=== PATIENT | female | born 1945 | race Caucasian/White ===

== ENCOUNTER 2018-04-13 18:13 | Inpatient (IN) ==
--- NOTE | 2018-04-13 19:38 | Diag Imaging Result Doc PS360 ---
CHEST-PORTABLE - 04/13/2018 INDICATION: AMS COMPARISON: 04/02/2018 FINDINGS: The lungs are normally expanded and clear. Heart size and mediastinal contours are normal. No pneumothorax or pleural effusion. IMPRESSION: Negative exam. Electronically signed by Hernando Renteria 04/13/2018 7:36 PM
[2018-04-13 19:58] LABS: BASO# 0.08 X1000 (0.0-0.2); BASO% 0.9 % (0.0-0.8); EOS# 0.24 X1000 (0.0-0.7); EOS% 2.7 % (0.0-10.0); HEMATOCRIT 44.5 % (37.0-47.0); HEMOGLOBIN 14.3 g/dL (12.0-16.0); IMM GRAN# 0.05 X1000 (0.0-0.04); IMM GRAN% 0.6 % (0.0-0.5); LYMPH# 2.06 X1000 (1.2-3.4); LYMPH% 23.2 % (20.5-51.1); MCHC 32.1 g/dL (33-37); MONO# 1.25 X1000 (0.11-0.59); MONO% 14.1 % (1.7-9.3); MPV 9.4 FL (7.4-10.4); NEUT% 58.5 % (42.2-75.2); PLT 631 X1000 (130-400); RDW 15.5 % (11.5-14.5); WBC 8.88 X1000 (4.8-10.8)
[2018-04-13 20:02] LABS: INR 1.06; PROTIME 14.6 Seconds (11.0-16.0)
[2018-04-13 20:23] LABS: AGAP 13; ALB/GLOB RATIO 1.4; ALKALINE PHOSPHATASE 134 U/L (32-104); BUN 11 mg/dL (8-22); CALCIUM 10.3 mg/dL (8.8-10.2); CHLORIDE 98 mmol/L (98-107); CK PROFILE 21 U/L (24-173); COSMO 281; CREATININE 0.8 mg/dL (0.5-0.9); ESTIMATED GFR > 60; GLUCOSE 177 mg/dL (70-104); GOT 50 U/L (10-30); GPT 32 U/L (10-36); MAGNESIUM 1.8 mg/dL (1.5-2.7); POTASSIUM 4.8 mmol/L (3.5-5.1); SODIUM 139 mmol/L (136-145); TCO2 28 mmol/L (25-35); TOTAL BILIRUBIN 0.36 mg/dL (0.20-1.00); TOTAL PROTEIN 6.8 g/dL (6.3-8.3)
--- NOTE | 2018-04-13 20:39 | Diag Imaging Result Doc PS360 ---
CT HEAD W/O CONTRAST - 04/13/2018 INDICATION: AMS COMPARISON: 04/08/2018 FINDINGS: The ventricles and sulci are normal in size and contour. No intracranial mass or hemorrhage. The skull is intact. The sinuses mastoids and middle ears are clear. IMPRESSION: Negative exam. This exam was performed using automated exposure control, adjustment of mA or kV according to patient size, and/or use of iterative reconstruction technique Electronically signed by Hernando Renteria 04/13/2018 8:37 PM
[2018-04-14 00:18] LABS: URINE SOURCE CATH
[2018-04-14 00:47] LABS: BILIRUBIN URINE NEGATIVE (NEGATIVE); BLOOD URINE SMALL (NEGATIVE); COLOR YELLOW; GLUCOSE URINE NEGATIVE (NEGATIVE); KETONE URINE NEGATIVE (NEGATIVE); LEUKOCYTES URINE LARGE (NEGATIVE); NITRITE URINE NEGATIVE (NEGATIVE); PROTEIN URINE TRACE mg/dL (NEGATIVE); TURBIDITY URINE HAZY (CLEAR); UR EPITHELIAL CELLS <10 /HPF (<10); URINE BACTERIA NEGATIVE /HPF; URINE RBC <10 /HPF (<10); URINE WBC TNTC /HPF (<10); UROBILINOGEN URINE NORMAL (NORMAL)
[2018-04-14] MEDS ORDERED: NS 1,000 ML IV ONE (00:51)
[2018-04-14] MEDS ORDERED: ROCEPHIN 2 GM in NS 50 ML IV ONE (00:51)
--- NOTE | 2018-04-14 00:54 | PROVIDER DOCUMENTATION ---
This chart was entered by Ольга Fontanez Scribe, acting as scribe for Radha Campos MD. HPI-Neurological Disorder - General Chief Complaint: Altered Mental Status Stated Complaint: AMS Time Seen by Provider: 04/13/18 18:18 Source: EMS, senior living records Unable to obtain history due to:: altered Allergies/Adverse Reactions: Patient Allergies Allergy/AdvReac Type Severity Reaction Status Date / Time Neuromuscular Blockers, AdvReac Severe SWELLING Verified 03/29/18 13:46 Steroidal [Steroidal Neuromuscular Blockers] Home Medications: Home Medication List Medication Instructions Recorded Confirmed Last Taken Type Trazodone [Desyrel] 100 mg PO QHS 06/13/12 04/02/18 04/01/18 21:00 History Clonidine [Catapres] 1 tab PO BID 04/25/13 04/02/18 04/02/18 08:00 History Glipizide [Glucotrol] 20 mg PO BID 04/25/13 04/02/18 04/02/18 08:00 History Levothyroxine [Synthroid] 50 microgm PO DAILY 04/25/13 04/02/18 04/02/18 08:00 History Saxagliptin HCl/Metformin HCl 1 each PO DAILY 04/25/13 04/02/18 04/01/18 08:00 History [Kombiglyze Xr 2.5-1,000 mg Tab] Verapamil HCl [Verapamil ER] 240 mg PO BID 04/25/13 04/02/18 04/02/18 08:00 History Fesoterodine E.r [Toviaz] 4 mg PO HS 10/02/13 04/02/18 04/01/18 21:00 History Loratadine [Alavert] 10 mg PO DAILY 10/02/13 04/02/18 04/02/18 08:00 History Mirabegron [Myrbetriq] 25 mg PO DAILY 10/02/13 04/02/18 04/02/18 08:00 History Om-3/Epa/Dha/Fish Oil/Flax/E 3 each PO DAILY 10/02/13 04/02/18 04/02/18 08:00 History [Thera Tears Nutrition Capsule] LOVAstatin [Mevacor] 40 mg PO HS 07/12/17 04/02/18 03/31/18 21:00 History Montelukast [Singulair] 10 mg PO QHS 07/12/17 04/02/18 04/01/18 21:00 History Papaya [Papaya Enzyme] 1 ea PO 4XDAY #120 tab 07/15/17 04/02/18 04/01/18 21:00 Rx Loxapine Succinate [Loxapine] 5 mg PO QHS 01/26/18 04/02/18 04/01/18 21:00 History Magnesium Oxide [Mag-Oxide 200 mg PO TID #30 tab 03/29/18 04/02/18 04/02/18 08: 00 Rx Magnesium] Alprazolam 0.25 mg PO BID PRN PRN 04/02/18 04/02/18 04/01/18 21:00 History Imipramine HCl 10 mg PO QHS 04/02/18 04/02/18 04/01/18 21:00 History Loxapine [Loxitane] 5 mg PO QHS 04/02/18 04/02/18 04/01/18 21:00 History Oxycodone HCl/Acetaminophen 5 mg PO 4XDAY PRN PRN 04/02/18 04/02/18 Unknown History [Percocet 5-325 mg Tablet] Gabapentin [Neurontin] 100 mg PO TID capsule 04/08/18 Unknown Rx Lubiprostone [Amitiza] 8 microgm PO BID capsule 04/08/18 Unknown Rx - History of Present Illness-Neuro Nature of Presenting Problem: pt is a 72 yr old female presenting via EMS from senior living with 2 day complaint of AMS, pt not speaking, no weakness or facial drooping, pt follows physical commands but will not speak Onset/Duration: reports: 2 days ago Context: reports: other (pt aphasic per nursing staff x 2 days) Approximate time patient was last seen normal?: 00:00 (2 days ago) Character of Altered Mental Status: reports: other (aphasic) Any recent trauma/injury?: reports: none Character of Deficits: reports: impaired speech (aphasic) New weakness or altered sensation location:: reports: none Cognitive Baseline: other (alert, aphasic) Similar Symptoms Previously?: No Recently seen or treated by another doctor?: Yes Review of Systems - Adult - REVIEW OF SYSTEMS - ADULT ROS:: unobtainable per condition (pt not speaking) Constitutional: reports: no symptoms reported Eyes: reports: no symptoms reported Ears, Nose, Mouth & Throat: reports: no symptoms reported Cardiovascular: reports: no symptoms reported Respiratory: reports: no symptoms reported Gastrointestinal: reports: no symptoms reported Genitourinary: reports: no symptoms reported Musculoskeletal: reports: no symptoms reported Integumentary: reports: no symptoms reported Neurological: reports: no symptoms reported Psychiatric: reports: no symptoms reported Endocrine: reports: no symptoms reported Hematologic/Lymphatic: reports: no symptoms reported Allergic/Immunologic: reports: no symptoms reported All Other Systems: Reviewed and Negative Past History - Adult - PAST MEDICAL HISTORY-ADULT Review of Records: reports: Old Records Reviewed, Nursing Assessment Review, Medications Reviewed, Social history reviewed & non-contributory. Major Childhood Illnesses: reports: denies history Cardiovascular: reports: HTN, hyperlipidemia Respiratory: reports: asthma, sleep apnea, other (sleep apnea) Gastrointestinal: reports: diverticulosis, GERD Obstetrical/Gynecological: reports: other (R breast CA) Genitourinary: reports: chronic UTI's Musculoskeletal: reports: arthritis (OA), chronic pain, fibromyalgia, other ( bursitis L knee) Neurological: reports: CVA, TIA Psychiatric: reports: psychiatric problems Endocrine/Immune: reports: Diabetes, thyroid disorder Other Conditions: reports: denies history, cataract/glaucoma, MRSA - PRIOR SURGERIES/PROCEDURES Surgical/Procedure History: reports: hysterectomy, tonsillectomy, orthopedic ( extremity) (R shoulder), joint replacement (knee), breast (mastectomy), other ( cataract removal, lymphectomy, cystohydro dilation) - IMMUNIZATION STATUS Childhood Immunizations: See Nurse Assessment Flu Vaccine: See Nurse Assessment - FAMILY HISTORY Family History: reviewed, not pertinent - SOCIAL HISTORY Living Situation: care facility Physical Exam- Neurological - Physical Exam-Neuro Initial Vital Signs Reviewed: Yes General Appearance: appears well, alert, no apparent distress, other (aphasic) Eye Exam: bilateral eye: normal inspection HENMT: normocephalic/atraumatic, moist mucous membranes, normal ENT inspection Head Injury: no evidence of injury Neck: full range of motion, supple, normal inspection Respiratory: lungs clear, normal breath sounds, no respiratory distress, no accessory muscle use Cardiovascular: normal peripheral pulses, regular rate, rhythm Abdominal Exam: normal bowel sounds, non tender, soft Lymphatic: no adenopathy Extremity: normal range of motion, non-tender, normal gait, 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 negative: abnormal pupil position, facial droop, facial paresthesias, facial weakness, gaze palsy, tongue deviation to R, tongue deviation to L Motor/Sensory: no motor deficit, no pronator drift Neurologic: aphasia. negative: facial droop, focal weakness, motor weakness Integumentary: normal color, normal turgor, warm/dry - Glascow Coma Scale Best Eye Response: (4) open spontaneously Best Verbal Response: (1) no verbal response Best Motor Response: (6) obeys commands Total Glascow Score: 11 Progress - PLAN OF CARE/RESULTS Progress/Plan/Lab Results: Vital Signs - 8 hr 04/13/18 19:01 Temperature 97.6 F Pulse Rate 78 Respiratory Rate 16 Blood Pressure 162/107 O2 Sat by Pulse Oximetry 97 Laboratory Results - last 24 hr 04/13/18 04/13/18 04/13/18 00:10 19:25 19:25 WBC RBC Hgb Hct MCV MCH MCHC RDW Std Deviation Plt Count MPV Immature Gran % (Auto) Neut % (Auto) Lymph % (Auto) Ballard % (Auto) Eos % (Auto) Baso % (Auto) Immature Gran # (Auto) Neut # (Auto) Lymph # (Auto) Ballard # (Auto) Eos # (Auto) Baso # (Auto) PT 14.6 INR 1.06 PTT (Actin FS) 31.0 Sodium Potassium Chloride Carbon Dioxide Anion Gap BUN Creatinine Estimated GFR/1.73 m2 BUN/Creatinine Ratio Glucose Calculated Osmolality Calcium Magnesium Total Bilirubin AST ALT Alkaline Phosphatase Creatine Kinase Troponin T 0.010 Total Protein Albumin Globulin Albumin/Globulin Ratio Plasma Lactate Urine Source CATH Urine Color YELLOW Urine Turbidity HAZY Urine pH 8.0 Ur Specific Wilder 1.010 Urine Protein TRACE A Ur Glucose (Stick) NEGATIVE Ur Ketones (Stick) NEGATIVE Urine Blood SMALL A Urine Nitrite NEGATIVE Urine Bilirubin NEGATIVE Urobilinogen Dipstick NORMAL Urine Leukocytes LARGE A Urine WBC (Auto) TNTC A Urine RBC (Auto) <10 U Epithel Cells (Auto) <10 Urine Bacteria (Auto) NEGATIVE 04/13/18 04/13/18 04/13/18 19:25 19:25 19:25 WBC 8.88 RBC 5.30 Hgb 14.3 Hct 44.5 MCV 84.0 MCH 27.0 MCHC 32.1 L RDW Std Deviation 15.5 H Plt Count 631 H MPV 9.4 Immature Gran % (Auto) 0.6 H Neut % (Auto) 58.5 Lymph % (Auto) 23.2 Ballard % (Auto) 14.1 H Eos % (Auto) 2.7 Baso % (Auto) 0.9 H Immature Gran # (Auto) 0.05 H Neut # (Auto) 5.20 Lymph # (Auto) 2.06 Ballard # (Auto) 1.25 H Eos # (Auto) 0.24 Baso # (Auto) 0.08 PT INR PTT (Actin FS) Sodium 139 Potassium 4.8 Chloride 98 Carbon Dioxide 28 Anion Gap 13 BUN 11 Creatinine 0.8 Estimated GFR/1.73 m2 > 60 BUN/Creatinine Ratio 14 Glucose 177 H Calculated Osmolality 281 Calcium 10.3 H Magnesium 1.8 Total Bilirubin 0.36 AST 50 H ALT 32 Alkaline Phosphatase 134 H Creatine Kinase 21 L Troponin T Total Protein 6.8 Albumin 4.0 Globulin 2.8 Albumin/Globulin Ratio 1.4 Plasma Lactate 1.4 Urine Source Urine Color Urine Turbidity Urine pH Ur Specific Wilder Urine Protein Ur Glucose (Stick) Ur Ketones (Stick) Urine Blood Urine Nitrite Urine Bilirubin Urobilinogen Dipstick Urine Leukocytes Urine WBC (Auto) Urine RBC (Auto) U Epithel Cells (Auto) Urine Bacteria (Auto) Orders Category Date Time Status CT HEAD W/O CONTRAST [CT] Stat Exams 04/13/18 18:27 Completed cxr [CHEST-PORTABLE] [RAD] Stat Exams 04/13/18 18:26 Completed CBC WITH ELECTRONIC DIFF [HEME] Stat Lab 04/13/18 19:25 Completed CK PROFILE [SP CHEM] Stat Lab 04/13/18 19:25 Completed COMPREHENSIVE METABOLIC PANEL [CHEM] Stat Lab 04/13/18 19:25 Completed LACTATE, PLASMA [CHEM] Stat Lab 04/13/18 19:25 Completed MAGNESIUM [CHEM] Stat Lab 04/13/18 19:25 Completed PROTIME WITH INR [COAG] Stat Lab 04/13/18 19:25 Completed PTT [COAG] Stat Lab 04/13/18 19:25 Completed TROPONIN T Stat Lab 04/13/18 19:25 Completed URINALYSIS W/POSS RFLX CULT [URINALYSIS] Stat Lab 04/13/18 00:10 Completed 0.9% Sodium Chloride Inj [Ns] 1,000 ml Med 04/14/18 00:51 Active IV 999 mls/hr CefTRIAXONE [Rocephin] 2 gm Med 04/14/18 00:51 Active 0.9% Sodium Chloride Inj [Ns] 50 ml IV NOW EKG [EKG] Stat Ther 04/13/18 18:28 Ordered Result Diagrams: 04/13/18 19:25 04/13/18 19:25 - REASSESSMENT Reassessment #1 Time Reassessed: 22:55 Status: other (STILL PENDING UA RESULT TO ADMIT PATIENT) Reassessment #2 Time Reassessed: 00:02 Status: other (STILL PENDING UA TO ENSURE NO UTI) Reassessment #3 Time Reassessed: 00:53 Status: other (METABOLIC ENCEPHALOPATHY DUE TO UTI; WILL ADMIT) - EKG 1 Time of EKG reading by physician:: 20:04 EKG Read and Signed by:: Radha Campos EKG Interpretation (*Must complete 3 of following elements*): Abnormal Rate: 77 Rhythm: nsr QRS: LVH (min criteria) LA Interval: normal ST Wave: normal - XRAY 1 XRAY Study: Chest ([facility] [address] , [address], [place] [address] Department of Imaging Patient: BARBI SANTORO WVNGA Date: #: [id number] : 7ADM Status: [facility]#: [id number] Age/Sex: 72/FRoom/Bed: Loc: ED Ordering Physician: Radha Campos MD Family Physician: Darvin Vega MD Reason for Procedure: AMS Signed CHEST- PORTABLE - 04/13/2018 INDICATION: AMS COMPARISON: 04/02/2018 FINDINGS: The lungs are normally expanded and clear. Heart size and mediastinal contours are normal. No pneumothorax or pleural effusion. IMPRESSION: Negative exam. Electronically signed by Hernando Renteria 04/13/2018 7:36 PM 04/13/181935 Interpreting Physician: Hernando Renteria MD Dictated Date/Time: 04/13/181934 cc: Radha Campos MD; Darvin Vega MD) - CT/MRI 1 CT Study: Head Impression: Normal (Signed CT HEAD W/O CONTRAST - 04/13/2018 INDICATION: AMS COMPARISON: 04/08/2018 FINDINGS: The ventricles and sulci are normal in size and contour. No intracranial mass or hemorrhage. The skull is intact. The sinuses mastoids and middle ears are clear. IMPRESSION: Negative exam. This exam was performed using automated exposure control, adjustment of mA or kV according to patient size, and/or use of iterative reconstruction technique Electronically signed by Hernando Renteria 04/13/2018 8: 37 PM) Comparison with other Films: no changes (04/08/18) Departure - Departure Date of Disposition Decision: 04/14/18 Time of Disposition Decision: 00:53 DIAGNOSIS: UTI (urinary tract infection), Altered mental state Disposition: ADMITTED INPATIENT 09 Certified Medical Emergency: Emergent Condition: Fair Referrals and Follow-Ups: Darvin Vega MD [Primary Care Provider] - - Critical Care Note This patient required my direct & personal management of CC.: No Attestation - Physician/ YOLANDE Attestation Patient care was provided by Advanced Practice Provider:: No The physician spent face to face time with patient:: Yes Advanced Practice Provider documentation review:: Supervising physician onsite and consulted in the evaluation and care of this patient. The physician did have a face to face encounter with the patient. This chart was documented by the indicated scribe, (Ольга Fontanez Scribe) and accurately reflects the services I performed and decisions made by me, Radha Campos MD, as attested by the provider's signature.
[2018-04-14] MEDS ORDERED: ZOFRAN IV PRN (02:58)
[2018-04-14] MEDS: NS 1,000 ML IV SCH ×2 (04:11→17:19)
[2018-04-14] MEDS: LOVENOX SUBQ SCH (04:12)
--- NOTE | 2018-04-14 06:00 | HISTORY AND PHYSICAL ---
CHIEF COMPLAINT: Altered mental status. HISTORY OF PRESENT ILLNESS: Ms. Martin is a 72-year-old female who came in from the longterm with a 2-day complaint of altered mental status, not speaking. Patient follows some commands. She does speak some but only to certain things. She has no weakness or facial droop. She is alert, however, for the most part does not speak. She shook her head no during the interview to any type of pain. She was discharged from the hospital it looks like roughly 5 days ago. She has a past medical history of GERD and H. pylori gastritis in the past, dysphagia, frequent falls and weakness requiring a walker, hypothyroidism, diabetes mellitus type 2, hypertension, anxiety and depression, chronic pain, right-sided breast cancer status post mastectomy. She had hyponatremia which was corrected over an appropriate amount of time during her last admission here. Other than her bizarre affect and not speaking, the patient for the most part seems to understand what is going on. Laboratory data is grossly normal. Her urine did show leukocyte esterase positive with too numerous to count WBCs. She will be admitted for treatment of a UTI with questionable schizoaffective psychological type disorder to the medical floor for further evaluation and treatment. PAST MEDICAL HISTORY: See HPI. PREVIOUS SURGICAL HISTORY: 1. Hysterectomy. 2. Bilateral knee replacements. 3. Right mastectomy. SOCIAL HISTORY: . Came in from the longterm. Is unable to provide any information at this time. Per old medical records, she denies alcohol, tobacco and illicit drug use or abuse. FAMILY HISTORY: Cannot be obtained. ALLERGIES: Neuromuscular blockage and steroids. HOME MEDICATIONS: Pending at this time. An order has been placed for Nursing to reconcile home medications. On her discharge , the patient's medicines were noted as Neurontin, Amitiza, trazodone, clonidine, verapamil, glipizide, levothyroxine, loratadine, Toviaz, Myrbetriq, Mevacor, Singulair, loxapine, magnesium oxide, imipramine, Percocet 5 mg and alprazolam 0.25 mg. These can be restarted when appropriate. REVIEW OF SYSTEMS: This could not be conducted as the patient is for the most part not speaking. PHYSICAL EXAMINATION: VITAL SIGNS: Temperature 97.6, pulse 78, respirations 16, blood pressure 142/80 , oxygen saturation 98% on room air. GENERAL: A 72-year-old female who is awake and alert. She did respond verbally mostly just repeating what I had said. I am unsure if she is of her orientation, but she is in no acute distress. HEENT: Head is atraumatic, normocephalic. Pupils equal, round, reactive to light. Extraocular eye movement is intact. Sclerae are anicteric. Conjunctiva is pink. Oral mucosa is moist. NECK: Supple. No JVD. No thyromegaly. Trachea is midline. No cervical lymphadenopathy. CARDIAC: S1, S2 appreciated. No murmurs, gallops, or rubs. LUNGS: Clear to auscultation bilaterally. No rhonchi, wheezes or rales. Symmetric rise and fall with respirations. ABDOMEN: Soft, nondistended, nontender. Bowel sounds present all 4 quadrants, normoactive. No pulsatile mass. No organomegaly. EXTREMITIES: No clubbing, cyanosis, or edema. One-plus pedal pulses bilaterally. GENITOURINARY: No bladder distention. No discomfort to palpation in the suprapubic area. Otherwise deferred. NEUROLOGICAL: Awake and alert. Orientation could not be tested as patient is for the most part nonverbal at this time. She did follow most commands. DIAGNOSTIC DATA: CT of the head essentially a normal study. Chest x-ray: Negative examination. LABORATORY DATA: CBC within normal limits. Coagulation studies within normal limits. Chemistry within normal limits other than a glucose of 177. Magnesium 1.8. CK and troponin within normal limits. Urine: Leukocyte esterase positive with too numerous to count WBCs and a small amount of blood. ASSESSMENT AND PLAN: 1. Pyuria with questionable urinary tract infection. Rocephin was given in the emergency room. We will continue on the medical floor. 2. Questionable psychosis versus some type of schizoaffective disorder. Patient is on multiple psychiatric medications. According to her discharge summary, some of those are for psychosis including loxapine. We will hold [employer] depressant medications at this time. They can be restarted tomorrow if appropriate. At this point, I am unsure of the patient 's cause for her altered mental status. She does not have any neuromotor deficits. 3. Hypothyroidism. Continue Synthroid once medication is reconciled in computer. 4. Diabetes mellitus. Sliding scale insulin. Fingerstick blood sugar. 5. History of depression and anxiety. We will continue to monitor and restart home medications when appropriate. Further recommendations per patient clinical course. Dictated by CYDNEY Madera for Cristina Vail MD cc: CYDNEY Madera MD Dahiana Roblero I personally examined patient. She appears to have a possible psychotic event although a yet to be determined neurologic pathology,e.g. dystonic reaction needs to be ruled out. Withhold all potential neurotoxic meds. Reassess daily and if in 2 days no change, pt needs labs repeated and possible radioimaging studies. MTDD
[2018-04-14] MEDS: HUMALOG SUBQ SCH ×4 (06:13→21:55)
[2018-04-14] MEDS ORDERED: CALMOSEPTINE OINTMENT TOP PRN (06:34)
--- NOTE | 2018-04-14 15:09 | PROGRESS NOTE ---
DATE: 04/14/2018 SUBJECTIVE: The patient is confused this morning. No other acute events noted. OBJECTIVE: Vital Signs: Temperature 97 degrees, blood pressure 159/89, heart rate 88, respirations 16, O2 saturation 98% on room air. General: This is an overweight female lying in bed in no acute distress. Heart: S1, S2 normal. Regular rate and rhythm. Lungs: Clear to auscultation bilaterally. Abdomen: Positive bowel sounds. Soft, nontender, nondistended. Extremities: No edema, no cyanosis. Neuro: The patient is awake but confused. She is able to move all 4 extremities. LABS: None. ASSESSMENT AND PLAN: 1. Altered mental status. This may be secondary to an underlying urinary tract infection. Will continue to treat the underlying infection. 2. Urinary tract infection. Continue on Rocephin. Will follow up on the urine culture results. 3. Schizoaffective disorder. Will restart the patient's antipsychotic medications. 4. Hypothyroidism. Continue on Synthroid. 5. Diabetes mellitus type 2. Continue on sliding scale insulin. 6. Anxiety disorder. Continue on Xanax. 7. Chronic constipation. Continue on Amitiza. 8. Will consult physical therapy. cc: Carola Diaz MD
[2018-04-14] MEDS: MEVACOR PO SCH (17:19)
[2018-04-14] MEDS: ISOPTIN SR PO SCH (20:08)
[2018-04-14] MEDS: TOVIAZ PO SCH (20:08)
[2018-04-14] MEDS: AMITIZA PO SCH (20:08)
[2018-04-14] MEDS: SINGULAIR PO SCH (20:08)
[2018-04-14] MEDS: LOXITANE PO SCH (20:08)
[2018-04-14] MEDS: IMIPRAMINE HCL PO SCH (20:11)
[2018-04-14] MEDS: DESYREL PO SCH (20:11)
[2018-04-15] MEDS ORDERED: ROCEPHIN 1 GM in NS 50 ML IV SCH (01:00)
[2018-04-15] MEDS: LOVENOX SUBQ SCH (02:49)
[2018-04-15] MEDS: HUMALOG SUBQ SCH ×4 (06:06→20:46)
[2018-04-15] MEDS: SYNTHROID PO SCH (06:06)
[2018-04-15 07:18] LABS: BASO# 0.06 X1000 (0.0-0.2); BASO% 0.6 % (0.0-0.8); EOS# 0.04 X1000 (0.0-0.7); EOS% 0.4 % (0.0-10.0); HEMATOCRIT 48.4 % (37.0-47.0); HEMOGLOBIN 16.5 g/dL (12.0-16.0); IMM GRAN# 0.05 X1000 (0.0-0.04); IMM GRAN% 0.5 % (0.0-0.5); LYMPH# 1.79 X1000 (1.2-3.4); LYMPH% 18.6 % (20.5-51.1); MCH 28.3 PG (27-31); MCHC 34.1 g/dL (33-37); MCV 82.9 FL (81-99); MONO# 0.79 X1000 (0.11-0.59); MONO% 8.2 % (1.7-9.3); MPV 9.2 FL (7.4-10.4); NEUT# 6.88 X1000 (1.4-6.5); NEUT% 71.7 % (42.2-75.2); PLT 493 X1000 (130-400); RBC 5.84 XMIL (4.2-5.4); RDW 15.1 % (11.5-14.5); WBC 9.61 X1000 (4.8-10.8)
[2018-04-15 07:39] LABS: AGAP 18; BUN 8 mg/dL (8-22); CALCIUM 9.6 mg/dL (8.8-10.2); CHLORIDE 96 mmol/L (98-107); COSMO 272; CREATININE 0.6 mg/dL (0.5-0.9); ESTIMATED GFR > 60; GLUCOSE 163 mg/dL (70-104); MAGNESIUM 1.5 mg/dL (1.5-2.7); PHOSPHORUS 3.9 mg/dL (2.7-4.5); POTASSIUM 4.5 mmol/L (3.5-5.1); SODIUM 135 mmol/L (136-145); TCO2 21 mmol/L (25-35)
--- NOTE | 2018-04-15 07:42 | EKG Report ---
Test Performed on : 04/14/2018 09:42:50 AM Test Reason : chest pain Blood Pressure : / mmHG Vent. Rate : 087 BPM Atrial Rate : 087 BPM P-R Int : 156 ms QRS Dur : 074 ms QT Int : 398 ms P-R-T Axes : 046 -06 046 degrees QTc Int : 478 ms Sinus rhythm. with premature atrial complexes. Minimal voltage criteria for LVH, may be normal variant Nonspecific ST abnormality Abnormal ECG When compared with ECG of 13-APR-2018 20:04, (Unconfirmed) premature atrial complexes. are now present Confirmed by Lashon DOE, Rashad Vázquze ([id number]) on 04/18/2018 8:39:10 AM
--- NOTE | 2018-04-15 08:22 | EKG Report ---
Test Performed on : 04/13/2018 8:04:00 PM Test Reason : AMS Blood Pressure : / mmHG Vent. Rate : 077 BPM Atrial Rate : 077 BPM P-R Int : 164 ms QRS Dur : 074 ms QT Int : 400 ms P-R-T Axes : 036 -03 047 degrees QTc Int : 452 ms Normal sinus rhythm. Minimal voltage criteria for LVH, may be normal variant Borderline ECG When compared with ECG of 29-MAR-2018 13:54, (Unconfirmed) No significant change was found Unconfirmed Result
[2018-04-15] MEDS: MYRBETRIQ E.R. PO SCH (09:49)
[2018-04-15] MEDS: CLARITIN PO SCH (09:49)
[2018-04-15] MEDS: ISOPTIN SR PO SCH ×2 (09:49→20:37)
[2018-04-15] MEDS: AMITIZA PO SCH ×2 (09:49→20:37)
[2018-04-15] MEDS ORDERED: MAGNESIUM SULFATE 2 GM/S.W.I. 2 GM/50 ML IVPB IV ONE (09:56)
[2018-04-15] MEDS: MAXIPIME 1 GM in NS 50 ML IV SCH ×2 (10:54→21:30)
[2018-04-15] MEDS: CLINIMIX E 4.25%-5% SOLUTION 1,000 ML IV SCH (10:54)
--- NOTE | 2018-04-15 15:15 | PROGRESS NOTE ---
DATE: 04/15/2018 SUBJECTIVE: The patient is resting comfortably in bed. She remains confused and will not speak. OBJECTIVE: Vital Signs: Temperature 98.2, blood pressure 156/95, heart rate 95 , respirations 18, O2 saturation 99% on room air. General: This is an overweight female lying in bed in no acute distress. Heart: S1, S2 normal. Regular rate and rhythm. Lungs clear to auscultation bilaterally. Abdomen: Positive bowel sounds. Soft, nontender, nondistended. Extremities: No edema. No cyanosis. Neuro: The patient is awake but will not speak. She also appears to be confused. LABORATORY DATA: White blood cell count 9.6, hemoglobin 16, hematocrit 48, platelets 493,000. Sodium 135, potassium 4.5. BUN 8, creatinine 0.6, glucose 163. ASSESSMENT AND PLAN: 1. Metabolic encephalopathy. The head CT was unrevealing. The patient does have an underlying urinary tract infection. Will continue to treat the infection and monitor the patient's mental status closely. 2. Urinary tract infection. The urine culture is growing gram-negative rods. Continue on cefepime. Will await the final culture results. 3. Cricopharyngeal achalasia. Aware. The patient will follow up with GI as outpatient. 4. Anxiety disorder. Continue on Xanax. 5. Hypothyroidism. Continue on Synthroid. 6. Chronic constipation. Continue on the current bowel regimen. 7. Schizoaffective disorder. Continue on loxapine. 8. Gastritis. We will start the patient on omeprazole. 9. Gastroparesis. Aware. cc: Carola Diaz MD MTD
[2018-04-15] MEDS: MEVACOR PO SCH (17:03)
[2018-04-15] MEDS: TOVIAZ PO SCH (20:37)
[2018-04-15] MEDS: SINGULAIR PO SCH (20:37)
[2018-04-15] MEDS: LOXITANE PO SCH (20:37)
[2018-04-15] MEDS: DESYREL PO SCH (20:37)
[2018-04-15] MEDS: IMIPRAMINE HCL PO SCH (20:37)
[2018-04-16] MEDS: CLINIMIX E 4.25%-5% SOLUTION 1,000 ML IV SCH ×2 (01:25→15:57)
[2018-04-16] MEDS: HUMALOG SUBQ SCH ×4 (06:25→22:08)
[2018-04-16] MEDS: LOVENOX SUBQ SCH (06:25)
[2018-04-16] MEDS: PRILOSEC PO SCH (06:26)
[2018-04-16] MEDS: SYNTHROID PO SCH (06:26)
[2018-04-16 07:01] LABS: BASO# 0.08 X1000 (0.0-0.2); BASO% 0.5 % (0.0-0.8); EOS# 0.12 X1000 (0.0-0.7); EOS% 0.8 % (0.0-10.0); HEMATOCRIT 40.6 % (37.0-47.0); HEMOGLOBIN 13.5 g/dL (12.0-16.0); IMM GRAN# 0.06 X1000 (0.0-0.04); IMM GRAN% 0.4 % (0.0-0.5); LYMPH# 1.78 X1000 (1.2-3.4); MCH 27.4 PG (27-31); MCHC 33.3 g/dL (33-37); MCV 82.5 FL (81-99); MONO# 1.62 X1000 (0.11-0.59); MPV 9.2 FL (7.4-10.4); NEUT# 11.13 X1000 (1.4-6.5); NEUT% 75.3 % (42.2-75.2); PLT 592 X1000 (130-400); RBC 4.92 XMIL (4.2-5.4); RDW 14.7 % (11.5-14.5); WBC 14.79 X1000 (4.8-10.8)
[2018-04-16 07:07] LABS: HEMOGLOBIN A1C 6.3 % (4.8-6.0)
[2018-04-16 07:19] LABS: MAGNESIUM 1.9 mg/dL (1.5-2.7); PHOSPHORUS 4.2 mg/dL (2.7-4.5)
[2018-04-16 07:24] LABS: AGAP 15; ALB/GLOB RATIO 1.1; ALBUMIN 3.5 g/dL (3.5-5.0); ALKALINE PHOSPHATASE 92 U/L (32-104); BUN 14 mg/dL (8-22); CALCIUM 9.1 mg/dL (8.8-10.2); CHLORIDE 97 mmol/L (98-107); COSMO 278; CREATININE 0.6 mg/dL (0.5-0.9); ESTIMATED GFR > 60; GLUCOSE 237 mg/dL (70-104); GOT 18 U/L (10-30); GPT 20 U/L (10-36); POTASSIUM 4.4 mmol/L (3.5-5.1); SODIUM 135 mmol/L (136-145); TCO2 23 mmol/L (25-35); TOTAL BILIRUBIN 0.35 mg/dL (0.20-1.00); TOTAL PROTEIN 6.7 g/dL (6.3-8.3)
[2018-04-16] MEDS: MYRBETRIQ E.R. PO SCH (09:15)
[2018-04-16] MEDS: AMITIZA PO SCH ×2 (09:15→22:07)
[2018-04-16] MEDS: CLARITIN PO SCH (09:15)
[2018-04-16] MEDS: MAXIPIME 1 GM in NS 50 ML IV SCH (09:15)
[2018-04-16] MEDS: ISOPTIN SR PO SCH ×2 (09:15→22:07)
[2018-04-16] MEDS ORDERED: ATIVAN IV ONE (13:25)
--- NOTE | 2018-04-16 14:26 | PROGRESS NOTE ---
DATE: 04/14/2018 SUBJECTIVE: The patient remains confused. OBJECTIVE: Vital Signs: Temperature 97 degrees, blood pressure 154/82, heart rate 101, respirations 18, O2 saturation is 100% on room air. General: This is an elderly female lying in bed in no acute distress. Heart: S1, S2. Normal. Lungs: Clear to auscultation bilaterally. Abdomen: Positive bowel sounds. Soft, nontender, nondistended. Extremities: No edema, no cyanosis. Neurologic: The patient is alert, but confused. She is able to move all 4 extremities. LABS: White blood cell count 14, hemoglobin 13, hematocrit 40, platelets 592. Sodium 135, potassium 4.4, chloride 97, CO2 23. BUN 14, creatinine 0.6, glucose 237. Hemoglobin A1c 6.3. ASSESSMENT AND PLAN: 1. Metabolic encephalopathy. Unchanged. The patient is scheduled to undergo a magnetic resonance imaging today. 2. Urinary tract infection secondary to Proteus. We will change the patient to Zosyn. 3. Cricopharyngeal achalasia. Aware. 4. Anxiety disorder. Continue on Xanax. 5. Schizoaffective disorder. Continue on loxapine. 6. Chronic constipation. Continue with scheduled laxative therapy. 7. Gastritis. Continue on omeprazole. 8. Gastroparesis. Aware. cc: Carola Diaz MD
--- NOTE | 2018-04-16 14:43 | Diag Imaging Result Doc PS360 ---
EXAM: MRI BRAIN W/O CONTRAST INDICATION: encephalopathy COMPARISON: None. FINDINGS: There is no evidence of acute infarct. There is patchy T2/FLAIR hyperintensity in the periventricular and subcortical white matter suggesting moderate microangiopathy. There is no discrete intracranial mass, mass effect, or intracranial hemorrhage. The surrounding soft tissues and bony structures are essentially unremarkable. IMPRESSION: Suggestion of moderate white matter microangiopathy. No evidence of acute intracranial pathology. Electronically signed by Altaf Bennett 04/16/2018 2:41 PM
[2018-04-16] MEDS: ZOSYN 3.375 GM in NS 50 ML IV SCH ×2 (15:57→22:06)
[2018-04-16] MEDS: MEVACOR PO SCH (17:30)
[2018-04-16] MEDS: DESYREL PO SCH (22:07)
[2018-04-16] MEDS: IMIPRAMINE HCL PO SCH (22:07)
[2018-04-16] MEDS: TOVIAZ PO SCH (22:07)
[2018-04-16] MEDS: XANAX PO PRN (22:08)
[2018-04-16] MEDS: SINGULAIR PO SCH (22:08)
[2018-04-16] MEDS: LOXITANE PO SCH (22:08)
[2018-04-17] MEDS: ZOSYN 3.375 GM in NS 50 ML IV SCH ×5 (04:58→21:41)
[2018-04-17] MEDS: CLINIMIX E 4.25%-5% SOLUTION 1,000 ML IV SCH (04:59)
[2018-04-17] MEDS: LOVENOX SUBQ SCH (06:57)
[2018-04-17] MEDS: PRILOSEC PO SCH (06:57)
[2018-04-17] MEDS: SYNTHROID PO SCH (06:58)
[2018-04-17 07:26] LABS: AGAP 10; BUN 15 mg/dL (8-22); CALCIUM 9.3 mg/dL (8.8-10.2); CHLORIDE 97 mmol/L (98-107); COSMO 267; CREATININE 0.6 mg/dL (0.5-0.9); ESTIMATED GFR > 60; GLUCOSE 199 mg/dL (70-104); POTASSIUM 4.2 mmol/L (3.5-5.1); SODIUM 130 mmol/L (136-145); TCO2 23 mmol/L (25-35)
[2018-04-17 07:32] LABS: IMM GRAN% 0.4 % (0.0-0.5)
[2018-04-17 07:57] LABS: BASO# 0.08 X1000 (0.0-0.2); BASO% 0.7 % (0.0-0.8); EOS# 0.31 X1000 (0.0-0.7); EOS% 2.8 % (0.0-10.0); HEMATOCRIT 38.4 % (37.0-47.0); HEMOGLOBIN 12.9 g/dL (12.0-16.0); IMM GRAN# 0.04 X1000 (0.0-0.04); LYMPH# 2.69 X1000 (1.2-3.4); LYMPH% 24.2 % (20.5-51.1); MCH 27.9 PG (27-31); MCHC 33.6 g/dL (33-37); MCV 82.9 FL (81-99); MONO# 1.26 X1000 (0.11-0.59); MONO% 11.3 % (1.7-9.3); MPV 9.6 FL (7.4-10.4); NEUT# 6.74 X1000 (1.4-6.5); NEUT% 60.6 % (42.2-75.2); PLT 531 X1000 (130-400); RBC 4.63 XMIL (4.2-5.4); RDW 14.7 % (11.5-14.5); WBC 11.12 X1000 (4.8-10.8)
[2018-04-17 08:34] LABS: EOS 2 % (1-10); LYMPHS 21 % (21-51); MONO 12 % (1-9); SEGS 65 % (42-75)
[2018-04-17] MEDS: CLARITIN PO SCH (10:13)
[2018-04-17] MEDS: MYRBETRIQ E.R. PO SCH (10:13)
[2018-04-17] MEDS: ISOPTIN SR PO SCH ×2 (10:13→21:54)
[2018-04-17] MEDS: AMITIZA PO SCH ×2 (10:14→21:41)
[2018-04-17] MEDS: COREG PO SCH ×2 (10:17→21:41)
[2018-04-17] MEDS: HUMALOG SUBQ SCH ×3 (11:05→21:42)
--- NOTE | 2018-04-17 15:58 | PROGRESS NOTE ---
DATE: 04/17/2018 SUBJECTIVE: The patient is more awake and alert today. She does have periods where she is oriented; however, she still continues to have world salad OBJECTIVE: Vital Signs: Temperature 97.8 degrees, blood pressure 142/80, heart rate 90, respirations 18, and O2 saturation is 100% on room air. General: This is an elderly female lying in bed, in no acute distress. Heart: S1 and S2 normal. Regular rate and rhythm. Lungs: Equal air entry bilaterally. No wheezing. No rales. No rhonchi. Abdomen: Positive bowel sounds. Soft, nontender, nondistended. Extremities: No edema, no cyanosis. Neurologic: The patient is alert and oriented, however; she does have periods of word salad. LABORATORY: White blood cell count 11, hemoglobin 12, hematocrit 38, platelets 531,000. Sodium 130, potassium 4.2, chloride 97, CO2 of 23, BUN 15, creatinine 0.6, glucose 199. ASSESSMENT AND PLAN: 1. Urinary tract infection secondary to Proteus. Continue on Zosyn. 2. Psychosis. The patient has been having significant word salad. Continue on the antipsychotic. We will likely consult [facility] tomorrow. We will also consult [employer] for geriatric psychiatric placement. 3. Cricopharyngeal achalasia. Aware. 4. Hyponatremia. This is likely secondary to Clinimix. We will discontinue the Clinimix. 5. Anxiety disorder. Continue on Xanax. 6. Hypertension. We will start the patient on Coreg. 7. Hypothyroidism. Continue on Synthroid. 8. Chronic constipation. Continue on Amitiza. 9. Gastroparesis. Aware. 10. Gastritis. Continue on omeprazole. cc: Carola Diaz MD
[2018-04-17] MEDS: MEVACOR PO SCH (16:52)
[2018-04-17] MEDS: TOVIAZ PO SCH (21:41)
[2018-04-17] MEDS: DESYREL PO SCH (21:41)
[2018-04-17] MEDS: LOXITANE PO SCH (21:41)
[2018-04-17] MEDS: SINGULAIR PO SCH (21:41)
[2018-04-17] MEDS: IMIPRAMINE HCL PO SCH (22:00)
[2018-04-18] MEDS: ZOSYN 3.375 GM in NS 50 ML IV SCH ×5 (03:11→21:30)
[2018-04-18] MEDS: HUMALOG SUBQ SCH ×5 (06:21→21:34)
[2018-04-18] MEDS: SYNTHROID PO SCH (06:23)
[2018-04-18] MEDS: PRILOSEC PO SCH (06:23)
[2018-04-18] MEDS: LOVENOX SUBQ SCH (06:23)
[2018-04-18 07:15] LABS: HEMATOCRIT 36.8 % (37.0-47.0); HEMOGLOBIN 12.4 g/dL (12.0-16.0); MCH 28.2 PG (27-31); MCHC 33.7 g/dL (33-37); MCV 83.6 FL (81-99); MPV 9.7 FL (7.4-10.4); RBC 4.4 XMIL (4.2-5.4); RDW 14.4 % (11.5-14.5); WBC 12.35 X1000 (4.8-10.8)
[2018-04-18 07:42] LABS: AGAP 13; BUN 15 mg/dL (8-22); CALCIUM 9.1 mg/dL (8.8-10.2); CHLORIDE 94 mmol/L (98-107); COSMO 266; CREATININE 0.5 mg/dL (0.5-0.9); ESTIMATED GFR > 60; GLUCOSE 215 mg/dL (70-104); POTASSIUM 4.1 mmol/L (3.5-5.1); SODIUM 129 mmol/L (136-145); TCO2 22 mmol/L (25-35)
[2018-04-18] MEDS: MYRBETRIQ E.R. PO SCH (10:04)
[2018-04-18] MEDS: ISOPTIN SR PO SCH ×2 (10:04→21:41)
[2018-04-18] MEDS: CLARITIN PO SCH (10:04)
[2018-04-18] MEDS: COREG PO SCH ×2 (10:04→21:33)
[2018-04-18] MEDS: AMITIZA PO SCH ×2 (10:09→21:33)
[2018-04-18] MEDS: NS 1,000 ML IV SCH (12:12)
[2018-04-18] MEDS: MEVACOR PO SCH (18:09)
--- NOTE | 2018-04-18 18:51 | PROGRESS NOTE ---
DATE: 04/18/2018 SUBJECTIVE: The patient is resting comfortably in bed. No acute events noted overnight. OBJECTIVE: Vital Signs: Temperature 98.1 degrees, blood pressure 129/52, heart rate 65, respirations 18, O2 saturation 98% on room air. General: This is a chronically ill-appearing elderly female lying in bed in no acute distress. Heart: S1, S2 normal. Regular rate and rhythm. Lungs: Equal air entry bilaterally. No crackles. No rales. Abdomen : Positive bowel sounds. Soft, nontender, nondistended. Extremities: No edema. No cyanosis. Neurologic: The patient is awake and alert. LABS: White blood cell count 12, hemoglobin 12, hematocrit 36, platelets 489, 000. Sodium 129, potassium 4.1, chloride 94, CO2 22, BUN 15, creatinine 0.5, glucose 215. ASSESSMENT AND PLAN: 1. Urinary tract infection secondary to Proteus. Continue on the current antibiotic regimen. 2. Psychosis. Continue on antipsychotic medication. 3. Cricopharyngeal achalasia. Aware. 4. Anxiety disorder. Continue on Xanax. 5. Chronic constipation. Improved. 6. Obesity. Aware. 7. Gastritis. Continue on omeprazole. 8. Disposition. [employer] is working on inpatient geropsychiatric placement for the patient. cc: Carola Diaz MD MTDD
[2018-04-18] MEDS: SINGULAIR PO SCH (21:33)
[2018-04-18] MEDS: TOVIAZ PO SCH (21:33)
[2018-04-18] MEDS: LOXITANE PO SCH (21:33)
[2018-04-18] MEDS: DESYREL PO SCH (21:33)
[2018-04-18] MEDS: IMIPRAMINE HCL PO SCH (21:33)
[2018-04-19] MEDS: NS 1,000 ML IV SCH ×2 (03:19→16:27)
[2018-04-19] MEDS: ZOSYN 3.375 GM in NS 50 ML IV SCH ×4 (03:23→21:51)
[2018-04-19] MEDS: SYNTHROID PO SCH (06:13)
[2018-04-19] MEDS: PRILOSEC PO SCH (06:13)
[2018-04-19] MEDS: LOVENOX SUBQ SCH (06:13)
[2018-04-19] MEDS: HUMALOG SUBQ SCH ×4 (06:14→21:51)
[2018-04-19 07:20] LABS: BASO# 0.09 X1000 (0.0-0.2); EOS% 3.4 % (0.0-10.0); HEMATOCRIT 35.6 % (37.0-47.0); HEMOGLOBIN 11.7 g/dL (12.0-16.0); IMM GRAN# 0.03 X1000 (0.0-0.04); IMM GRAN% 0.3 % (0.0-0.5); LYMPH# 1.68 X1000 (1.2-3.4); LYMPH% 19.2 % (20.5-51.1); MCH 27.3 PG (27-31); MCHC 32.9 g/dL (33-37); MCV 83.2 FL (81-99); MONO# 1.17 X1000 (0.11-0.59); MONO% 13.4 % (1.7-9.3); MPV 9.9 FL (7.4-10.4); NEUT# 5.49 X1000 (1.4-6.5); NEUT% 62.7 % (42.2-75.2); PLT 474 X1000 (130-400); RBC 4.28 XMIL (4.2-5.4); RDW 14.2 % (11.5-14.5); WBC 8.76 X1000 (4.8-10.8)
[2018-04-19 07:28] LABS: AGAP 9; BUN 10 mg/dL (8-22); CALCIUM 9.3 mg/dL (8.8-10.2); CHLORIDE 101 mmol/L (98-107); COSMO 271; CREATININE 0.5 mg/dL (0.5-0.9); ESTIMATED GFR > 60; GLUCOSE 198 mg/dL (70-104); POTASSIUM 4.1 mmol/L (3.5-5.1); SODIUM 133 mmol/L (136-145); TCO2 23 mmol/L (25-35)
--- NOTE | 2018-04-19 08:07 | Diag Imaging Result Doc PS360 ---
EXAM: CHEST-PORTABLE INDICATION: dyspnea TECHNIQUE: One view COMPARISON: 04/13/2018 FINDINGS: There is trace linear scarring versus subsegmental atelectasis in the left mid to lower lung zone. Lungs are grossly clear, otherwise. There is no discrete pleural fluid collection or pneumothorax. The cardiomediastinal silhouette and central vasculature are grossly unremarkable. IMPRESSION: Essentially stable chest with no definite acute pathology. Electronically signed by Altaf Bennett 04/19/2018 8:05 AM
[2018-04-19] MEDS: AMITIZA PO SCH ×2 (08:08→21:44)
[2018-04-19] MEDS: COREG PO SCH ×2 (08:09→21:44)
[2018-04-19] MEDS: CLARITIN PO SCH (08:09)
[2018-04-19] MEDS: ISOPTIN SR PO SCH ×2 (08:09→21:43)
[2018-04-19] MEDS: MYRBETRIQ E.R. PO SCH (08:09)
--- NOTE | 2018-04-19 12:52 | PROGRESS NOTE ---
DATE: 04/19/2018 SUBJECTIVE: The patient is awake, but still is not making sense. OBJECTIVE: Vital Signs: Temperature 97.9 degrees, blood pressure 145/63, heart rate 75, respirations 18, O2 saturation 97% on room air. General: This is an elderly female lying in bed in no acute distress. Heart: S1, S2 normal. Regular rate and rhythm. Lungs: Equal air entry bilaterally. No crackles. No rales. Abdomen: Positive bowel sounds. Soft, nontender, nondistended. Extremities: No edema, no cyanosis. Neurologic: The patient is alert and oriented x1. She is able to move all 4 extremities. LABS: Sodium 133, potassium 4.1, chloride 101, CO2 23. Hemoglobin 11, hematocrit 35, platelets 474. BUN 10, creatinine 0.5, glucose 198. ASSESSMENT AND PLAN: 1. Urinary tract infection secondary to Proteus. Continue with antibiotic therapy. 2. Psychosis. Will await an assessment from [facility]. 3. Hypopharyngeal achalasia. Aware. 4. Anxiety disorder. Continue on Xanax. 5. Obesity. Aware. 6. Gastritis. Continue on omeprazole. 7. Disposition: The patient will need inpatient psychiatric care to adjust her antipsychotics. cc: Carola Diaz MD
[2018-04-19] MEDS: MEVACOR PO SCH (17:25)
[2018-04-19] MEDS: TOVIAZ PO SCH (21:44)
[2018-04-19] MEDS: SINGULAIR PO SCH (21:44)
[2018-04-19] MEDS: DESYREL PO SCH (21:44)
[2018-04-19] MEDS: LOXITANE PO SCH (21:44)
[2018-04-19] MEDS: IMIPRAMINE HCL PO SCH (22:00)
[2018-04-20] MEDS: ZOSYN 3.375 GM in NS 50 ML IV SCH ×5 (03:50→20:59)
[2018-04-20] MEDS: HUMALOG SUBQ SCH ×4 (06:47→21:00)
[2018-04-20] MEDS: LOVENOX SUBQ SCH (06:49)
[2018-04-20] MEDS: SYNTHROID PO SCH (06:49)
[2018-04-20] MEDS: PRILOSEC PO SCH (06:49)
[2018-04-20 07:34] LABS: BASO% 1.2 % (0.0-0.8); EOS# 0.33 X1000 (0.0-0.7); EOS% 3.9 % (0.0-10.0); HEMOGLOBIN 12.4 g/dL (12.0-16.0); IMM GRAN# 0.07 X1000 (0.0-0.04); IMM GRAN% 0.8 % (0.0-0.5); LYMPH# 1.75 X1000 (1.2-3.4); LYMPH% 20.5 % (20.5-51.1); MCHC 33.5 g/dL (33-37); MCV 83.5 FL (81-99); MONO# 1.02 X1000 (0.11-0.59); MONO% 11.9 % (1.7-9.3); MPV 10.1 FL (7.4-10.4); NEUT# 5.28 X1000 (1.4-6.5); NEUT% 61.7 % (42.2-75.2); PLT 460 X1000 (130-400); RBC 4.43 XMIL (4.2-5.4); RDW 14.4 % (11.5-14.5); WBC 8.55 X1000 (4.8-10.8)
[2018-04-20 07:48] LABS: AGAP 12; BUN 8 mg/dL (8-22); CALCIUM 8.3 mg/dL (8.8-10.2); CHLORIDE 99 mmol/L (98-107); COSMO 273; CREATININE 0.6 mg/dL (0.5-0.9); ESTIMATED GFR > 60; GLUCOSE 213 mg/dL (70-104); POTASSIUM 3.8 mmol/L (3.5-5.1); SODIUM 134 mmol/L (136-145); TCO2 23 mmol/L (25-35)
[2018-04-20 07:55] LABS: EOS 4 % (1-10); LYMPHS 18 % (21-51); MONO 18 % (1-9); SEGS 60 % (42-75)
[2018-04-20] MEDS: NS 1,000 ML IV SCH ×2 (08:56→10:08)
[2018-04-20] MEDS: AMITIZA PO SCH ×2 (08:57→21:01)
[2018-04-20] MEDS: COREG PO SCH ×2 (08:57→21:01)
[2018-04-20] MEDS: MYRBETRIQ E.R. PO SCH (08:58)
[2018-04-20] MEDS: ISOPTIN SR PO SCH ×2 (08:58→21:01)
[2018-04-20] MEDS: CLARITIN PO SCH (08:58)
[2018-04-20] MEDS: MEVACOR PO SCH (16:17)
--- NOTE | 2018-04-20 20:01 | PROGRESS NOTE ---
DATE: 04/20/2018 SUBJECTIVE: The patient is resting comfortably in bed. She remains confused, follows commands occasionally. OBJECTIVE: Vital Signs: Temperature 97.8 degrees, blood pressure 112/95, heart rate 80, respirations 18, O2 saturation is 100% on room air, urine output 875. General: This is a chronically ill-appearing elderly female lying in bed in no acute distress. Heart: S1, S2 normal, regular rate and rhythm. Lungs: Equal air entry bilaterally. No crackles, no rales. Abdomen: Positive bowel sounds. Soft, nontender, nondistended. Extremities: No edema, no cyanosis, no calf tenderness. Neuro: The patient is alert and oriented to self , she is able to move all 4 extremities. LABS: Sodium 134, potassium 3.8, chloride 99, CO2 23, BUN 8, creatinine 0.6, glucose 213, calcium 8.3, white blood cell count 8.5, hemoglobin 12, hematocrit 37, platelets 460, 000. ASSESSMENT AND PLAN: 1. Urinary tract infection secondary to Proteus. Today is day #4 of treatment. Continue with antibiotic therapy. 2. Psychosis. The patient will need a reassessment from [facility] on Saturday to determine appropriateness for admission. The patient does need inpatient psychiatric care to adjust her antipsychotics. 3. Cricopharyngeal achalasia. Aware. 4. Anxiety disorder. Continue on Xanax. 5. Obesity. Aware. 6. Gastritis. Continue on omeprazole. 7. Hyponatremia. Slowly improving. Continue with gentle IV fluid hydration. 8. DM type 2. Continue on sliding scale insulin. 9. Disposition. The patient will need inpatient psychiatric care for further adjustment of her antipsychotics. cc: Carola Diaz MD [facility]
[2018-04-20] MEDS: LOXITANE PO SCH (21:01)
[2018-04-20] MEDS: TOVIAZ PO SCH (21:01)
[2018-04-20] MEDS: SINGULAIR PO SCH (21:01)
[2018-04-20] MEDS: IMIPRAMINE HCL PO SCH (21:01)
[2018-04-20] MEDS: DESYREL PO SCH (21:01)
[2018-04-21] MEDS: NS 1,000 ML IV SCH (01:52)
[2018-04-21] MEDS: ZOSYN 3.375 GM in NS 50 ML IV SCH ×2 (04:02→10:21)
[2018-04-21] MEDS: SYNTHROID PO SCH ×2 (05:46→06:01)
[2018-04-21] MEDS: PRILOSEC PO SCH ×2 (05:46→06:00)
[2018-04-21] MEDS: LOVENOX SUBQ SCH (05:46)
[2018-04-21] MEDS: HUMALOG SUBQ SCH ×4 (06:00→21:32)
[2018-04-21 06:48] LABS: EOS# 0.23 X1000 (0.0-0.7); EOS% 2.3 % (0.0-10.0); HEMOGLOBIN 12.7 g/dL (12.0-16.0); IMM GRAN# 0.03 X1000 (0.0-0.04); IMM GRAN% 0.3 % (0.0-0.5); LYMPH# 2.24 X1000 (1.2-3.4); MCH 27.9 PG (27-31); MCHC 33.4 g/dL (33-37); MCV 83.5 FL (81-99); MONO# 1.06 X1000 (0.11-0.59); MONO% 10.4 % (1.7-9.3); MPV 9.6 FL (7.4-10.4); NEUT# 6.51 X1000 (1.4-6.5); PLT 500 X1000 (130-400); RBC 4.55 XMIL (4.2-5.4); RDW 14.4 % (11.5-14.5); WBC 10.17 X1000 (4.8-10.8)
--- NOTE | 2018-04-21 07:17 | Diag Imaging Result Doc PS360 ---
EXAM: CHEST-PORTABLE 04/21/2018 HISTORY: dyspnea TECHNIQUE: AP portable at 0534 COMMENT: The inspiration is suboptimal. There is increased interstitial markings compared to the previous study of 04/19/2018, which may be related to the degree of inspiration. There is a platelike opacity in the lateral left chest which was also present on 09/18/2016 and is presumably fibrotic. IMPRESSION: Questionable interstitial pulmonary edema. Electronically signed by Gregory Desai 04/21/2018 7:15 AM
[2018-04-21 07:33] LABS: AGAP 12; BUN 7 mg/dL (8-22); CALCIUM 9.3 mg/dL (8.8-10.2); CHLORIDE 102 mmol/L (98-107); COSMO 281; CREATININE 0.6 mg/dL (0.5-0.9); ESTIMATED GFR > 60; GLUCOSE 229 mg/dL (70-104); POTASSIUM 4.3 mmol/L (3.5-5.1); SODIUM 138 mmol/L (136-145); TCO2 24 mmol/L (25-35)
[2018-04-21] MEDS: ISOPTIN SR PO SCH ×2 (08:12→21:43)
[2018-04-21] MEDS: MYRBETRIQ E.R. PO SCH (08:12)
[2018-04-21] MEDS: AMITIZA PO SCH ×2 (08:12→21:33)
[2018-04-21] MEDS: CLARITIN PO SCH (08:12)
[2018-04-21] MEDS: COREG PO SCH ×2 (08:12→21:33)
--- NOTE | 2018-04-21 15:16 | PROGRESS NOTE ---
DATE: 04/21/2018 SUBJECTIVE: Patient reports feeling fine. Denies at this point, any pain when she pees. She follows commands occasionally and she is not complaining of any pain at this time. OBJECTIVE: Vital Signs: Temperature 99.3 degrees, heart rate 82, respiratory 14, blood pressure 140/61. O2 saturation 98% on room air General: This is a 72-year-old female lying in bed, in no acute distress. Cardiovascular: S1, S2 heard. No murmurs, gallops , or rubs. Regular rate and rhythm. Respiratory: Clear bilaterally to auscultation. No work of breathing or using accessory muscles. Abdomen: Soft, nontender to palpation. Bowel sounds present. No organomegaly. Extremities: No clubbing, cyanosis, or edema. Peripheral pulses present in both legs. Neurological: Patient is alert and oriented x3. Moves 4 extremities. LABORATORY DATA: CBC and BMP are unremarkable except elevation of blood sugars 229. ASSESSMENT/PLAN: 1. Urinary tract infection secondary to Proteus. Patient has received 4 days of Zosyn. Because the urine culture showed sensitivity to cefazolin, we will switch to oral cephalexin and she will need 10 days of medication by mouth. 2. Cricopharyngeal achalasia aware. No problems at this time. 3. Anxiety disorder. We will continue with Xanax. 4. Hyponatremia resolved. 5. Diabetes mellitus type 2. We are going to add Lantus to his current treatment. 6. Psychosis. Patient needs a reassessment from [facility] [place]. They have evaluated this patient in the last Saturday and they refuse to take her because she was on IV antibiotics even though attending physician mentioned those can be switched to oral medications at any time. Then they mentioned patient needs to get physical therapy. Today I changed antibiotics to PO and I clearly document this patient is medically stable and I ordered another psych evaluation. Again they requested to have a guardian for this patient in order to take her, requisite that was not mentioned three days ago in her initial evaluation. It appears clearly to me that what they are doing is delaying psychiatric care by just making up excuses one after another. Just to make it clear she is medically stable and ready to go to [facility] whenever they decide to take her. cc: MD PERCY Crook
[2018-04-21] MEDS ORDERED: INSULIN PEN NEEDLES ONE (16:23)
[2018-04-21] MEDS: MEVACOR PO SCH (16:41)
[2018-04-21] MEDS: BASAGLAR SUBQ SCH (16:43)
[2018-04-21] MEDS: KEFLEX PO SCH ×2 (16:47→21:32)
[2018-04-21] MEDS: SINGULAIR PO SCH (21:32)
[2018-04-21] MEDS: LOXITANE PO SCH (21:32)
[2018-04-21] MEDS: TOVIAZ PO SCH (21:33)
[2018-04-21] MEDS: DESYREL PO SCH (21:33)
[2018-04-21] MEDS: IMIPRAMINE HCL PO SCH (21:44)
[2018-04-22] MEDS: SYNTHROID PO SCH ×2 (05:25→09:33)
[2018-04-22] MEDS: KEFLEX PO SCH ×3 (05:25→23:19)
[2018-04-22] MEDS: LOVENOX SUBQ SCH (05:26)
[2018-04-22] MEDS: ISOPTIN SR PO SCH ×2 (09:31→23:19)
[2018-04-22] MEDS: CLARITIN PO SCH (09:32)
[2018-04-22] MEDS: AMITIZA PO SCH ×2 (09:32→23:18)
[2018-04-22] MEDS: COREG PO SCH ×2 (09:32→23:19)
[2018-04-22] MEDS: BASAGLAR SUBQ SCH (09:32)
[2018-04-22] MEDS: PRILOSEC PO SCH (09:32)
[2018-04-22] MEDS: MYRBETRIQ E.R. PO SCH (09:32)
[2018-04-22] MEDS ORDERED: BASAGLAR SUBQ ONE (13:16)
--- NOTE | 2018-04-22 13:51 | PROGRESS NOTE ---
DATE: 04/22/2018 SUBJECTIVE: Patient reports feeling fine. Sometimes, she is more confused. No other complaints noted. OBJECTIVE: Vital Signs: Temperature 97.7 degrees, heart rate 90, respiratory rate 18, blood pressure 195/97, O2 saturation 99% on room air. General Examination: This is a 72-year-old female, lying in bed in no acute distress. HEENT: Head is normocephalic, atraumatic. Neck: No JVD noted. No carotid bruit. Cardiovascular exam: S1, S2 heard. No murmurs, gallops, or rubs. Regular rate and rhythm. Respiratory exam: Clear bilaterally to auscultation. No work of breathing or using accessory muscles. Abdomen: Soft, nontender to palpation. Bowel sounds present. No organomegaly. Extremities: No clubbing, cyanosis, or edema. Peripheral pulses present in both legs. Neurological exam: Patient is alert and oriented x3. Moves 4 extremities. LABORATORY DATA: Reviewed. ASSESSMENT AND PLAN: 1. Urinary tract infection secondary to Proteus. The patient is on oral cephalexin 500 mg oral three times per day. She needs to continue this medication for 9 more days from today. 2. Cricopharyngeal achalasia. Aware. No problems at this time reported. 3. Diabetes mellitus type 2. Lantus has been added to his current treatment since then. Her blood sugar has been a little bit better controlled. I think we have enough room to increase the Lantus from 15 to 20 and see how she does. 4. Hypertension. Blood pressure is elevated today, so plan to increase the doses of Coreg from 6.25 to 12.5 mg oral twice daily and see how she does. 5. Psychosis. Please refer to my notes from yesterday. Still awaiting evaluation from [facility]. I do not know exactly when this patient will be taken to there, but she is medically stable. cc: Hiram Schofield MD
[2018-04-22] MEDS: HUMALOG SUBQ SCH ×5 (13:56→23:14)
[2018-04-22] MEDS: MEVACOR PO SCH (18:18)
[2018-04-22] MEDS: SINGULAIR PO SCH (23:17)
[2018-04-22] MEDS: DESYREL PO SCH (23:18)
[2018-04-22] MEDS: TOVIAZ PO SCH (23:18)
[2018-04-22] MEDS: IMIPRAMINE HCL PO SCH (23:18)
[2018-04-22] MEDS: LOXITANE PO SCH (23:18)
[2018-04-23] MEDS: HUMALOG SUBQ SCH ×5 (06:08→21:30)
[2018-04-23] MEDS: LOVENOX SUBQ SCH (06:09)
[2018-04-23] MEDS: SYNTHROID PO SCH (06:09)
[2018-04-23] MEDS: KEFLEX PO SCH ×2 (06:09→16:47)
[2018-04-23] MEDS: PRILOSEC PO SCH (06:09)
[2018-04-23] MEDS: CLARITIN PO SCH (08:50)
[2018-04-23] MEDS: COREG PO SCH ×2 (08:50→21:30)
[2018-04-23] MEDS: AMITIZA PO SCH ×2 (08:50→22:43)
[2018-04-23] MEDS: BASAGLAR SUBQ SCH (08:53)
[2018-04-23] MEDS: MYRBETRIQ E.R. PO SCH (08:54)
[2018-04-23] MEDS: ISOPTIN SR PO SCH ×2 (08:54→21:30)
[2018-04-23] MEDS: MEVACOR PO SCH (16:48)
[2018-04-23] MEDS: DESYREL PO SCH (22:41)
[2018-04-23] MEDS: SINGULAIR PO SCH (22:41)
[2018-04-23] MEDS: LOXITANE PO SCH (22:43)
[2018-04-23] MEDS: TOVIAZ PO SCH (22:43)
[2018-04-23] MEDS: IMIPRAMINE HCL PO SCH (22:56)
[2018-04-24] MEDS: KEFLEX PO SCH ×4 (00:33→23:00)
--- NOTE | 2018-04-24 04:12 | PROGRESS NOTE ---
DATE: 04/23/2018 CHIEF COMPLAINT: The patient seen. She has no new complaints. Denies any chest pain or palpitations. PHYSICAL EXAMINATION: Vital Signs: Temperature is 97.9 degrees, pulse 89, respiratory rate 20, BP 178/80. General: The patient is awake, alert, currently in no distress. Overall she is feeling better. HEENT: Normocephalic. Neck: Supple. CARDIOVASCULAR: Regular rate. No murmurs. Chest: Clear and nonlabored. Abdomen: Soft and nondistended. Extremities: Moves all extremities. Neurologic: The patient is alert and oriented. ASSESSMENT: 1. Urinary tract infection. The patient currently is on Keflex. We will continue this 3 times a day for the next 8 days. 2. Cricopharyngeal achalasia. 3. Diabetes type 2, currently is on Lantus. 4. Hypertension. 5. Psychosis. PLAN: The patient is awaiting evaluation by [facility] and will transfer when bed is available. cc: Alejandro Granados MD
[2018-04-24] MEDS: PRILOSEC PO SCH (06:06)
[2018-04-24] MEDS: SYNTHROID PO SCH (06:06)
[2018-04-24] MEDS: LOVENOX SUBQ SCH (06:07)
[2018-04-24] MEDS: HUMALOG SUBQ SCH ×4 (06:12→22:58)
[2018-04-24] MEDS: CLARITIN PO SCH (09:09)
[2018-04-24] MEDS: AMITIZA PO SCH ×2 (09:09→23:00)
[2018-04-24] MEDS: MYRBETRIQ E.R. PO SCH (09:09)
[2018-04-24] MEDS: COREG PO SCH ×2 (09:09→23:00)
[2018-04-24] MEDS: ISOPTIN SR PO SCH ×2 (09:09→23:00)
[2018-04-24] MEDS: BASAGLAR SUBQ SCH (09:10)
[2018-04-24] MEDS: MEVACOR PO SCH (16:55)
--- NOTE | 2018-04-24 20:20 | PROGRESS NOTE ---
DATE: 04/24/2018 SUBJECTIVE: Patient reports feeling fine. No other complaints noted. OBJECTIVE: Vital Signs: Temperature 98.3, heart rate 69, respiratory rate 18, blood pressure 139/70, O2 sat 97% on room air. General: This is a 72-year-old female lying in bed in no acute distress. Cardiovascular: S1, S2 heard. No murmurs, gallops or rubs. Regular rate and rhythm. Respiratory: Clear bilaterally to auscultation. No work of breathing or using accessory muscles. Abdomen: Soft, nontender to palpation. Bowel sounds present. No organomegaly. Extremities: No clubbing, cyanosis or edema. Peripheral pulses present in both legs. Neurologic: Patient is alert and oriented x3. Moves 4 extremities. LABORATORY DATA: Reviewed. ASSESSMENT AND PLAN: 1. Urinary tract infection secondary to Proteus. Patient is on cephalexin 5 mg p.o. 2 times per day. Needs to complete 10 days total of antibiotics. 2. Diabetes mellitus type 2. Lantus has been added the day before yesterday to her current treatment. Blood sugars are better controlled. We are going to adjust it and will go from there. 3. Hypertension. Blood pressure is better controlled, but I think we need to increase the doses of Coreg to 25 mg p.o. b.i.d. and see how she does. 4. Psychosis. At this point we are looking for [facility]hip for this patient [facility], but it is also confusing that we are also trying to send this patient to a different psychiatric hospitals and I do not understand why [facility] is not able to provide the care that they are supposed to and other psychiatric hospitals can. cc: Hiram Schofield MD [facility]
[2018-04-24] MEDS: SINGULAIR PO SCH (23:00)
[2018-04-24] MEDS: DESYREL PO SCH (23:00)
[2018-04-24] MEDS: LOXITANE PO SCH (23:00)
[2018-04-24] MEDS: TOVIAZ PO SCH (23:00)
[2018-04-24] MEDS: IMIPRAMINE HCL PO SCH (23:11)
[2018-04-25] MEDS: KEFLEX PO SCH ×3 (06:06→23:14)
[2018-04-25] MEDS: LOVENOX SUBQ SCH (06:07)
[2018-04-25] MEDS: PRILOSEC PO SCH (06:07)
[2018-04-25] MEDS: SYNTHROID PO SCH (06:07)
[2018-04-25] MEDS: HUMALOG SUBQ SCH ×4 (06:09→23:28)
[2018-04-25] MEDS: COREG PO SCH ×2 (08:28→23:14)
[2018-04-25] MEDS: AMITIZA PO SCH ×2 (08:28→23:28)
[2018-04-25] MEDS: BASAGLAR SUBQ SCH (08:28)
[2018-04-25] MEDS: MYRBETRIQ E.R. PO SCH (08:28)
[2018-04-25] MEDS: ISOPTIN SR PO SCH ×2 (08:28→23:28)
[2018-04-25] MEDS: CLARITIN PO SCH (08:28)
[2018-04-25] MEDS: TYLENOL PO PRN (12:39)
--- NOTE | 2018-04-25 15:15 | PROGRESS NOTE ---
DATE: 04/25/2018 SUBJECTIVE: Patient reports feeling fine, but it is very difficult to maintain a conversation with her because her speech is tangential and circumstantial. When I am asking her a question, she shows some derailment and sometimes she uses words that I am not able to understand, looks like neologisms. As per nursing staff, she has been complaining of pain, but she is not able to point out where this pain is coming from. She was saying that she has pain along the neck. OBJECTIVE: Vital Signs: Temperature 98.1 degrees, heart rate 75, respiratory rate 18, blood pressure 147/74, O2 saturation 100% on room air. General examination: This is a chronically ill- looking, 72-year-old, female lying in bed, in no acute distress. HEENT: Head is normocephalic, atraumatic. Anicteric sclerae. [place] conjunctivae. Mucous membranes moist. Neck: No JVD noted. No carotid bruits. No lymphadenopathy. No thyromegaly. Cardiovascular: S1 and S2 heard. No murmurs, gallops, or rubs. Regular rate and rhythm. Respiratory : Clear bilaterally to auscultation. No work of breathing or using accessory muscles. Abdomen: Soft. Nontender to palpation. Bowel sounds present. No organomegaly. Extremities: No clubbing, cyanosis, or edema. Peripheral pulses present in both legs. Neurological: Patient alert and oriented x3. Moves 4 extremities. LABORATORY DATA: None. ASSESSMENT AND PLAN: 1. Urinary tract infection secondary to Proteus. The patient is going to continue with cephalexin 500 mg p.o. 3 times per day and needs to complete 10 days total of antibiotics. 2. Diabetes mellitus type 2. Since she is using Lantus, blood sugars are much better controlled. Will continue with the same management. 3. Hypertension. Currently, she is taking Coreg 25 mg p.o. b.i.d. and since then blood pressure is much better controlled. Will continue with the same medication. 4. Psychosis. On talking with the cousin who is at bedside, she mentions that this patient has been having psychiatric issues since she was in college. She was admitted to a hospital for psychiatric issues, but she does not know exactly the diagnosis. Upon my evaluation as a nonpsychiatric doctor, I can tell that every time I goes to see her, she exhibits tangential speech. When I ask questions, she answers with something completely different to what she was asked, and also I can see some circumstantial speech whenever she wants to answer my question about, for example, pain or about any other thing that is bothering her, but she does not go to the point and she does not answer. Sometimes she shows some apathy and flat affect, and lack of energy. Also, I can see that her attention process is not good, when talking to her she quickly gets disconnected from the point that we were talking. At admission, she was mentioning that she was told, but she was not able to tell me by who, that she is fine and she does not have any medical problems. I think this patient is very delusional. I think this patient sometimes is paranoid because she is afraid that we will harm her by providing oral medication. Also, we have noticed changes in mood and she also is anxious. I have not seen any signs of catatonia. We know that schizophrenia is associated with diabetes and hypertension but all those we have treated properly from the medical standpoint. Her symptoms are basically the same, and as we mentioned before, those symptoms have really being going on for a while since this patient was a teenager. I do not think those symptoms are related to medication. I do think this patient needs to be evaluated by a psychiatrist. She is medically stable. Will continue to work with the family to get a psychiatry unit for her. cc: Hiram Schofield MD MTDD
--- NOTE | 2018-04-25 16:14 | Diag Imaging Result Doc PS360 ---
EXAM: KNEE 1-2 VIEWS-RIGHT 04/25/2018 HISTORY: R knee pain TECHNIQUE: Right knee AP and lateral portable COMMENT: There is a total knee arthroplasty. There are no previous studies. There is apparent soft tissue swelling and/or effusion in the suprapatellar bursa region. No evidence of erosion or loosening of the prosthesis is present. IMPRESSION: Effusion. Electronically signed by Gregory Desai 04/25/2018 4:12 PM
[2018-04-25] MEDS: MEVACOR PO SCH (17:09)
[2018-04-25] MEDS ORDERED: NORCO-5 PO ONE ×2 (18:21→20:09)
[2018-04-25 21:25] LABS: BODY FLUID SOURCE SYNOVIAL FLUID; WBC BF 11328 /cumm
[2018-04-25 21:27] LABS: MONOS 3 %; POLYS 97 %
[2018-04-25] MEDS: SINGULAIR PO SCH (23:13)
[2018-04-25] MEDS: XANAX PO PRN (23:13)
[2018-04-25] MEDS: DESYREL PO SCH (23:14)
[2018-04-25] MEDS: IMIPRAMINE HCL PO SCH (23:14)
[2018-04-25] MEDS: LOXITANE PO SCH (23:28)
[2018-04-25] MEDS: TOVIAZ PO SCH (23:36)
--- NOTE | 2018-04-26 05:27 | CONSULTATION ---
DATE OF CONSULTATION: 04/25/2018 CLINICAL HISTORY: The patient is a pleasant 72-year-old female who was admitted to the hospital on 04/14/2018 with altered mental status. [facility]-day history of altered mental status and nonspeaking. She has undergone evaluation for this and was noted to have evidence of psychosis. She is confused this evening. The patient reports feels some pain in the right knee over the last day or so. Orthopedic consultation is requested. PAST MEDICAL HISTORY: Reviewed and contained within the chart. The patient is approximately 10 years status post right total knee arthroplasty per Dr. Ramirez. PAST SURGICAL HISTORY: Hysterectomy, bilateral total knee arthroplasty, right mastectomy. PHYSICAL EXAMINATION: The patient is confused and non-cooperative with the exam. The patient's right knee she has evidence of an old area of ecchymosis in the infrapatellar region. There is some fullness about the knee, there is some mild increased warmth, no evidence of erythema, as well as a healed incisional scar. Again the patient is apprehensive with the exam, and it is difficult to obtain an adequate examination secondary to the patient's lack of cooperation. Her calf is soft, she is able to actively dorsiflex. She movement to her foot. She has discomfort with movement of the right knee. X-ray of the right knee revealed prosthesis in position and evidence of some soft tissue swelling. IMPRESSION: Right knee effusion status post total knee arthroplasty. PLAN: At this point, given the patient's clinical findings I would recommend proceeding with an aspiration to rule out infection. Approximately 15 mL of slightly turbid serous fluid was aspirated. We will obtain gram stain, a culture and sensitivity, as well as cell count. We will await the results. The patient tolerated the procedure well. cc: Kevon John MD
[2018-04-26] MEDS: PRILOSEC PO SCH (05:36)
[2018-04-26] MEDS: KEFLEX PO SCH ×2 (05:37→12:35)
[2018-04-26] MEDS: LOVENOX SUBQ SCH (05:37)
[2018-04-26] MEDS: SYNTHROID PO SCH (05:37)
[2018-04-26] MEDS: HUMALOG SUBQ SCH ×4 (06:35→22:06)
[2018-04-26] MEDS: MYRBETRIQ E.R. PO SCH (10:22)
[2018-04-26] MEDS: COREG PO SCH ×2 (10:22→21:58)
[2018-04-26] MEDS: CLARITIN PO SCH (10:22)
[2018-04-26] MEDS: AMITIZA PO SCH ×2 (10:22→21:58)
[2018-04-26] MEDS: ISOPTIN SR PO SCH ×2 (10:23→21:58)
[2018-04-26] MEDS: BASAGLAR SUBQ SCH (10:23)
[2018-04-26] MEDS: XANAX PO PRN (12:35)
[2018-04-26] MEDS: TYLENOL PO PRN (12:35)
--- NOTE | 2018-04-26 12:46 | PROGRESS NOTE ---
DATE: 04/26/2018 SUBJECTIVE: The patient is a 72-year-old female with significant confusion undergoing evaluation for psychosis. She underwent aspiration last evening and was noted to have some right knee pain and some swelling. She is status post total knee arthroplasty approximately [address] Ramirez. OBJECTIVE: On physical exam the patient's right lower extremity wound is well-healed. There is no evidence of erythema. Calf is soft. LABORATORY DATA: Her gram stain was negative. Cultures are pending. WBC was 11,328. IMPRESSION: Right knee pain with effusion, status-post total knee arthroplasty. PLAN: At this point, we will await the culture results. The initial results with the gram stain and cell count are encouraging with regards to infection. We will await the culture results however and we will treat her accordingly. cc: Kevon John MD
[2018-04-26] MEDS: TORADOL IV SCH ×2 (14:33→21:39)
[2018-04-26] MEDS: OFIRMEV 1000 MG/ISOTONIC SOLN 1,000 MG/100 ML BOTTLE IV SCH ×2 (14:33→21:39)
[2018-04-26] MEDS: ZOSYN 3.375 GM in NS 50 ML IV SCH ×2 (14:33→21:55)
--- NOTE | 2018-04-26 16:59 | PROGRESS NOTE ---
DATE: 04/26/2018 SUBJECTIVE: The patient continues to complain of right knee pain. Denies any fever or chills. Speech continues to be tangential and circumstantial. She does not answer questions appropriately. OBJECTIVE: Vital signs: Temperature 97.5, heart rate 113, respiratory rate 10 and blood pressure is 139/59 with an O2 saturation of 100% on room air. General: This is a 57-[id number]-pab- female lying in bed in no acute distress. Cardiovascular: S1, S2. No murmurs, rubs or gallops. Regular rate and rhythm. Respiratory: Clear bilaterally to auscultation. No work of breathing or use of accessory muscles. Abdomen: Soft and nontender to palpation. Bowel sounds are present. No organomegaly. Extremities: Right knee is a little swollen and erythematous. Neurological: The patient is alert and oriented x3. Moving all extremities. LABORATORY DATA: Reviewed. ASSESSMENT AND PLAN: 1. Urinary tract infection secondary to proteus. The patient has been on cephalexin recently, but because we are suspecting septic arthritis, we have switched her to Zosyn. 2. Possible septic arthritis. Orthopedics has been consulted, and they did arthrocentesis. The result of the culture is pending. At this point, I would prefer to restart Zosyn. That will treat this possible infection and also will treat the urinary tract infection. 3. Psychosis as mentioned before in our note. She has a long history of schizophrenia not specified. We will continue to monitor here. cc: Hiram Schofield MD
[2018-04-26] MEDS: MEVACOR PO SCH (17:22)
[2018-04-26] MEDS: LOXITANE PO SCH (21:57)
[2018-04-26] MEDS: SINGULAIR PO SCH (21:58)
[2018-04-26] MEDS: DESYREL PO SCH (21:58)
[2018-04-26] MEDS: TOVIAZ PO SCH (21:59)
[2018-04-26] MEDS: IMIPRAMINE HCL PO SCH (22:00)
[2018-04-27] MEDS: ZOSYN 3.375 GM in NS 50 ML IV SCH ×3 (03:50→15:40)
[2018-04-27] MEDS: OFIRMEV 1000 MG/ISOTONIC SOLN 1,000 MG/100 ML BOTTLE IV SCH ×4 (03:50→22:34)
[2018-04-27] MEDS: TORADOL IV SCH ×4 (03:50→22:34)
[2018-04-27] MEDS: SYNTHROID PO SCH (05:59)
[2018-04-27] MEDS: LOVENOX SUBQ SCH (05:59)
[2018-04-27] MEDS: PRILOSEC PO SCH (06:00)
[2018-04-27] MEDS: HUMALOG SUBQ SCH ×4 (06:00→22:35)
[2018-04-27] MEDS: ISOPTIN SR PO SCH ×2 (08:25→22:34)
[2018-04-27] MEDS: MYRBETRIQ E.R. PO SCH (08:25)
[2018-04-27] MEDS: BASAGLAR SUBQ SCH (08:26)
[2018-04-27] MEDS: CLARITIN PO SCH (08:26)
[2018-04-27] MEDS: COREG PO SCH ×2 (08:26→22:33)
[2018-04-27] MEDS: AMITIZA PO SCH ×2 (08:26→22:33)
--- NOTE | 2018-04-27 08:36 | PROGRESS NOTE ---
DATE: 04/27/2018 SUBJECTIVE: The patient is a 72-year-old female who continues with significant confusion and underlying psychosis. OBJECTIVE: Her right lower extremity, there is no erythema, no significant swelling, difficult to assess physical examination secondary to her psychosis. LABORATORY: Her Gram stain and cultures were negative. IMPRESSION: Right knee pain status post total knee arthroplasty. PLAN: At this point, unsure of the patient's etiology with regards to her pain; however, have ruled out infection. We will obtain x-rays of her femur full length to rule out occult fracture proximally and if she continues with discomfort, consider bone scan for further evaluation. cc: Kevon John MD
--- NOTE | 2018-04-27 10:06 | Diag Imaging Result Doc PS360 ---
EXAM: FEMUR MIN 2 VIEWS RIGHT 04/27/2018 HISTORY: pain TECHNIQUE: Right femur four views COMMENT: There is a total knee prosthesis. There is no evidence of fracture dislocation periosteal reaction or erosion. There is some heterotopic bone formation present in the right buttock. IMPRESSION: No evidence of acute bony disease. Electronically signed by Gregory Desai 04/27/2018 10:03 AM
[2018-04-27] MEDS: XANAX PO PRN (17:18)
[2018-04-27] MEDS: MEVACOR PO SCH (17:19)
--- NOTE | 2018-04-27 18:12 | PROGRESS NOTE ---
DATE: 04/27/2018 SUBJECTIVE: Patient continues to scream but we are not sure that she is complaining of right knee pain, she actually continued to have tangential and circumstantial speech, she does not answer pretty much questions that we ask. OBJECTIVE: Vitals: Temperature 97.7 degrees, heart rate 75, respiratory 15, blood pressure 157/95, O2 saturation 100% on room air. General: This is a 72-year-old female lying in bed in no acute distress . Cardiovascular: S1, S2 heard. No murmurs, gallops, or rubs. Regular rate and rhythm. Respiratory: Clear bilaterally to auscultation. No work of breathing or using accessory muscles. Abdomen: Soft, nontender to palpation. Bowel sounds present. No organomegaly. Extremities: Right knee is less swollen, less erythema. Neurologic: Patient alert, oriented x3, moves 4 extremities. LABORATORY DATA: Reviewed. ASSESSMENT AND PLAN: 1. Urinary tract infection secondary to Proteus. Considering that we have ruled out any septic arthritis in this patient we decided to put this patient back on cephalexin and stop Zosyn. Actually she will need 6 more days of cephalexin counting the 1st day as today. 2. Septic arthritis. That condition has been ruled out. Orthopedics has performed arthrocentesis and synovial fluid was sent for culture and everything was negative. Recommendation is if she continues to complain of bone pain probably a bone scan will be required but will continue to monitor this patient. 3. Psychosis, as we mentioned before she has long history of schizophrenia but the type has not been specify, will continue to monitor this patient closely. 4. Disposition. We continue to look for a psychiatry facility for this patient to send her. cc: Hiram Schofield MD
[2018-04-27] MEDS: LOXITANE PO SCH (22:33)
[2018-04-27] MEDS: TOVIAZ PO SCH (22:33)
[2018-04-27] MEDS: DESYREL PO SCH (22:33)
[2018-04-27] MEDS: SINGULAIR PO SCH (22:33)
[2018-04-27] MEDS: KEFLEX PO SCH (22:47)
[2018-04-28] MEDS: IMIPRAMINE HCL PO SCH ×2 (02:07→23:12)
[2018-04-28] MEDS: OFIRMEV 1000 MG/ISOTONIC SOLN 1,000 MG/100 ML BOTTLE IV SCH ×4 (04:05→23:10)
[2018-04-28] MEDS: TORADOL IV SCH ×4 (04:05→23:10)
[2018-04-28] MEDS: KEFLEX PO SCH ×3 (05:49→23:11)
[2018-04-28] MEDS: LOVENOX SUBQ SCH (05:50)
[2018-04-28] MEDS: PRILOSEC PO SCH (05:51)
[2018-04-28] MEDS: SYNTHROID PO SCH (05:51)
[2018-04-28] MEDS: HUMALOG SUBQ SCH ×5 (06:04→23:19)
--- NOTE | 2018-04-28 06:50 | PROGRESS NOTE ---
DATE: 04/28/2018 SUBJECTIVE: The patient is a pleasant 72-year-old female who continues with underlying psychosis and significant effusion. Right lower extremity has well healed incisional scar. No increased warmth. No erythema. No swelling. She does have some withdraws with palpation, however the patient does have some similar reaction to the left lower extremity. She is however bending and moving her left leg. Her lab cultures were negative. AP and lateral x-ray of the femur revealed no obvious occult fracture or acute pathology. IMPRESSION: Right knee pain status post total knee arthroplasty. PLAN: At this point, patient is very difficult to determine the source of her discomfort secondary due to her significant confusion and underlying psychosis. Would recommend an attempt at mobilization. If patient is unable or continues with her current symptoms, would recommend a bone scan to rule occult pathology. All questions were answered. cc: Kevon John MD
[2018-04-28] MEDS ORDERED: BLISTEX MEDICATED BERRY LIP BALM TOP PRN (06:52)
[2018-04-28 07:13] LABS: BASO% 1.2 % (0.0-0.8); EOS# 0.35 X1000 (0.0-0.7); EOS% 4.2 % (0.0-10.0); HEMATOCRIT 36.3 % (37.0-47.0); HEMOGLOBIN 11.7 g/dL (12.0-16.0); IMM GRAN# 0.02 X1000 (0.0-0.04); IMM GRAN% 0.2 % (0.0-0.5); LYMPH# 1.88 X1000 (1.2-3.4); LYMPH% 22.8 % (20.5-51.1); MCH 27.2 PG (27-31); MCHC 32.2 g/dL (33-37); MCV 84.4 FL (81-99); MONO# 0.78 X1000 (0.11-0.59); MONO% 9.5 % (1.7-9.3); MPV 10.2 FL (7.4-10.4); NEUT# 5.12 X1000 (1.4-6.5); NEUT% 62.1 % (42.2-75.2); PLT 577 X1000 (130-400); RDW 14.5 % (11.5-14.5); WBC 8.25 X1000 (4.8-10.8)
[2018-04-28 07:29] LABS: AGAP 12; BUN 21 mg/dL (8-22); CALCIUM 9.6 mg/dL (8.8-10.2); CHLORIDE 100 mmol/L (98-107); COSMO 277; CREATININE 0.6 mg/dL (0.5-0.9); ESTIMATED GFR > 60; GLUCOSE 142 mg/dL (70-104); POTASSIUM 4.9 mmol/L (3.5-5.1); SODIUM 136 mmol/L (136-145); TCO2 24 mmol/L (25-35)
[2018-04-28] MEDS: AMITIZA PO SCH ×2 (10:02→23:11)
[2018-04-28] MEDS: CLARITIN PO SCH (10:02)
[2018-04-28] MEDS: COREG PO SCH ×2 (10:03→23:11)
[2018-04-28] MEDS: ISOPTIN SR PO SCH ×2 (10:03→23:10)
[2018-04-28] MEDS: MYRBETRIQ E.R. PO SCH (10:03)
[2018-04-28] MEDS: BASAGLAR SUBQ SCH (11:03)
--- NOTE | 2018-04-28 13:17 | PROGRESS NOTE ---
DATE: 04/28/2018 SUBJECTIVE: The patient is not reporting anything. She has very tangential and circumstantial yet. I am not able to home obtain any pertinent information for her. No issues noted as per nursing staff overnight. OBJECTIVE: Vital Signs: Temperature 97.5 degrees, heart rate 70, respiratory rate 17, blood pressure 155/80. O2 saturation 99% on room air. General Examination: This is a 72-year-old female lying in bed, in no acute distress. Cardiovascular: S1, S2 heard. No murmurs, gallops, or rubs. Regular rate and rhythm. Respiratory: Clear bilaterally to auscultation. No work of breathing or using accessory muscles. Abdomen: Soft, nontender to palpation. Bowel sounds present. No organomegaly. Extremities: Right knee is fine with less swelling no erythema apparently painful to palpation but she looks also in some discomfort when we palpate the left knee. Neurological: Patient awake, moves 4 extremities spontaneously, noncoherent speech with an intentional and circumstantial speech. LABORATORY DATA: Reviewed. ASSESSMENT AND PLAN: 1. Urinary tract infection. We will continue with cephalexin for 6 more days. 2. Septic arthritis ruled out. Orthopedics has evaluated this patient and synovial culture from synovial fluid is negative. 3. Psychosis. The patient needs to go to a psychiatric facility. direct service worker working on it. 4. Disposition. Awaiting a bed in a psychiatric facility. cc: Hiram Schofield MD
[2018-04-28] MEDS: MEVACOR PO SCH (16:41)
[2018-04-28] MEDS: SINGULAIR PO SCH (23:11)
[2018-04-28] MEDS: DESYREL PO SCH (23:12)
[2018-04-28] MEDS: LOXITANE PO SCH (23:13)
[2018-04-28] MEDS: TOVIAZ PO SCH (23:14)
[2018-04-29] MEDS: TORADOL IV SCH ×4 (03:05→23:02)
[2018-04-29] MEDS: OFIRMEV 1000 MG/ISOTONIC SOLN 1,000 MG/100 ML BOTTLE IV SCH ×4 (03:05→23:01)
[2018-04-29] MEDS: HUMALOG SUBQ SCH ×4 (06:13→20:59)
[2018-04-29] MEDS: SYNTHROID PO SCH (06:18)
[2018-04-29] MEDS: LOVENOX SUBQ SCH (06:19)
[2018-04-29] MEDS: PRILOSEC PO SCH (06:19)
[2018-04-29] MEDS: KEFLEX PO SCH ×3 (06:19→23:04)
[2018-04-29] MEDS: AMITIZA PO SCH ×2 (08:25→23:02)
[2018-04-29] MEDS: MYRBETRIQ E.R. PO SCH (08:25)
[2018-04-29] MEDS: CLARITIN PO SCH (08:25)
[2018-04-29] MEDS: COREG PO SCH ×2 (08:26→23:03)
[2018-04-29] MEDS: ISOPTIN SR PO SCH ×2 (08:26→23:03)
[2018-04-29] MEDS: BASAGLAR SUBQ SCH (08:26)
[2018-04-29 09:15] LABS: BASO% 1.2 % (0.0-0.8); EOS# 0.34 X1000 (0.0-0.7); HEMATOCRIT 37.5 % (37.0-47.0); HEMOGLOBIN 12.2 g/dL (12.0-16.0); IMM GRAN# 0.04 X1000 (0.0-0.04); IMM GRAN% 0.5 % (0.0-0.5); LYMPH# 2.56 X1000 (1.2-3.4); MCH 27.4 PG (27-31); MCHC 32.5 g/dL (33-37); MCV 84.3 FL (81-99); MONO# 0.76 X1000 (0.11-0.59); MONO% 8.9 % (1.7-9.3); NEUT# 4.72 X1000 (1.4-6.5); NEUT% 55.4 % (42.2-75.2); PLT 608 X1000 (130-400); RBC 4.45 XMIL (4.2-5.4); RDW 14.4 % (11.5-14.5); WBC 8.52 X1000 (4.8-10.8)
[2018-04-29 09:56] LABS: AGAP 15; BUN 21 mg/dL (8-22); CALCIUM 9.8 mg/dL (8.8-10.2); CHLORIDE 99 mmol/L (98-107); COSMO 277; CREATININE 0.6 mg/dL (0.5-0.9); ESTIMATED GFR > 60; GLUCOSE 130 mg/dL (70-104); POTASSIUM 4.5 mmol/L (3.5-5.1); SODIUM 136 mmol/L (136-145); TCO2 22 mmol/L (25-35)
--- NOTE | 2018-04-29 14:37 | PROGRESS NOTE ---
DATE: 04/29/2018 SUBJECTIVE: Patient according to nursing staff has been stable. Sometimes she screams, but we are not sure that she is in pain or not. She has baseline dementia and tangential speech. Not able to get any further new information from her. OBJECTIVE: Vital Signs: Temperature 97.7, heart rate 78, respiratory rate 18, blood pressure 156/108, O2 sat 100% on room air. General: This is a 72-year-old female lying in bed, in no acute distress. Cardiovascular: S1, S2 heard. No murmurs, gallops or rubs. Regular rate and rhythm. Respiratory: Clear bilaterally to auscultation. No work of breathing. Not using accessory muscles. Abdomen: Soft, nontender to palpation. Bowel sounds present. No organomegaly. Extremities: No clubbing, cyanosis or edema. Peripheral pulses present in both legs. The right knee does not have any swelling or edema. Neurologic: Patient is awake, moves 4 extremities spontaneously. Noncoherent speech. LABORATORY DATA: Reviewed. ASSESSMENT AND PLAN: 1. Urinary tract infection. We will continue with cephalexin for 5 more days. 2. Septic arthritis, ruled out. 3. Psychosis. Patient awaiting to have a psychiatric facility and awaiting for guardian for this patient which is a specific requirement from psychiatric facility, in this case [facility] [place], in order to take the patient. 4. Disposition: We will continue to monitor this patient closely cc: Hiram Schofield MD [facility]
[2018-04-29] MEDS: MEVACOR PO SCH (16:03)
[2018-04-29] MEDS: IMIPRAMINE HCL PO SCH (23:02)
[2018-04-29] MEDS: SINGULAIR PO SCH (23:03)
[2018-04-29] MEDS: TOVIAZ PO SCH (23:03)
[2018-04-29] MEDS: DESYREL PO SCH (23:04)
[2018-04-29] MEDS: LOXITANE PO SCH (23:04)
[2018-04-30] MEDS: OFIRMEV 1000 MG/ISOTONIC SOLN 1,000 MG/100 ML BOTTLE IV SCH ×4 (04:03→21:20)
[2018-04-30] MEDS: TORADOL IV SCH ×3 (04:03→15:22)
[2018-04-30] MEDS: PRILOSEC PO SCH ×2 (05:57→06:48)
[2018-04-30] MEDS: KEFLEX PO SCH ×3 (05:57→21:20)
[2018-04-30] MEDS: LOVENOX SUBQ SCH (05:57)
[2018-04-30] MEDS: SYNTHROID PO SCH ×2 (05:58→06:48)
[2018-04-30] MEDS: HUMALOG SUBQ SCH ×4 (06:01→20:25)
[2018-04-30 07:35] LABS: BASO# 0.09 X1000 (0.0-0.2); EOS# 0.41 X1000 (0.0-0.7); EOS% 4.4 % (0.0-10.0); HEMATOCRIT 38.8 % (37.0-47.0); HEMOGLOBIN 12.5 g/dL (12.0-16.0); IMM GRAN# 0.04 X1000 (0.0-0.04); IMM GRAN% 0.4 % (0.0-0.5); LYMPH# 2.66 X1000 (1.2-3.4); LYMPH% 28.6 % (20.5-51.1); MCH 27.3 PG (27-31); MCHC 32.2 g/dL (33-37); MCV 84.7 FL (81-99); MONO# 0.98 X1000 (0.11-0.59); MONO% 10.5 % (1.7-9.3); MPV 9.8 FL (7.4-10.4); NEUT# 5.13 X1000 (1.4-6.5); NEUT% 55.1 % (42.2-75.2); PLT 592 X1000 (130-400); RBC 4.58 XMIL (4.2-5.4); RDW 14.6 % (11.5-14.5); WBC 9.31 X1000 (4.8-10.8)
[2018-04-30] MEDS ORDERED: INSULIN PEN NEEDLES ONE (07:36)
[2018-04-30 07:56] LABS: AGAP 14; BUN 21 mg/dL (8-22); CHLORIDE 100 mmol/L (98-107); COSMO 279; CREATININE 0.6 mg/dL (0.5-0.9); ESTIMATED GFR > 60; GLUCOSE 106 mg/dL (70-104); POTASSIUM 4.8 mmol/L (3.5-5.1); SODIUM 138 mmol/L (136-145); TCO2 24 mmol/L (25-35)
[2018-04-30] MEDS: BASAGLAR SUBQ SCH (09:43)
[2018-04-30] MEDS: ISOPTIN SR PO SCH ×2 (09:45→21:19)
[2018-04-30] MEDS: MYRBETRIQ E.R. PO SCH (09:45)
[2018-04-30] MEDS: AMITIZA PO SCH ×2 (09:45→21:20)
[2018-04-30] MEDS: COREG PO SCH ×2 (09:45→21:19)
[2018-04-30] MEDS: CLARITIN PO SCH (09:45)
[2018-04-30] MEDS: XANAX PO PRN (09:53)
--- NOTE | 2018-04-30 12:59 | PROGRESS NOTE ---
DATE: 04/30/2018 SUBJECTIVE: The patient is stable. According to nursing staff, she keeps smiling constantly but is not screaming anymore. OBJECTIVE: Vital Signs: Temperature 98.0, heart rate 77, respiratory rate 20, blood pressure 164/84, O2 saturation 99% on room air. General examination: This is a 72-year-old female lying in bed, in no acute distress. Cardiovascular: S1 and S2 heard. No murmurs, gallops, or rubs. Regular rate and rhythm. Respiratory: Clear bilaterally to auscultation. No work of breathing or using accessory muscles. Abdomen: Soft. Nontender to palpation. Bowel sounds present. No organomegaly. Extremities: No clubbing, cyanosis, or edema. Peripheral pulses present in both legs. Neurological: The patient is awake, moves 4 extremities, keeps smiling all day long with noncoherent speech. LABORATORY DATA: Reviewed. ASSESSMENT AND PLAN: 1. Urinary tract infection secondary to Proteus. The patient will continue with cephalexin for 4 more days. 2. Septic arthritis in the right knee ruled out. 3. Psychosis. Patient awaiting for psychiatry facility, to be placed. bench worker hollow handle following. DISPOSITION: Will continue to monitor this patient closely. cc: Hiram Schofield MD
[2018-04-30] MEDS: MEVACOR PO SCH (16:55)
[2018-04-30] MEDS ORDERED: D50W SYRINGE ONE (17:14)
[2018-04-30] MEDS: TOVIAZ PO SCH (21:19)
[2018-04-30] MEDS: SINGULAIR PO SCH (21:19)
[2018-04-30] MEDS: DESYREL PO SCH (21:19)
[2018-04-30] MEDS: LOXITANE PO SCH (21:19)
[2018-04-30] MEDS: IMIPRAMINE HCL PO SCH (21:20)
[2018-05-01] MEDS: OFIRMEV 1000 MG/ISOTONIC SOLN 1,000 MG/100 ML BOTTLE IV SCH ×4 (03:08→22:28)
[2018-05-01] MEDS: SYNTHROID PO SCH (06:43)
[2018-05-01] MEDS: PRILOSEC PO SCH (06:43)
[2018-05-01] MEDS: LOVENOX SUBQ SCH (06:43)
[2018-05-01] MEDS: HUMALOG SUBQ SCH ×4 (06:44→22:29)
[2018-05-01] MEDS: KEFLEX PO SCH (06:44)
[2018-05-01] MEDS: BASAGLAR SUBQ SCH (10:25)
[2018-05-01] MEDS: MYRBETRIQ E.R. PO SCH (10:26)
[2018-05-01] MEDS: COREG PO SCH ×2 (10:26→22:27)
[2018-05-01] MEDS: CLARITIN PO SCH (10:26)
[2018-05-01] MEDS: ISOPTIN SR PO SCH ×2 (10:26→22:27)
[2018-05-01] MEDS: AMITIZA PO SCH ×2 (10:26→22:27)
--- NOTE | 2018-05-01 12:40 | PROGRESS NOTE ---
DATE: 05/01/2018 INTERVAL HISTORY: The patient is confused/psychotic. Speaks words, but only rarely in complete sentences and never gives appropriate response to questions. Largely noncooperative and occasionally somewhat aggressive. No acute events overnight. VITALS: T-max 98.4 degrees, pulse 79, respirations 18, blood pressure 153/84, O2 saturation 97% on room air. OBJECTIVE: General: Slightly anxious, grabs some when I had to close and frequent nonsensical explanations such as "Don't you touch my other knee!" This includes even when I am across the room. No acute events overnight, awaiting psychiatric placement. Cardiovascular: Regular rate and rhythm, no murmurs, rubs, or gallops. Pulmonary: Clear to auscultation bilaterally. Abdomen: Soft, nontender, nondistended. Bowel sounds positive. Extremities: Peripheral pulses intact. No clubbing, cyanosis, or edema. Neurologic: Limited by lack of patient cooperation, but individual words clear. No facial asymmetry. Moving all extremities. No focal deficits identified. Psychiatric: Confused and appears to be responding to internal stimuli. Skin: No new rashes or lesions identified. ASSESSMENT AND PLAN: 1. Urinary tract infection: Urine culture growing out Proteus. Patient is status post 14 days of antibiotics. We will discontinue antibiotics at this time. 2. Psychosis appears to be baseline psychiatric disorder, likely schizophrenia, not otherwise specified. Awaiting for placement at psychiatric facility. Social Work following. 3. Septic arthritis. Initially some concern for septic arthritis of the knee, but this has been ruled out.
[2018-05-01] MEDS: MEVACOR PO SCH (17:21)
[2018-05-01] MEDS: DESYREL PO SCH (22:27)
[2018-05-01] MEDS: LOXITANE PO SCH (22:27)
[2018-05-01] MEDS: TOVIAZ PO SCH (22:27)
[2018-05-01] MEDS: SINGULAIR PO SCH (22:28)
[2018-05-01] MEDS: IMIPRAMINE HCL PO SCH (22:28)
[2018-05-02] MEDS: OFIRMEV 1000 MG/ISOTONIC SOLN 1,000 MG/100 ML BOTTLE IV SCH ×4 (03:26→22:03)
[2018-05-02] MEDS: SYNTHROID PO SCH (06:36)
[2018-05-02] MEDS: PRILOSEC PO SCH (06:36)
[2018-05-02] MEDS: LOVENOX SUBQ SCH (06:36)
[2018-05-02] MEDS: HUMALOG SUBQ SCH ×4 (06:36→22:02)
[2018-05-02] MEDS: AMITIZA PO SCH ×2 (11:53→22:01)
[2018-05-02] MEDS: COREG PO SCH ×2 (11:54→22:01)
[2018-05-02] MEDS: ISOPTIN SR PO SCH ×2 (11:54→22:00)
[2018-05-02] MEDS: BASAGLAR SUBQ SCH ×2 (11:54→12:09)
[2018-05-02] MEDS: XANAX PO PRN (11:54)
[2018-05-02] MEDS: MYRBETRIQ E.R. PO SCH (11:54)
[2018-05-02] MEDS: CLARITIN PO SCH (11:54)
--- NOTE | 2018-05-02 13:09 | PROGRESS NOTE ---
DATE: 05/02/2018 INTERVAL HISTORY: The patient remains psychotic. Speaks sometimes in gibberish sometimes in [place] but not incidences that make any sense. Moving all extremities. Words when in [place] are clear without slurring. Largely noncooperative and occasionally mildly aggressive. No acute events overnight except as above. REVIEW OF SYSTEMS: Unable to obtain secondary to patient's mental status. VITALS: T-max 98.4, pulse 99, respirations 20, blood pressure 140/78, O2 saturation 93% on room air. PHYSICAL EXAM: General: No acute distress on my arrival but became anxious and agitated as I approached the bed. Bizarre gesticulation with arms and multiple explanations which were either complete gibberish or did not make much sense. At 1 point claimed "if you don't shut both of us up to then ... " This was said while grabbing her head and rocking back and forth. Still awaiting psychiatric bed placement. HEENT: Normocephalic, atraumatic. Cardiovascular: Regular rate and rhythm. Pulmonary: Clear to auscultation bilaterally. Abdomen: Soft, nontender, nondistended. Extremities: No clubbing, cyanosis or edema. Neurologic: Exam very limited by lack patient cooperation but no slurring of words, no facial asymmetry. Moves all extremities without difficulty. No focal deficits identified. Psychiatric: Confused, frequently speaks in gibberish, appears to be responding to internal stimuli. Skin: No new rashes or lesions identified. ASSESSMENT AND PLAN: 1. Urinary tract infection. Urine culture grew out Proteus. Patient status post course of antibiotics off antibiotics and no continued infection noted. 2. Psychosis. No contributing underlying medical issues identified at this time. Appears to be primary psychiatric disorder, likely schizophrenia. Waiting guardianship for placement at psychiatric facility. Social Work following.
[2018-05-02] MEDS: MEVACOR PO SCH (17:33)
[2018-05-02] MEDS: LOXITANE PO SCH (22:00)
[2018-05-02] MEDS: TOVIAZ PO SCH (22:00)
[2018-05-02] MEDS: DESYREL PO SCH (22:01)
[2018-05-02] MEDS: SINGULAIR PO SCH (22:01)
[2018-05-02] MEDS: IMIPRAMINE HCL PO SCH (22:01)
[2018-05-03] MEDS: OFIRMEV 1000 MG/ISOTONIC SOLN 1,000 MG/100 ML BOTTLE IV SCH ×4 (03:11→22:11)
[2018-05-03] MEDS: SYNTHROID PO SCH (06:34)
[2018-05-03] MEDS: LOVENOX SUBQ SCH (06:34)
[2018-05-03] MEDS: PRILOSEC PO SCH (06:34)
[2018-05-03] MEDS: HUMALOG SUBQ SCH ×4 (06:35→23:02)
[2018-05-03] MEDS ORDERED: ISOPTIN SR PO SCH (09:30)
[2018-05-03] MEDS: MYRBETRIQ E.R. PO SCH (10:46)
[2018-05-03] MEDS: AMITIZA PO SCH ×2 (10:46→22:13)
[2018-05-03] MEDS: COREG PO SCH ×2 (10:46→22:12)
[2018-05-03] MEDS: CLARITIN PO SCH (10:46)
[2018-05-03] MEDS: BASAGLAR SUBQ SCH ×2 (10:48→17:35)
[2018-05-03] MEDS: ISOPTIN SR PO SCH ×2 (10:48→23:40)
--- NOTE | 2018-05-03 13:36 | PROGRESS NOTE ---
DATE: 05/03/2018 INTERVAL HISTORY: The patient is still extraordinarily confused with odd movements, strange speech and nonsensical behavior. At one point, when I asked patient if she needs anything, she held up a finger on her left hand and took her other hand and twisted said finger and began to thrash. She did not appear to do herself any damage when she twisted her finger. REVIEW OF SYSTEMS: Unable to obtain secondary to patient's mental status. PHYSICAL EXAMINATION: Vitals: T-max 98.3, pulse 74, respirations 18, blood pressure 104/66, O2 saturation 100% on room air. General: No acute distress intermittently but intermittently thrashes, exclaims, etc. HEENT: Normocephalic, atraumatic. Cardiovascular: Regular rate and rhythm. Pulmonary: Clear to auscultation bilaterally. Abdomen: Soft, nontender, nondistended. Extremities: No clubbing, cyanosis, or edema. Neurologic: Limited, but no clear focal deficits. Psychiatric: Remains psychotic floridly. Skin: No new rashes or lesions identified. ASSESSMENT AND PLAN: 1. Psychosis, likely schizophrenia. Little improvement in patient's mental status. Will attempt to add some low-dose Seroquel, but will almost certainly need inpatient psychiatric admission for stabilization. 2. Urinary tract infection, status post treatment of Proteus urinary tract infection. 3. Hypothyroidism. Continue Synthroid. 4. Diabetes. A1c 6.3. Reasonable control on current sliding scale insulin. 5. Gastroesophageal reflux disease. Continue proton pump inhibitor. 6. Obesity, stable.
[2018-05-03] MEDS: MEVACOR PO SCH (17:36)
[2018-05-03] MEDS: XANAX PO PRN (17:40)
[2018-05-03] MEDS: SINGULAIR PO SCH (22:11)
[2018-05-03] MEDS: DESYREL PO SCH (22:12)
[2018-05-03] MEDS: LOXITANE PO SCH (22:12)
[2018-05-03] MEDS: IMIPRAMINE HCL PO SCH (23:41)
[2018-05-03] MEDS: TOVIAZ PO SCH (23:42)
[2018-05-04] MEDS: BASAGLAR SUBQ SCH ×2 (06:10→10:17)
[2018-05-04] MEDS: LOVENOX SUBQ SCH (06:11)
[2018-05-04] MEDS: SYNTHROID PO SCH (06:11)
[2018-05-04] MEDS: PRILOSEC PO SCH (06:11)
[2018-05-04] MEDS: HUMALOG SUBQ SCH ×4 (06:12→22:19)
[2018-05-04] MEDS: OFIRMEV 1000 MG/ISOTONIC SOLN 1,000 MG/100 ML BOTTLE IV SCH ×5 (06:13→22:19)
[2018-05-04] MEDS: MYRBETRIQ E.R. PO SCH (10:20)
[2018-05-04] MEDS: COREG PO SCH ×2 (10:20→22:19)
[2018-05-04] MEDS: CLARITIN PO SCH (10:20)
[2018-05-04] MEDS: AMITIZA PO SCH ×2 (10:20→22:19)
[2018-05-04] MEDS: ISOPTIN SR PO SCH ×2 (10:21→22:18)
--- NOTE | 2018-05-04 11:06 | PROGRESS NOTE ---
DATE: 05/04/2018 INTERVAL HISTORY: The patient remains completely psychotic despite medication adjustments. Odd movements, strange noises, bizarre and nonsensical behavior. Does not cooperate. No other acute events overnight. REVIEW OF SYSTEMS: Unable to obtain secondary to the patient's mental status. OBJECTIVE: Vital Signs: Temperature 98.4 degrees, pulse 90, respirations 15, blood pressure 136/60, O2 saturation 100% on room air. Physical Examination: General: No acute distress but intermittent exclamations which are largely nonsensical, on bizarre movements. Individual words are clear. Vitals: As above. HEENT: Normocephalic, atraumatic. Cardiovascular: Regular rate and rhythm. Pulmonary: Clear to auscultation anteriorly. Abdomen: Soft, nontender, nondistended. Extremities: No clubbing, cyanosis, or edema. Neurologic: Examination limited by the patient's mental status but no clear focal deficits. Psychiatric: Remains floridly psychotic. ASSESSMENT AND PLAN: 1. Psychosis, likely schizophrenia. I added low-dose Seroquel but with little improvement. Awaiting inpatient psychiatric bed. 2. Urinary tract infection, status post treatment of Proteus urinary tract infection. 3. Hypothyroidism. Continue Synthroid. 4. Diabetes. A1c 6.3. Reasonably controlled with current sliding scale insulin. 5. Gastroesophageal reflux disease. Continue proton pump inhibitor. 6. Obesity, stable.
[2018-05-04] MEDS: MEVACOR PO SCH (17:11)
[2018-05-04] MEDS: DESYREL PO SCH (22:18)
[2018-05-04] MEDS: LOXITANE PO SCH (22:18)
[2018-05-04] MEDS: SINGULAIR PO SCH (22:18)
[2018-05-04] MEDS: TOVIAZ PO SCH (22:18)
[2018-05-04] MEDS: IMIPRAMINE HCL PO SCH (22:19)
[2018-05-05] MEDS: OFIRMEV 1000 MG/ISOTONIC SOLN 1,000 MG/100 ML BOTTLE IV SCH ×3 (03:14→15:57)
[2018-05-05] MEDS: HUMALOG SUBQ SCH ×4 (06:21→21:52)
[2018-05-05] MEDS: PRILOSEC PO SCH (06:36)
[2018-05-05] MEDS: SYNTHROID PO SCH (06:36)
[2018-05-05] MEDS: LOVENOX SUBQ SCH (06:36)
[2018-05-05] MEDS: CLARITIN PO SCH (10:10)
[2018-05-05] MEDS: COREG PO SCH ×2 (10:11→21:55)
[2018-05-05] MEDS: AMITIZA PO SCH ×2 (10:11→21:57)
[2018-05-05] MEDS: BASAGLAR SUBQ SCH (10:11)
[2018-05-05] MEDS: ISOPTIN SR PO SCH ×2 (10:11→21:55)
[2018-05-05] MEDS: MYRBETRIQ E.R. PO SCH (10:11)
--- NOTE | 2018-05-05 13:19 | PROGRESS NOTE ---
DATE: 05/05/2018 SUBJECTIVE: The patient's psychosis continues unabated. Continued odd movements, strange noises, bizarre and nonsensical behavior. Remains completely uncooperative. No acute events. REVIEW OF SYSTEMS: Unable to obtain secondary to patient's mental status. DISCHARGE VITAL SIGNS: Temperature 97.9 degrees, pulse 100, respirations 19, blood pressure 141/86, O2 saturation 99% on room air. PHYSICAL EXAMINATION: General: No acute distress but laughing uncontrollably. Continued bizarre movements. Vitals: As above. HEENT: Normocephalic, atraumatic. Cardiovascular: Regular rate and rhythm. Pulmonary: Clear to auscultation anteriorly. Abdomen: Soft, nontender, nondistended. Extremities: No clubbing, cyanosis, or edema. Neurologic: Limited by patient's mental status, but no apparent focal deficits. Pupils equal and round. No facial asymmetry. Moving all extremities spontaneously. Psychiatric: Continues to be completely disoriented. Random words, random movement appears to occasionally be responding to internal stimuli. ASSESSMENT/PLAN: 1. Psychosis, likely schizophrenia. Little improvement so far. Increasing Loxitane and monitor. Awaiting psychiatric bed placement. 2. Urinary tract infection status post treatment of Proteus urinary tract infection. 3. Hypothyroidism. Continue Synthroid. 4. Diabetes. A1c 6.3, reasonably controlled on current sliding scale insulin. 5. Gastroesophageal reflux disease. Continue proton pump inhibitors. 6. Obesity. Stable.
[2018-05-05] MEDS: MEVACOR PO SCH (17:14)
[2018-05-05] MEDS ORDERED: LOXITANE PO SCH (21:00)
[2018-05-05] MEDS: IMIPRAMINE HCL PO SCH (21:53)
[2018-05-05] MEDS: TOVIAZ PO SCH (21:55)
[2018-05-05] MEDS: SINGULAIR PO SCH (21:55)
[2018-05-05] MEDS: DESYREL PO SCH (21:55)
[2018-05-06] MEDS: LOVENOX SUBQ SCH (06:40)
[2018-05-06] MEDS: HUMALOG SUBQ SCH ×4 (06:41→21:22)
[2018-05-06] MEDS: SYNTHROID PO SCH (07:37)
[2018-05-06] MEDS: PRILOSEC PO SCH (07:37)
[2018-05-06] MEDS: COREG PO SCH ×2 (09:20→21:21)
[2018-05-06] MEDS: AMITIZA PO SCH ×2 (09:20→21:21)
[2018-05-06] MEDS: CLARITIN PO SCH (09:21)
[2018-05-06] MEDS: BASAGLAR SUBQ SCH (09:21)
[2018-05-06] MEDS: ISOPTIN SR PO SCH ×2 (09:47→21:21)
--- NOTE | 2018-05-06 12:05 | PROGRESS NOTE ---
DATE: 05/06/2018 SUBJECTIVE: Patient remains floridly psychotic. Nursing reports slightly less agitated, but otherwise no improvement on increased dose of antipsychotic. No other acute events overnight. REVIEW OF SYSTEMS: Unable to obtain secondary to patient's mental status. VITALS: Temperature 98.5, pulse 82, respirations 18, blood pressure 156/82, and O2 sat is 100% on room air. OBJECTIVE: General: No acute distress, but bizarre behavior continues, not trying to grab as much today. Vitals: As above. HEENT: Normocephalic, atraumatic. Cardiovascular: Regular rate and rhythm. Pulmonary: Clear to auscultation anteriorly. Abdomen: Soft, nontender, or nondistended. Extremities: No clubbing, cyanosis, or edema. Neurologic: Limited by the patient's mental status, but moving all extremities wildly. No focal deficits identified. Psychiatric: Continues to be completely disoriented with random words, random movements, grabbed at different things, swings at different things deflate. Definitely appears to be responding to internal stimuli. ASSESSMENT AND PLAN: 1. Psychosis, likely schizophrenia, little improvement so far. Will further increase Loxitane and monitor, awaiting psychiatric bed placement. 2. Urinary tract infection, status post treatment of Proteus urinary tract infection. 3. Hypothyroidism. Continue Synthroid. 4. Diabetes. A1c 6.3, reasonably controlled on current sliding scale insulin. 5. Gastroesophageal reflux disease. Continue PPI. 6. Obesity, stable.
[2018-05-06] MEDS: MEVACOR PO SCH (17:07)
--- NOTE | 2018-05-06 18:27 | Diag Imaging Result Doc PS360 ---
EXAM: CHEST-PORTABLE HISTORY: Transfer evaluation for [facility] TECHNIQUE: Portable chest COMPARISON: 04/21/2018 FINDINGS: The lungs are well expanded. The heart is not enlarged. The vessels are not distended. There are no infiltrates. No effusion identified. IMPRESSION: Negative exam. Electronically signed by Piero Mendenhall 05/06/2018 6:26 PM
[2018-05-06 18:43] LABS: BASO# 0.07 X1000 (0.0-0.2); BASO% 0.7 % (0.0-0.8); EOS# 0.28 X1000 (0.0-0.7); EOS% 2.7 % (0.0-10.0); HEMOGLOBIN 13.1 g/dL (12.0-16.0); IMM GRAN# 0.03 X1000 (0.0-0.04); IMM GRAN% 0.3 % (0.0-0.5); LYMPH# 2.82 X1000 (1.2-3.4); LYMPH% 26.8 % (20.5-51.1); MCH 27.6 PG (27-31); MCHC 32.8 g/dL (33-37); MCV 84.4 FL (81-99); MONO# 1.12 X1000 (0.11-0.59); MONO% 10.6 % (1.7-9.3); MPV 9.7 FL (7.4-10.4); NEUT# 6.21 X1000 (1.4-6.5); NEUT% 58.9 % (42.2-75.2); PLT 530 X1000 (130-400); RBC 4.74 XMIL (4.2-5.4); RDW 14.9 % (11.5-14.5); WBC 10.53 X1000 (4.8-10.8)
[2018-05-06 19:35] LABS: AGAP 17; ALB/GLOB RATIO 1.6; ALBUMIN 3.9 g/dL (3.5-5.0); ALKALINE PHOSPHATASE 71 U/L (32-104); BUN 21 mg/dL (8-22); CALCIUM 9.6 mg/dL (8.8-10.2); CHLORIDE 101 mmol/L (98-107); COSMO 287; CREATININE 0.6 mg/dL (0.5-0.9); ESTIMATED GFR > 60; GLUCOSE 114 mg/dL (70-104); GOT 22 U/L (10-30); GPT 27 U/L (10-36); SODIUM 142 mmol/L (136-145); TCO2 24 mmol/L (25-35); TOTAL BILIRUBIN 0.35 mg/dL (0.20-1.00); TOTAL PROTEIN 6.3 g/dL (6.3-8.3)
[2018-05-06 20:14] LABS: URINE SOURCE CATH
[2018-05-06 20:25] LABS: BILIRUBIN URINE SMALL (NEGATIVE); BLOOD URINE NEGATIVE (NEGATIVE); COLOR YELLOW; GLUCOSE URINE NEGATIVE (NEGATIVE); KETONE URINE 10 mg/dL (NEGATIVE); LEUKOCYTES URINE MODERATE (NEGATIVE); NITRITE URINE NEGATIVE (NEGATIVE); PH URINE 5.5; PROTEIN URINE TRACE mg/dL (NEGATIVE); SP GRAVITY URINE 1.022; TURBIDITY URINE CLEAR (CLEAR); UROBILINOGEN URINE 2 mg/dL (NORMAL)
[2018-05-06 20:26] LABS: URINE BACTERIA NEGATIVE /HPF; URINE RBC <10 /HPF (<10); URINE WBC TNTC /HPF (<10)
[2018-05-06 20:36] LABS: UR EPITHELIAL CELLS <10 /HPF (<10)
[2018-05-06] MEDS ORDERED: LOXITANE PO SCH (21:00)
[2018-05-06] MEDS: DESYREL PO SCH (21:20)
[2018-05-06] MEDS: SINGULAIR PO SCH (21:21)
[2018-05-06] MEDS: TOVIAZ PO SCH (21:21)
[2018-05-06] MEDS: IMIPRAMINE HCL PO SCH (21:25)
[2018-05-07] MEDS: LOVENOX SUBQ SCH (06:58)
[2018-05-07] MEDS: SYNTHROID PO SCH (07:00)
[2018-05-07] MEDS: HUMALOG SUBQ SCH (07:00)
[2018-05-07] MEDS: PRILOSEC PO SCH (07:00)
--- NOTE | 2018-05-07 07:34 | EKG Report ---
Test Performed on : 05/06/2018 6:01:25 PM Test Reason : Evaluation for transfer to [facility] Blood Pressure : / mmHG Vent. Rate : 082 BPM Atrial Rate : 082 BPM P-R Int : 134 ms QRS Dur : 068 ms QT Int : 376 ms P-R-T Axes : 068 008 012 degrees QTc Int : 439 ms Sinus rhythm. increased baselene artifact, loose lead V5, limit ST interpretation Abnormal ECG When compared with ECG of 14-APR-2018 09:42, premature atrial complexes. are no longer present Confirmed by Paul DOE, Raghu Gonzales ([id number]) on 05/10/2018 7:08:21 AM
[2018-05-07] MEDS: CLARITIN PO SCH (09:14)
[2018-05-07] MEDS: BASAGLAR SUBQ SCH (09:14)
[2018-05-07] MEDS: ISOPTIN SR PO SCH (09:14)
[2018-05-07] MEDS: COREG PO SCH (09:14)
[2018-05-07] MEDS: AMITIZA PO SCH (09:14)
[2018-05-07] MEDS: XANAX PO PRN (10:25)
[2018-05-07 10:43] VITALS: BP 145/58
--- NOTE | 2018-05-07 12:15 | DISCHARGE SUMMARY ---
ADMISSION DATE: 04/14/2018 DISCHARGE DATE: 05/07/2018 CONSULTATIONS: 1. Dr. Kevon John with Orthopedics. 2. [facility] Mclain. PERTINENT PROCEDURES: 1. Head CT: Negative exam. 2. 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 No evidence of acute intracranial pathology. 3. Right knee x-ray showed effusion. 4. Right femur with no evidence of acute bony disease. DISCHARGE DIAGNOSES: 1. Psychosis, likely schizophrenia, little improvement. I have increased her Loxitane. She has been evaluated by Ceasar Mclain and we have been awaiting a psychiatric bed placement, and she will be discharged there today to continue with her treatment. 2. Urinary tract infection, status post treatment of Proteus urinary tract infection. 3. Hypothyroidism. Continue Synthroid. 4. Diabetes. Hemoglobin A1c 6.3, reasonably controlled. Will continue home regimen. 5. Gastroesophageal reflux disease. Continue proton pump inhibitor. 6. Obesity, stable. 7. Right knee pain, status post total knee arthroplasty. The patient was evaluated by Dr. John. They have ruled out infection as well as ruled out an occult femur fracture. HOSPITAL COURSE: Briefly, Ms. Martin is a 72-year-old female who was admitted to the hospital on 04/14/2018 with altered mental status. She was admitted from the correction with a 2-day history of altered mental status and nonspeaking. She has undergone a head CT and a brain MRI that have not shown anything acute. She was treated for a urinary tract infection secondary to Proteus. Even with the treatment of her UTI, they felt she was questionable for a schizoaffective psychological type disorder. She was evaluated by Ceasar Mclain on 04/19/2018 and they felt that she was appropriate for placement. She has been pending placement since that time. She was also evaluated by Dr. John for complaint of right knee pain. There were no acute findings. She has had a stable hospital course. However, she has had little improvement thus far in her psychosis. She continues with odd movements, strange noises, bizarre and nonsensical behavior, and remains uncooperative. However, no acute events have happened over the course of her hospital stay. She will be discharged today Ceasar Mclain. They did make adjustments Loxitane. VITAL SIGNS: At time of discharge, temperature is 97.5 degrees axillary, heart rate 90, respirations 22, blood pressure 145/58, O2 99% on room air. DISCHARGE DIET: Diabetic with Glucerna shakes t.i.d. DISCHARGE MEDICATIONS: 1. Imipramine 10 mg p.o. at bedtime. 2. Singulair 10 mg p.o. at bedtime. 3. Xanax 0.25 mg p.o. b.i.d. p.r.n. 4. Synthroid 50 mcg p.o. at bedtime. 5. Alavert 10 mg p.o. daily. 6. Lovastatin 40 mg p.o. at bedtime. 7. Verapamil ER 240 mg p.o. b.i.d. 8. Loxitane 25 mg p.o. at bedtime. 9. Coreg 25 mg p.o. q.12 hours. 10. Omnicef 300 mg p.o. b.i.d. for 7 days. 11. Insulin glargine 30 units subcutaneous q.a.m. 12. Amitiza 8 mcg p.o. b.i.d. 13. Desyrel 100 mg p.o. q.p.m. p.r.n. FOLLOWUP: Ms. Martin is being discharged to [facility] to continue with her psychiatric treatment. She can return to the ED or call 911 for any worsening of symptoms. Dictated by CYDNEY Davis for Valeriano Mar MD cc: Darvin Vega MD Patient continues to be quite agitated. individual words clear but no complete sentences at the time of my exam. odd movement and definitely responding to internal stimuli. repeat UA suggestive of possible UTI but suspect colonization rather than infection. will treat with course of PO antibiotics anyway based on previous culture. Patient discharging to [facility] for [facility]. [facility]
== END 2018-05-07 11:45 | DRG 885 ==
LOC: SUPCPDRO → ED 18:13 → 3N 04-14 01:45 → SUATTDRO 04-14 01:45
PROVIDERS: ATTEND Internal Medicine
CPT/HCPCS: 70450; 70551; 71010; 71045; 73552; 73560; 80048; 80053; 81001; 82140; 82306; 82550; 82607; 82746; 82948; 83036; 83605; 83735; 84100; 84439; 84443; 84484; 85025; 85027; 85610; 85651; 85730; 86140; 86592; 87070; 87077; 87088; 87186; 87205; 89051; 93005; 93010; 94761; 97110; 97162; 97530; 99285; A9270; J0131; J0692; J0696; J1650; J1815; J1885; J2060; J2543; J3475; J7030; XXXXX

== ENCOUNTER 2019-06-16 15:26 | Inpatient (IN) ==
[2019-06-16] MEDS ORDERED: MORPHINE IV ONE ×2 (15:55→23:37)
[2019-06-16] MEDS ORDERED: NORFLEX PO ONE (15:55)
--- NOTE | 2019-06-16 15:57 | PROVIDER DOCUMENTATION ---
HPI-Head Injury - General Stated Complaint: FALL Time Seen by Provider: 06/16/19 15:36 Source: patient Allergies/Adverse Reactions: Patient Allergies Allergy/AdvReac Type Severity Reaction Status Date / Time Neuromuscular Blockers, AdvReac Severe SWELLING Verified 03/29/18 13:46 Steroidal [Steroidal Neuromuscular Blockers] Home Medications: Home Medication List Medication Instructions Recorded Confirmed Last Taken Type Levothyroxine [Synthroid] 50 microgm PO HS 04/25/13 05/07/18 05/06/18 History Verapamil HCl [Verapamil ER] 240 mg PO BID 04/25/13 05/07/18 05/07/18 09:14 History Loratadine [Alavert] 10 mg PO DAILY 10/02/13 05/07/18 05/07/18 09:14 History LOVAstatin [Mevacor] 40 mg PO HS 07/12/17 05/07/18 05/06/18 21:21 History Montelukast [Singulair] 10 mg PO QHS 07/12/17 05/07/18 05/06/18 21:21 History Alprazolam 0.25 mg PO BID PRN PRN 04/02/18 05/07/18 05/07/18 10:25 History Carvedilol [Coreg] 25 mg PO Q12HR tablet 05/07/18 05/07/18 05/07/18 09:14 Rx Insulin Glargine [Basaglar 30 unit SUBQ QAM insuln.pen 05/07/18 05/07/18 05/07/18 09:14 Rx [Nonformulary]] Allopurinol [Zyloprim] 100 mg PO DAILY #30 tab 06/06/18 Unknown Rx Divalproex [Depakote Sprinkle] 250 mg PO DAILY 30 Days #60 cap 06/06/18 Unknown Rx Divalproex [Depakote Sprinkle] 500 mg PO QHS 30 Days #120 cap 06/06/18 Unknown Rx Lubiprostone [Amitiza] 8 microgm PO BID 30 Days #15 cap 06/06/18 Unknown Rx Melatonin 10 mg PO QHS #0 tablet 06/06/18 Unknown Rx Nystatin Powder [Mycostatin Powder] 1 applic TOP BID #1 bottle 06/06/18 Unknown Rx Trazodone [Desyrel] 75 mg PO QHS 30 Days #45 tab 06/06/18 Unknown Rx Ziprasidone [Geodon] 60 mg PO DAILY 30 Days #30 cap 06/06/18 Unknown Rx Ziprasidone [Geodon] 80 mg PO PCS 30 Days #30 cap 06/06/18 Unknown Rx - History of Present Illness-Head Injury Head Injury Location: reports: frontal, occipital, parietal Other injuries associated with incident:: reports: head, RUE, LUE Quality of Pain: reports: aching Severity: reports: moderate Onset/Duration: reports: 1-3 hours ago Timing: reports: still present, constant Method of Injury: reports: direct blow, fell Loss of Consciousness: no loss of consciousness Modifying Factors: improves with: nothing Injury Associated Symptoms: reports: arm pain, back/neck pain, headaches, joint pain. denies: dizziness, muscle aches, nausea, shortness of breath, pain with inspiration, vomiting, weakness Locality of Occurance: Other (assisted living facility) Similar Symptoms Previously?: Yes Recently seen or treated by another doctor?: No Review of Systems - Adult - REVIEW OF SYSTEMS - ADULT Constitutional: denies: chills, fever Eyes: denies: blurred vision, double vision Ears, Nose, Mouth & Throat: reports: hearing loss Cardiovascular: denies: chest pain, palpitations, syncope Respiratory: denies: cough, shortness of breath Gastrointestinal: reports: no symptoms reported Genitourinary: reports: no symptoms reported Musculoskeletal: reports: bone pain, back pain, joint pain Integumentary: reports: no symptoms reported Neurological: reports: loss of balance. denies: dizziness/vertigo, numbness, seizure, syncope Psychiatric: reports: anxiety Endocrine: reports: no symptoms reported Hematologic/Lymphatic: reports: no symptoms reported Allergic/Immunologic: reports: no symptoms reported Past History - Adult - PAST MEDICAL HISTORY-ADULT Review of Records: reports: Old Records Reviewed, Social history reviewed & non- contributory. Major Childhood Illnesses: reports: denies history Cardiovascular: reports: HTN, hyperlipidemia Respiratory: reports: asthma, sleep apnea, other (sleep apnea) Gastrointestinal: reports: diverticulosis, GERD Obstetrical/Gynecological: reports: other (R breast CA) Genitourinary: reports: chronic UTI's Musculoskeletal: reports: arthritis (OA), chronic pain, fibromyalgia, other (bursitis L knee) Neurological: reports: CVA, TIA Psychiatric: reports: psychiatric problems Endocrine/Immune: reports: Diabetes, thyroid disorder Other Conditions: reports: denies history, cataract/glaucoma, MRSA - PRIOR SURGERIES/PROCEDURES Surgical/Procedure History: reports: hysterectomy, tonsillectomy, orthopedic (extremity) (R shoulder), joint replacement (knee), breast (mastectomy), other (cataract removal, lymphectomy, cystohydro dilation) - IMMUNIZATION STATUS Childhood Immunizations: See Nurse Assessment Flu Vaccine: See Nurse Assessment - FAMILY HISTORY Family History: reviewed, not pertinent - SOCIAL HISTORY Smoking: denies Substance Use: denies Living Situation: care facility Physical Exam- Neurological - Physical Exam-Neuro Initial Vital Signs Reviewed: Yes General Appearance: alert, no apparent distress Eye Exam: bilateral eye: normal inspection, PERRL, EOMI HENMT: normocephalic/atraumatic, moist mucous membranes, other (pt with glue in hair from electrodes from overnight sleep study) Head Injury: no evidence of injury. 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 Exam: normal hearing, PERRL, hearing deficit (R), hearing deficit (L) Coordination/Gait: normal finger to nose Motor/Sensory: no motor deficit, no sensory deficit, no pronator drift Neurologic: grossly normal Integumentary: normal color, normal turgor, warm/dry Psych/Mental Status: anxious - Glascow Coma Scale Best Eye Response: (4) open spontaneously Best Verbal Response: (5) oriented Best Motor Response: (6) obeys commands Progress - PLAN OF CARE/RESULTS Progress/Plan/Lab Results: Vital Signs - 8 hr 06/16/19 16:00 06/16/19 20:47 Temperature 97.7 F Pulse Rate 55 L 69 Respiratory Rate 20 18 Blood Pressure 151/65 157/95 O2 Sat by Pulse Oximetry 96 100 Laboratory Results - last 24 hr 06/16/19 06/16/19 06/16/19 16:30 16:30 17:32 WBC RBC Hgb Hct MCV MCH MCHC RDW Std Deviation Plt Count MPV Neut % (Auto) Lymph % (Auto) [place] % (Auto) Eos % (Auto) Baso % (Auto) Neut # (Auto) Lymph # (Auto) [place] # (Auto) Eos # (Auto) Baso # (Auto) Sodium 120 L* Potassium 4.4 Chloride 83 L Carbon Dioxide 23 L Anion Gap 13 BUN 10 Creatinine 0.8 Estimated GFR/1.73 m2 > 60 BUN/Creatinine Ratio 13 Glucose 111 H Calculated Osmolality 240 Calcium 8.5 L Magnesium Total Bilirubin 0.47 AST 38 H ALT 18 Alkaline Phosphatase 115 H Total Protein 6.3 Albumin 3.1 L Globulin 3.2 Albumin/Globulin Ratio 1.0 Urine Source CATH Urine Color YELLOW Urine Turbidity CLEAR Urine pH 7.0 Ur Specific [place] 1.008 Urine Protein NEGATIVE Ur Glucose (Stick) NEGATIVE Ur Ketones (Stick) NEGATIVE Urine Blood NEGATIVE Urine Nitrite NEGATIVE Urine Bilirubin NEGATIVE Urobilinogen Dipstick NORMAL Urine Leukocytes NEGATIVE Urine WBC (Auto) <10 Urine RBC (Auto) <10 U Epithel Cells (Auto) <10 Urine Bacteria (Auto) NEGATIVE Ur Random Sodium 38 06/16/19 06/16/19 17:32 17:32 WBC 8.03 RBC 3.95 L Hgb 11.9 L Hct 34.7 L MCV 87.8 MCH 30.1 MCHC 34.3 RDW Std Deviation 13.5 Plt Count 259 MPV 9.3 Neut % (Auto) 52.2 Lymph % (Auto) 29.0 [place] % (Auto) 16.7 H Eos % (Auto) 2.0 Baso % (Auto) 0.1 Neut # (Auto) 4.19 Lymph # (Auto) 2.33 [place] # (Auto) 1.34 H Eos # (Auto) 0.16 Baso # (Auto) 0.01 Sodium Potassium Chloride Carbon Dioxide Anion Gap BUN Creatinine Estimated GFR/1.73 m2 BUN/Creatinine Ratio Glucose Calculated Osmolality Calcium Magnesium 1.4 L Total Bilirubin AST ALT Alkaline Phosphatase Total Protein Albumin Globulin Albumin/Globulin Ratio Urine Source Urine Color Urine Turbidity Urine pH Ur Specific [place] Urine Protein Ur Glucose (Stick) Ur Ketones (Stick) Urine Blood Urine Nitrite Urine Bilirubin Urobilinogen Dipstick Urine Leukocytes Urine WBC (Auto) Urine RBC (Auto) U Epithel Cells (Auto) Urine Bacteria (Auto) Ur Random Sodium Orders Category Date Time Status Nursing- Obtain EKG ONCE Care 06/16/19 15:55 Active Update & Confirm Home Medicati ROUTINE Care 06/16/19 20:59 Active Diabetic Diet Diet 06/16/19 19:[address] HEAD/C-SPINE W/O CONTRAST [CT] Stat Exams 06/16/19 15:54 Completed HAND 2 VIEWS RIGHT [RAD] Stat Exams 06/16/19 15:55 Completed WRIST 2 VIEWS-RIGHT [RAD] Stat Exams 06/16/19 15:55 Completed CBC WITH ELECTRONIC DIFF [HEME] Stat Lab 06/16/19 17:32 Completed COMPREHENSIVE METABOLIC PANEL [CHEM] Stat Lab 06/16/19 17:32 Completed MAGNESIUM [CHEM] Stat Lab 06/16/19 17:32 Completed SERUM OSMOLALITY [CHEM] Stat Lab 06/16/19 16:30 Received UR OSMOLALITY [CHEM] Stat Lab 06/16/19 16:30 Received UR SODIUM [URCHEM] Stat Lab 06/16/19 16:30 Completed URINALYSIS W/POSS RFLX CULT [URINALYSIS] Stat Lab 06/16/19 16:30 Completed 0.9% Sodium Chloride Inj [Ns] 1,000 ml Med 06/16/19 18:45 Active IV 125 mls/hr Magnesium Gluconate Med 06/16/19 19:58 Discontinued 500 mg PO NOW ONE Morphine Med 06/16/19 15:55 Discontinued 4 mg IV NOW ONE Orphenadrine [Norflex] Med 06/16/19 15:55 Discontinued 100 mg PO NOW ONE EKG [EKG] Stat Ther 06/16/19 15:54 Draft Transfer/Admit Order [TRANSFER] Routine Transfer 06/16/19 20:57 Ordered Result Diagrams: 06/16/19 17:32 06/16/19 17:32 - XRAY 1 XRAY: Right XRAY Study: Wrist Impression: Normal, See EMR Report (WRIST 2 VIEWS-RIGHT - 06/16/2019 INDICATION: injury TECHNIQUE: COMPARISON: 01/11/2018 FINDINGS: No fracture or dislocation. There is stable extremely severe degeneration at the first carpometacarpal joint. IMPRESSION: No acute injury. Electronically signed by Hernando Renteria 06/16/2019 4:18 PM) 2 XRAY: Right XRAY Study: Hand Impression: Normal, See EMR Report (HAND 2 VIEWS RIGHT - 06/16/2019 INDICATION: injury TECHNIQUE: COMPARISON: None FINDINGS: There is severe degeneration at the first carpal carpometacarpal joint. There is advanced osteoarthritis of all the interphalangeal joints as well. No fracture or dislocation. IMPRESSION: No acute injury. Electronically signed by Hernando Renteria 06/16/2019 4:19 PM) - CT/MRI 1 CT Study: Cervical Spine, Head Impression: See EMR Report (INDICATION: head injury COMPARISON: 04/13/2018 FINDINGS: Head CT: The ventricles and sulci are normal in size and contour. No intracranial mass or hemorrhage. Stable mild cerebral white matter chronic microvascular ischemia. The skull is intact. There is severe sinusitis of the left maxillary sinus. Cervical spine: Alignment is anatomic. Vertebral body heights are preserved. No fracture or subluxation. There is moderate multilevel degenerative disc disease. There is also moderate multilevel facet degeneration. IMPRESSION: No acute injury. Left maxillary sinusitis. This exam was performed using automated exposure control, adjustment of mA or kV according to patient size, and/or use of iterative reconstruction technique Electronically signed by Hernando Renteria 06/16/2019 5:42 PM 06/16/19 [id number]) - CONSULTS/PCP/HOSPITALIST Notification #1 *Consult/PCP/Hospitalist*: Dr. Leos Time Discussed: 19:20 Consult Disposition: Admit (observation) Departure - Departure Date of Disposition Decision: 06/16/19 Time of Disposition Decision: 18:43 DIAGNOSIS: Hyponatremia Disposition: ADMITTED INPATIENT 09 Certified Medical Emergency: Emergent Condition: Stable - Critical Care Note This patient required my direct & personal management of CC.: No Attestation - Physician/ YOLANDE Attestation Patient care was provided by Advanced Practice Provider:: No The physician spent face to face time with patient:: Yes Advanced Practice Provider documentation review:: Supervising physician onsite and consulted in the evaluation and care of this patient. The physician did have a face to face encounter with the patient.
--- NOTE | 2019-06-16 16:20 | Diag Imaging Result Doc PS360 ---
WRIST 2 VIEWS-RIGHT - 06/16/2019 INDICATION: injury TECHNIQUE: COMPARISON: 01/11/2018 FINDINGS: No fracture or dislocation. There is stable extremely severe degeneration at the first carpometacarpal joint. IMPRESSION: No acute injury. Electronically signed by Hernando Renteria 06/16/2019 4:18 PM
--- NOTE | 2019-06-16 16:21 | Diag Imaging Result Doc PS360 ---
HAND 2 VIEWS RIGHT - 06/16/2019 INDICATION: injury TECHNIQUE: COMPARISON: None FINDINGS: There is severe degeneration at the first carpal carpometacarpal joint. There is advanced osteoarthritis of all the interphalangeal joints as well. No fracture or dislocation. IMPRESSION: No acute injury. Electronically signed by Hernando Renteria 06/16/2019 4:19 PM
--- NOTE | 2019-06-16 16:34 | EKG Report ---
Test Performed on : 06/16/2019 4:09:46 PM Test Reason : CP Blood Pressure : / mmHG Vent. Rate : 054 BPM Atrial Rate : 054 BPM P-R Int : 192 ms QRS Dur : 086 ms QT Int : 468 ms P-R-T Axes : 066 006 029 degrees QTc Int : 443 ms Sinus bradycardia. Otherwise normal ECG When compared with ECG of 06-MAY-2018 18:01, Vent. rate has decreased BY 28 BPM QRS duration has increased ST no longer depressed in Anterior leads Unconfirmed Result
[2019-06-16 16:56] LABS: URINE SOURCE CATH
[2019-06-16 17:09] LABS: BILIRUBIN URINE NEGATIVE (NEGATIVE); BLOOD URINE NEGATIVE (NEGATIVE); COLOR YELLOW; GLUCOSE URINE NEGATIVE (NEGATIVE); KETONE URINE NEGATIVE (NEGATIVE); LEUKOCYTES URINE NEGATIVE (NEGATIVE); NITRITE URINE NEGATIVE (NEGATIVE); PROTEIN URINE NEGATIVE (NEGATIVE); SP GRAVITY URINE 1.008; TURBIDITY URINE CLEAR (CLEAR); UROBILINOGEN URINE NORMAL (NORMAL)
[2019-06-16 17:12] LABS: UR EPITHELIAL CELLS <10 /HPF (<10); URINE BACTERIA NEGATIVE /HPF; URINE RBC <10 /HPF (<10); URINE WBC <10 /HPF (<10)
--- NOTE | 2019-06-16 17:45 | Diag Imaging Result Doc PS360 ---
CT HEAD/C-SPINE W/O CONTRAST - 06/16/2019 INDICATION: head injury COMPARISON: 04/13/2018 FINDINGS: Head CT: The ventricles and sulci are normal in size and contour. No intracranial mass or hemorrhage. Stable mild cerebral white matter chronic microvascular ischemia. The skull is intact. There is severe sinusitis of the left maxillary sinus. Cervical spine: Alignment is anatomic. Vertebral body heights are preserved. No fracture or subluxation. There is moderate multilevel degenerative disc disease. There is also moderate multilevel facet degeneration. IMPRESSION: No acute injury. Left maxillary sinusitis. This exam was performed using automated exposure control, adjustment of mA or kV according to patient size, and/or use of iterative reconstruction technique Electronically signed by Hernando Renteria 06/16/2019 5:42 PM
[2019-06-16 17:56] LABS: BASO# 0.01 X1000 (0.0-0.2); BASO% 0.1 % (0.0-0.8); EOS# 0.16 X1000 (0.0-0.7); HEMATOCRIT 34.7 % (37.0-47.0); HEMOGLOBIN 11.9 g/dL (12.0-16.0); LYMPH# 2.33 X1000 (1.2-3.4); MCH 30.1 PG (27-31); MCHC 34.3 g/dL (33-37); MCV 87.8 FL (81-99); MONO# 1.34 X1000 (0.11-0.59); MONO% 16.7 % (1.7-9.3); MPV 9.3 FL (7.4-10.4); NEUT# 4.19 X1000 (1.4-6.5); NEUT% 52.2 % (42.2-75.2); PLT 259 X1000 (130-400); RBC 3.95 XMIL (4.2-5.4); RDW 13.5 % (11.5-14.5); WBC 8.03 X1000 (4.8-10.8)
[2019-06-16 18:43] LABS: AGAP 13; ALBUMIN 3.1 g/dL (3.5-5.0); ALKALINE PHOSPHATASE 115 U/L (32-104); BUN 10 mg/dL (8-22); CALCIUM 8.5 mg/dL (8.8-10.2); CHLORIDE 83 mmol/L (98-107); COSMO 240; CREATININE 0.8 mg/dL (0.5-0.9); ESTIMATED GFR > 60; GLUCOSE 111 mg/dL (70-104); GOT 38 U/L (10-30); GPT 18 U/L (10-36); POTASSIUM 4.4 mmol/L (3.5-5.1); SODIUM 120 mmol/L (136-145); TCO2 23 mmol/L (25-35); TOTAL BILIRUBIN 0.47 mg/dL (0.20-1.00); TOTAL PROTEIN 6.3 g/dL (6.3-8.3)
[2019-06-16] MEDS: NS 1,000 ML IV SCH (19:52)
[2019-06-16] MEDS ORDERED: MAGNESIUM GLUCONATE PO ONE (19:58)
--- NOTE | 2019-06-17 02:52 | EKG Report ---
Test Performed on : 06/17/2019 00:43:03 AM Test Reason : SOB Blood Pressure : / mmHG Vent. Rate : 076 BPM Atrial Rate : 076 BPM P-R Int : 200 ms QRS Dur : 084 ms QT Int : 448 ms P-R-T Axes : 080 009 042 degrees QTc Int : 504 ms Normal sinus rhythm. Normal ECG When compared with ECG of 16-JUN-2019 16:09, (Unconfirmed) QT has lengthened Confirmed by Ella Woodward MD ([id number]) on 06/17/2019 8:15:07 AM
[2019-06-17] MEDS: NS 1,000 ML IV SCH (04:26)
[2019-06-17] MEDS ORDERED: NS 1,000 ML IV SCH (05:17)
--- NOTE | 2019-06-17 06:23 | Diag Imaging Result Doc PS360 ---
SHOULDER-RIGHT - 06/16/2019 INDICATION: Fall, Right shoulder pain TECHNIQUE: Two views COMPARISON: 01/11/2018 FINDINGS: Stable changes of distal clavicle resection. There is no fracture or dislocation. IMPRESSION: No acute injury. Electronically signed by Hernando Renteria 06/17/2019 6:21 AM
--- NOTE | 2019-06-17 06:23 | Diag Imaging Result Doc PS360 ---
CHEST-PORTABLE - 06/16/2019 INDICATION: SOB COMPARISON: 05/06/2018 FINDINGS: Stable faint linear scarring in the lateral left lung base. No infiltrates or edema. Heart size and pulmonary vascularity is normal. No pneumothorax or large pleural effusion. IMPRESSION: No acute disease. Electronically signed by Hernando Renteria 06/17/2019 6:20 AM
[2019-06-17] MEDS: PEPCID PO SCH (06:43)
[2019-06-17] MEDS: HUMULIN R SUBQ SCH ×4 (06:44→20:42)
[2019-06-17] MEDS: SYNTHROID PO SCH (06:44)
--- NOTE | 2019-06-17 07:39 | HISTORY AND PHYSICAL ---
PRIMARY CARE PROVIDER: Dr. Darvin Vega at [facility]. CHIEF COMPLAINT: Weakness with a fall. HISTORY OF PRESENT ILLNESS: Ms. Martin is a 73-year-old, female who is a resident at [facility]. She reports that just prior to her arrival, [facility]. The patient states that she does have a walker that has one of the seats on it. She was headed to the [employer] and when she got to the [employer], she was going to try to sit down into a chair, though while she was standing, she became weak. This caused her to fall. Since her fall, the patient does complain of pain to her head, though she states she did not hit her head. She did not lose consciousness. The patient actually did have a sleep study performed recently and what she is complaining of, does possibly have an abrasion from where one of the electrodes was placed on her head and this is the area that she is complaining of hurting. She is complaining of neck pain, right shoulder pain, and right hand and wrist pain. The patient is not complaining of a headache per se. She is complaining of head pain on the top of her head. She denies any chest pain at present, though states that she occasionally has chest pain that comes and goes, but she is not complaining of any chest pain now. The patient is complaining of some shortness of breath. She does have a history of asthma and states that she has noticed that she has been more intermittently short of breath recently. She denies any cough. She is complaining of right shoulder pain. She did complain of pain with manipulation and palpation of her right shoulder. She is not complaining of any abdominal pain. She denied any nausea, vomiting, diarrhea. The patient does have a history of having frequent urinary tract infections. At this time, she is denying any urinary symptoms such as urinary frequency or dysuria. The patient does report chronic swelling in her bilateral lower extremities. She did state that her left lower extremity is normally more swollen than her right. This is the case as well, though she does have 1 to 2+ pitting edema in bilateral lower extremities at the level of the ankle. The patient has stated that she was getting occupational therapy, though has completed at this time. She states that recently, she has not been able to get around as good as she normally does. The distance that she can walk before she has to stop and take a rest, either due to just she cannot walk any farther or because she notices that she is a little more short of breath, has been much less. She states she has felt some weakness, as previously mentioned. The patient has equal muscle strength in hand grasps bilaterally. This does not appear to be unilateral. She did report to me that she has not been eating and drinking good. The patient states that [facility] the [facility], that their food is not good and that due to this, she does have trouble finding things that are appetizing to her. She states that she eats a lot of packed crackers and peanut butter. She reports to me that she does ask for fluids such as water and juice and that they do, more times than not, refuse to bring this to her, telling her that it is not time for juices or it is not time for water. This is only per patient's verbal report, though she states that secondary to this, that she has not been having adequate hydration. She thinks she has not been getting adequate hydration or nutrition. Upon evaluation in the ER, they did do an EKG which showed sinus bradycardia at a rate of 54 with a QTc of 443. They did perform a CT of the head and neck without contrast which showed no acute abnormalities except for some left maxillary sinusitis. There were no cervical acute abnormality noted. Right wrist and right hand x-ray showed no acute abnormalities. During my examination, the patient did report her shortness of breath and right shoulder pain. Given the fall, we did go ahead and do x-ray of both of these, though we are awaiting radiologist impression. There does not appear to be any acute abnormalities noted. On her chest x-ray, there is not any pneumothorax present. We are awaiting radiology impression of the right shoulder x-ray as well. I did perform a repeat EKG which showed a heart rate of 76 with a QTc of 504. Routine lab work for evaluation for weakness and fall did show that she was hyponatremic with a sodium of 120. She also did have a slightly low magnesium level of 1.4. A urinalysis did not show any signs of infection. At this time, the patient has been placed for admission for further evaluation of her weakness, fall, and hyponatremia. REVIEW OF SYSTEMS: A 14 point review of systems was conducted with the patient. All were negative except for pertinent positives mentioned above in the HPI. PAST MEDICAL HISTORY: 1. Asthma. 2. CVA in 2008. 3. Hypothyroidism. 4. Diabetes mellitus type 2. 5. Sleep apnea for which the patient states she is supposed to wear a CPAP, though has not done this for approximately 1 year. 6. Gastroesophageal reflux disease. 7. Reported history of breast cancer. 8. Dysphagia with cricopharyngeal achalasia and presbyesophagus. 9. Chronic pain. 10. Fibromyalgia. 11. Chronic UTIs. 12. Diverticulosis. 13. Hypertension. 14. Anxiety. 15. Depression. 16. Hypercholesterolemia. 17. Muscle weakness. PAST SURGICAL HISTORY: 1. Hysterectomy with bilateral salpingo-oophorectomy. 2. Right mastectomy. 3. Bilateral knee replacements. 4. Right shoulder repair. 5. Tonsillectomy. 6. Cataract extraction. 7. Lymphadenectomy. 8. Cysto-hydrodilation. SOCIAL HISTORY: There is no known tobacco, alcohol, or illicit drug use. The patient is a permanent resident at [facility]. She does require a walker for ambulation. ALLERGIES: Patient has allergies to neuromuscular blockers and steroids. HOME MEDICATIONS: 1. Allopurinol 100 mg p.o. daily. 2. Lipitor 10 mg p.o. at bedtime. 3. Refresh Celluvisc 2 drops in both eyes b.i.d. 4. Coreg 20 mg p.o. q.12 hours. 5. Zyrtec 10 mg p.o. daily. 6. Depakote Sprinkles 3 mg p.o. b.i.d. 7. Yuvafem 1 suppository vaginally as directed. 8. Pepcid 20 mg p.o. daily. 9. Toviaz 4 mg tablet p.o. daily. 10. Insulin glargine 25 units subcutaneously q.a.m. 11. Albuterol and Atrovent, DuoNeb treatments 3 mL inhaled q.4 hours p.r.n. for asthma, shortness of breath, and wheezing. 12. Synthroid 50 mcg p.o. q.a.m. 13. Loratadine 10 mg p.o. daily. 14. Amitiza 8 mcg p.o. b.i.d. 15. Melatonin 2 mg p.o. at bedtime. 16. Myrbetriq 50 mg extended release tablet once p.o. daily. 17. Singulair 10 mg p.o. at bedtime. 18. Pyridium 100 mg tablet 2 tablets p.o. t.i.d. p.r.n. for dysuria. 19. Ultram 50 mg tablet 1 p.o. b.i.d. p.r.n. for pain. 20. Trazodone 75 mg p.o. at bedtime. 21. Verapamil extended release 240 mg p.o. b.i.d. DIAGNOSTIC DATA/LABORATORY RESULTS: White blood cell count is 8030, hemoglobin 11.9, hematocrit 34.7, platelet count 59,000. Sodium 120, potassium 4.4, chloride 83, serum bicarb 23, BUN 10, creatinine 0.8, GFR greater than 60, glucose 111, serum osmolality 250, calcium 8.5, magnesium 1.4. Liver function tests within normal limits except for AST is slightly elevated at 38 and alkaline phosphatase is slightly elevated at 115. CK 68, troponin T high sensitivity is 13. ProBNP is 530. TSH is 2.79. Urinalysis was obtained via catheter. It was negative for protein, glucose, ketones, blood, nitrites, leukocytes, white blood cells, or bacteria. EKG, first one showed sinus bradycardia at 54. The repeat EKG was sinus rhythm. Right shoulder x-ray did not appear to have any acute bony abnormality, though we are awaiting radiologist impression. Chest x-ray did appear to have any acute abnormalities or pneumothorax noted, though we are awaiting radiologist impression of this as well. Right hand and wrist x-ray showed no acute bony abnormality. This was per radiology. CT of head and cervical spine without contrast showed no fracture or subluxation of the cervical spine. There was moderate multilevel degenerative disk disease. There was also moderate multilevel facet degeneration. CT of the head showed no acute injury, though there was left maxillary sinusitis noted. PHYSICAL EXAMINATION: VITAL SIGNS: Temperature 98.2 degrees, heart rate 71, respirations 16, blood pressure is 145/77, oxygen saturation is 100% on room air. GENERAL: Ms. Martin is a 73-year-old, female. She was resting on the ER stretcher. She was in no acute distress. She was awake, alert, and able answer questions appropriately. HEENT: Head is atraumatic, normocephalic. The patient does have a red plus sign on the top of her forehead. This looks to be like it was drawn with a marker. There may be an underlying abrasion, though the marker is red so this will be hard to determine. The patient is complaining of pain on the top of her head. She did recently have an EEG. This may be where they placed an electrode. She may have a sore spot or a scratch or small abrasion in that area. There was no bleeding, ecchymosis, or hematoma noted. Oral mucosa is moist. Oropharynx is clear. NECK: Supple. Trachea midline. There was no overt JVD noted. CARDIOVASCULAR: The patient does have a murmur noted. There were no rubs or gallops appreciated. She has a regular rate and rhythm. PULMONARY: She has symmetrical chest expansion bilaterally. Lung sounds were clear to auscultation in bilateral full rodriguez. ABDOMEN: Soft. It does not appear to be distended, though the patient does have a protuberant abdomen noted. Bowel sounds were present in all 4 quadrants, were normoactive. EXTREMITIES: No cyanosis noted. The patient does have 1 to 2+ pitting edema noted in bilateral lower extremities. The patient states that this is not of new onset, that her legs stay swollen and that her left leg is normally more swollen than her right, which at that level of the ankle, it is. The patient is able to move all extremities. Radial pulses are 2+ bilaterally. Pedal pulses are 1+ bilaterally. Capillary refill is less than 3. Pulse, motor, and sensory are intact in all extremities. INTEGUMENTARY: The patient's skin is pink, warm, and dry. NEUROLOGICAL: The patient is alert and oriented to person, place, time, and situation. There were no focal neurological deficits noted. The patient is able to move all extremities. She does report some weakness, though she does have equal hand grasps and muscle strength bilaterally. There was no unilateral weakness present. ASSESSMENT AND PLAN: 1. Hypotonic hyponatremia. I do feel like, at this time, the patient is euvolemic. She does not appear to be overtly dehydrated. ProBNP was slightly elevated at 590, though she does not have a reported history of congestive heart failure. She does have some edema in her bilateral lower extremities. The patient states this is not of new onset. She did not have any jugular venous distention noted. She did not have any crackles noted in her lung sounds. The patient does take a few medications that could be contributing to this such as Depakote, trazodone. We have held these medications at this time. We are going to add on some additional studies for further evaluation of her hyponatremia. We will await these results and continue to follow. She will be placed on continuous cardiac telemetry. We will do sodium levels every 4 hours. We have calculated the patient's normal saline infusion rate. We will start her at 120 mL per hour at this time and we will closely monitor her sodium level and neurological status. We will adjust her infusion rate based on her clinical progress. 2. Mild hypomagnesemia. The patient was given some oral magnesium gluconate 500 mg in the emergency room. We will recheck a magnesium level in the morning. 3. Weakness with fall from a standing position. As mentioned above in the history of present illness and diagnostic studies, the patient has had x-rays and CTs performed. Even though she did not hit her head, she was complaining of head pain, right shoulder pain, right hand and wrist pain. These have all been x-rayed. There were no acute abnormalities noted. The patient's weakness could be related to her hyponatremia and hypomagnesemia, though if this is corrected and the patient still does continue to have weakness, we may need to rule out other causes. We will hold her atorvastatin at this time, given that it can cause weakness as well. We have placed a consult with physical therapy. We will await their evaluation as well. 4. Diabetes mellitus type 2. We will place her on a pattern fingerstick blood sugars and sliding scale regular insulin per low-dose protocol. 5. Hypertension. We will continue her verapamil and Coreg. The patient, on one of her electrocardiograms, did note that she had a heart rate that was 54, though since that time, the patient has maintained a heart rate in the high 60s and 70s. Given this, we did continue her Coreg. 6. Hypothyroidism. We will continue her Synthroid. 7. Gastroesophageal reflux disease. We will continue her Pepcid. 8. Chronic pain. We have continued her tramadol. 9. The patient has been placed on the medical floor with telemetry. She will have vital signs and neurological checks every 4 hours. We will continue fall precautions. We will do strict intake and output, incentive spirometry. She will be on a diabetic and heart healthy diet. We will repeat a CBC, CMP, and magnesium in the morning. We are doing every 4 hour sodium checks for close monitoring. Also, I did place case management and social media designer consults, given the patient [facility] and will be going back there upon discharge, though also, she did report that she believed she was not getting adequate nutrition. She also reported that when she asked for water and juice that she is being denied this. This may need to be followed up on prior to her discharge back to this facility. Further orders and recommendations pending hospital course, diagnostic studies, and physician evaluation. Dictated by CYDNEY Jackson for Cody Leos MD cc: Cody Leos MD
[2019-06-17] MEDS: ZYRTEC PO SCH (08:47)
[2019-06-17] MEDS: ISOPTIN SR PO SCH ×2 (08:47→20:41)
[2019-06-17] MEDS: SYSTANE EYE DROPS BOTH EYES SCH ×2 (08:48→20:42)
[2019-06-17] MEDS ORDERED: MYRBETRIQ E.R. PO SCH (09:00)
[2019-06-17] MEDS ORDERED: COREG PO SCH (09:00)
[2019-06-17] MEDS ORDERED: DEPAKOTE SPRINKLE PO SCH (09:00)
[2019-06-17] MEDS: DEPAKOTE SPRINKLE PO SCH ×2 (09:01→20:40)
[2019-06-17] MEDS: ULTRAM PO PRN ×2 (09:08→20:41)
[2019-06-17 13:43] LABS: BASO# 0.09 X1000 (0.0-0.2); BASO% 1.1 % (0.0-0.8); EOS# 0.15 X1000 (0.0-0.7); EOS% 1.9 % (0.0-10.0); HEMATOCRIT 37.8 % (37.0-47.0); HEMOGLOBIN 12.7 g/dL (12.0-16.0); IMM GRAN# 0.04 X1000 (0.0-0.04); IMM GRAN% 0.5 % (0.0-0.5); LYMPH# 1.55 X1000 (1.2-3.4); LYMPH% 19.1 % (20.5-51.1); MCH 30.5 PG (27-31); MCHC 33.6 g/dL (33-37); MCV 90.6 FL (81-99); MONO% 18.5 % (1.7-9.3); NEUT# 4.77 X1000 (1.4-6.5); NEUT% 58.9 % (42.2-75.2); PLT 275 X1000 (130-400); RBC 4.17 XMIL (4.2-5.4); RDW 14.2 % (11.5-14.5)
[2019-06-17 14:04] LABS: AGAP 15; ALB/GLOB RATIO 0.9; ALBUMIN 2.9 g/dL (3.5-5.0); ALKALINE PHOSPHATASE 108 U/L (32-104); BUN 8 mg/dL (8-22); CHLORIDE 95 mmol/L (98-107); COSMO 260; CREATININE 0.6 mg/dL (0.5-0.9); ESTIMATED GFR > 60; GLUCOSE 152 mg/dL (70-104); GOT 51 U/L (10-30); GPT 21 U/L (10-36); MAGNESIUM 1.3 mg/dL (1.5-2.7); POTASSIUM 4.2 mmol/L (3.5-5.1); SODIUM 129 mmol/L (136-145); TCO2 19 mmol/L (25-35); TOTAL BILIRUBIN 0.54 mg/dL (0.20-1.00); TOTAL PROTEIN 6.2 g/dL (6.3-8.3)
[2019-06-17] MEDS: MAGNESIUM SULFATE 2 GM/S.W.I. 2 GM/50 ML IVPB IV SCH ×2 (15:08→21:09)
--- NOTE | 2019-06-17 15:09 | PROGRESS NOTE ---
DATE: 06/17/2019 INTERVAL HISTORY: No acute events overnight. SUBJECTIVE: Ms. Mercado is complaining of diffuse body ache, especially left shoulder and neck pain. We discussed about various causes which can cause mechanical fall. We discussed about heart murmur. We discussed about low sodium. Her family is at bedside. VITAL SIGNS: Temperature 97.8 degrees, pulse 60, respiratory rate 16, blood pressure 105/64. She is saturating 100% on room air. PHYSICAL EXAMINATION: General: Not in acute distress. HEENT: Oral cavity is moist. Lungs: Air entry bilaterally equal. No wheeze, rhonchi, crackles. Cardiovascular: S1, S2 normal. Systolic crescendo decrescendo murmur affecting right second intercostal space without any radiation. No rub or gallop. Abdomen: Obese, soft, nontender. Extremities: She has bilateral lower extremity edema extending up to midshin level. Neurologic: She is alert and oriented x3. LABS: Suggestive of WBC of 8.1, hemoglobin 12.7, platelet of 275,000. She does have a rise in her sodium to 129. Her chloride improved to 95. She denies any nausea or vomiting. She does have hypomagnesemia with magnesium of 1.4 which is currently being repleted. Her urine osmolality was low. Her urine sodium was high, meaning she has been making dilute urine. Her serum osmolality was also low. MICROBIOLOGY: No new data. IMAGING: No new imaging. ASSESSMENT AND PLAN: 1. Fall. Differential diagnosis of fall could include polypharmacy with use of multiple sedative medications. She is listed to be taking tramadol, trazodone, and Depakote. She also has an aortic stenosis like murmur. Though she denies any syncope, hemodynamically significant aortic stenosis needs to be ruled out. Significant hyponatremia could have contributed to it as well. She did not have hypoglycemia. I will continue physical therapy. She does not have any acute fracture. 2. Hyponatremia. She does have hypoalbuminemia and possibly bilateral pedal edema because of that. Her urine osmolality is low suggesting she may be producing dilute urine. Her TSH was normal. Cortisol has not been drawn which I will order. Divalproex could also be a contributing factor behind her hyponatremia. She denies any vomiting or diarrhea. I will stop intravenous fluids and follow up serum sodium level. I will also replete hypomagnesemia with intravenous magnesium. 3. History of insulin-dependent diabetes mellitus type 2 and essential hypertension. There was no mention of atrial fibrillation. I will continue her diltiazem and add back carvedilol depending on her blood pressure. I will continue her on sliding scale insulin and frequent blood glucose checks. 4. History of recurrent urinary tract infection with bladder spasm. I will continue her home fesoterodine and oxybutynin. 5. Hypothyroidism. Continue home dose of levothyroxine. 6. Fibromyalgia, severe osteoarthritis, bilateral knee replacement, and shoulder surgery leading to chronic pain. Continue tramadol as needed. DISPOSITION: I will continue to monitor patient inside the hospital. Plan of care discussed with the patient and her family at bedside. Their questions have been answered. cc: Mingo Melara MD
--- NOTE | 2019-06-17 20:18 | Diag Imaging Result Doc PS360 ---
EXAM: SHOULDER-LEFT 06/17/2019 HISTORY: R/o fracture TECHNIQUE: Three views portable at 2007 COMMENT: There is severe degenerative change in the acromioclavicular joint. There is no evidence of fracture or dislocation. IMPRESSION: Osteoarthritis. Electronically signed by Gregory Desai 06/17/2019 8:15 PM
[2019-06-17] MEDS: SINGULAIR PO SCH (20:40)
[2019-06-17] MEDS: MELATONIN PO SCH (20:40)
[2019-06-17] MEDS: DITROPAN XL PO SCH (20:40)
[2019-06-17] MEDS ORDERED: DESYREL PO SCH (21:00)
[2019-06-18] MEDS: MAGNESIUM SULFATE 2 GM/S.W.I. 2 GM/50 ML IVPB IV SCH (00:31)
[2019-06-18] MEDS: TOVIAZ PO SCH ×2 (00:31→21:42)
[2019-06-18] MEDS: HUMULIN R SUBQ SCH ×4 (06:21→21:44)
[2019-06-18] MEDS: PEPCID PO SCH (06:21)
[2019-06-18] MEDS: SYNTHROID PO SCH (06:21)
[2019-06-18] MEDS: ZYRTEC PO SCH (08:47)
[2019-06-18] MEDS: SYSTANE EYE DROPS BOTH EYES SCH ×2 (08:47→21:41)
[2019-06-18] MEDS: ISOPTIN SR PO SCH ×2 (08:47→21:42)
[2019-06-18] MEDS: DEPAKOTE SPRINKLE PO SCH ×2 (08:47→21:41)
--- NOTE | 2019-06-18 12:57 | ECHO REPORT ---
ORDER DATE: 06/17/2019 INDICATION: Evaluate for aortic stenosis and LV dysfunction. FINDINGS: 1. Right atrium appears normal in size. 2. Trace tricuspid regurgitation. RV systolic pressure of 37. 3. Normal RV size and systolic function. 4. No significant pulmonic insufficiency. 5. Normal left atrial size with a volume index of 27. 6. No mitral valve prolapse. No mitral stenosis. No significant mitral regurgitation identified. 7. Normal LV size, end-diastolic dimension of 4.4 cm. Normal wall thicknesses with a posterior and interventricular septal wall thickness 1 cm each. Normal LV systolic function. Estimated EF of 60% with normal wall motion. 8. Aortic valve is calcified with restriction of motion consistent with mild aortic stenosis. Peak gradient across valve is 23 with a mean of 11. The valve area is 1.2 cm2 by the continuity equation. This would suggest [id number] aortic stenosis. No aortic insufficiency. 9. Aorta appears normal of visualized segments. 10. No pericardial effusion seen. 11. Normal diastolic function. 12. The IVC does appear to be slightly dilated but does seem to collapse well with inhalation. cc: MD Mingo Ellis MD
[2019-06-18 16:59] LABS: AGAP 14; BUN 11 mg/dL (8-22); CALCIUM 8.5 mg/dL (8.8-10.2); CHLORIDE 89 mmol/L (98-107); COSMO 251; CREATININE 0.8 mg/dL (0.5-0.9); ESTIMATED GFR > 60; GLUCOSE 106 mg/dL (70-104); MAGNESIUM 1.8 mg/dL (1.5-2.7); POTASSIUM 5.1 mmol/L (3.5-5.1); SODIUM 125 mmol/L (136-145); TCO2 22 mmol/L (25-35)
[2019-06-18] MEDS ORDERED: ZOSTRIX TOP PRN (17:31)
--- NOTE | 2019-06-18 18:23 | PROGRESS NOTE ---
DATE: 06/18/2019 INTERVAL HISTORY: No acute events overnight. Her echocardiogram had mild to moderate aortic stenosis. Shoulder x-ray had arthritis. SUBJECTIVE: Mr. Martin is denying new complaints. She denies any chest pain or shortness of breath. She continues to have neck pain and stiffness. Her sodium has been largely within acceptable range. VITALS: Temperature of 98.4, pulse 57, respiratory 18, blood pressure 130/58, saturating 98% on room air. PHYSICAL EXAMINATION: General: Not in acute distress. HEENT: Oral cavity is moist. Lungs: Air entry bilaterally equal. No wheeze or rhonchi. She has inspiratory crackles, infrascapular region. Cardiovascular: S1, S2 normal. No murmur, rub or gallop. Abdomen: Soft, nontender. Extremities: She has bilateral lower extremity edema. Neurologic: She is alert and oriented x3. LABS: No CBC today. BMP suggestive of sodium of 125, chloride of 89, BUN 11, creatinine 0.8. Microbiology: No new data. Shoulder x-ray had osteoarthritis on the left side. Echocardiogram had [id number] aortic stenosis without any aortic insufficiency, with normal ejection fraction. ASSESSMENT AND PLAN: 1. Fall due to polypharmacy and use of multiple sedative medications including tramadol, trazodone. She is also taking Depakote. Continue physical therapy. 2. Generalized body ache, neck pain, and arthritis with history of fibromyalgia. 3. The patient also has a history of mood disorder, the details of which she could not tell me. I will keep her on medications of Depakote and tramadol, and will start her on topical capsaicin. 4. Hyponatremia. She has been producing a large amount of urine, making syndrome of inappropriate diuretic hormone less likely. There is no congestive heart failure, though she does have pedal edema. She also had hypoalbuminemia. However, she is diuresing well at the moment, so I will hold off on giving any Lasix. I will keep her on water restriction and follow up with serial sodium levels. 5. Previously she has had worsening of her psychiatric illness when her psychiatric medications were held, so I am continuing to keep her on Depakote, and I will continue to hold trazodone. 6. History of insulin-dependent diabetes mellitus type 2 and essential hypertension. Continue home diltiazem and sliding-scale insulin. Her blood glucose has been within acceptable range. 7. History of recurrent urinary tract infection with bladder spasm. Continue home fesoterodine and oxybutynin. 8. Hypothyroidism. Continue home levothyroxine. 9. Fibromyalgia, severe osteoarthritis, bilaterally knee replacement, and shoulder surgery, leading to chronic pain. Continue tramadol as needed. DISPOSITION: I will monitor patient inside the hospital for 24 hours and watch her sodium level. Plan of care discussed with the patient. All questions have been answered. cc: Mingo Melara MD
[2019-06-18] MEDS: SINGULAIR PO SCH (21:41)
[2019-06-18] MEDS: MELATONIN PO SCH (21:41)
[2019-06-18] MEDS: DITROPAN XL PO SCH (21:43)
[2019-06-18] MEDS: ULTRAM PO PRN (22:02)
[2019-06-19] MEDS: HUMULIN R SUBQ SCH ×4 (06:26→21:11)
[2019-06-19] MEDS: PEPCID PO SCH (06:36)
[2019-06-19] MEDS: SYNTHROID PO SCH (06:36)
[2019-06-19] MEDS ORDERED: BLISTEX MEDICATED BERRY LIP BALM TOP PRN (06:40)
[2019-06-19 08:15] LABS: AGAP 13; BUN 10 mg/dL (8-22); CALCIUM 8.7 mg/dL (8.8-10.2); CHLORIDE 90 mmol/L (98-107); COSMO 255; CREATININE 0.6 mg/dL (0.5-0.9); ESTIMATED GFR > 60; GLUCOSE 103 mg/dL (70-104); MAGNESIUM 1.5 mg/dL (1.5-2.7); POTASSIUM 4.3 mmol/L (3.5-5.1); SODIUM 127 mmol/L (136-145); TCO2 24 mmol/L (25-35)
[2019-06-19] MEDS: ISOPTIN SR PO SCH ×2 (10:38→20:58)
[2019-06-19] MEDS: DEPAKOTE SPRINKLE PO SCH ×2 (10:39→20:57)
[2019-06-19] MEDS: ZYRTEC PO SCH (10:39)
[2019-06-19] MEDS: SYSTANE EYE DROPS BOTH EYES SCH ×2 (10:39→20:58)
[2019-06-19] MEDS: MAGNESIUM SULFATE 2 GM/S.W.I. 2 GM/50 ML IVPB IV SCH ×3 (10:56→17:22)
[2019-06-19] MEDS ORDERED: LOVENOX SUBQ SCH (14:45)
[2019-06-19] MEDS ORDERED: LASIX PO ONE (16:00)
--- NOTE | 2019-06-19 16:09 | DISCHARGE SUMMARY ---
ADMISSION DATE: 06/16/2019 DISCHARGE DATE: DATE OF DISCHARGE: Likely 06/20/2019 DISCHARGE DISPOSITION: Back to [facility] nursing [facility]. DISCHARGE CONDITION: At the time of dictation patient is hemodynamically stable alert and oriented x3. Her sodium has been increasing. She has been working with physical therapy. We reviewed fluid restriction however she said that she needs water to swallow. DISCHARGE DIAGNOSIS: 1. Fall due to polypharmacy and use of multiple psychoactive medications as well as possible hyponatremia. 2. Hyponatremia with likely hypervolemic hyponatremia in the setting of possibly polydipsia as well as component of medication induced hyponatremia with trazodone and Depakote being the most likely culprits. 3. Neck pain after fall likely musculoskeletal. 4. Hypomagnesemia. OTHER DIAGNOSES: 1. History of mood disorder. 2. History of fibromyalgia. 3. History of insulin-dependent diabetes mellitus. 4. Essential hypertension. 5. History of recurrent urinary tract infection. 6. Recurrent history of overactive bladder and bladder spasm. 7. Hypothyroidism. 8. Severe osteoarthritis with bilateral knee replacement and shoulder surgeries leading to chronic pain. 9. History of anxiety and depression. DISCHARGE MEDICATIONS: 1. Atorvastatin 10 mg at nighttime. 2. Montelukast 10 mg at nighttime. 3. Acetaminophen extra strength 500 mg every 6 hours as needed. 4. Depakote 300 mg b.i.d. 5. Albuterol ipratropium nebulization 3 mL inhaled every 4 hours as needed for shortness of breath. 6. Myrbetriq 50 mg daily. 7. Famotidine 20 mg daily. 8. Phenazopyridine 100 mg t.i.d. as needed for dysuria. 9. Refresh Celluvisc 2 drops both eyes b.i.d. 10. Levothyroxine 50 mcg at nighttime . 11. Toviaz 4 mg tab daily. 12. Tramadol 50 mg b.i.d. 13. Verapamil 240 mg b.i.d. 14. Estradiol 10 mcg tablet 1 suppository at bedtime every Saturday and Saturday for hormone imbalance. 15. Cetirizine 10 mg daily. 16. Melatonin 10 mg at nighttime. 17. Carvedilol 25 mg every 12 hours. 18. Allopurinol 100 mg daily. DISCHARGE INSTRUCTION: 1) Follow up Sodium level in 72 hours. 2) Ms Martin's blood glucose has been acceptable without insulin and her Insulin has been held. 3) Establish care with a psychiatrist and discuss about changing medications which could potentially contribute to Hyponatremia including Depakote and Trazodone. VITALS: At time of current dictation temperature 99.1 degrees, pulse 65, respiratory 18, blood pressure 142/86, saturating 97% room air. PHYSICAL EXAMINATION: Not in acute distress. Oral cavity is moist. Air entry bilaterally equal. No wheeze, rhonchi, crackles. S1, S2 normal. Patient has a systolic murmur crescendo decrescendo affecting right 2nd intercostal space. No rub or gallop. Abdomen: Soft, nontender. She has mild lower extremity edema. She is alert and oriented x3 . Input, output since hospital admission suggests -3.7 L. SIGNIFICANT LABS: At the time of this dictation WBC 8.1, hemoglobin 12.7, platelet 275,000. Sodium on presentation was 120 which improved to 127 at the time of discharge, chloride is 90, BUN is 10, creatinine 0.6, blood glucose 189, magnesium is 1.5 which is currently being repleted with intravenous magnesium. No microbiology data. IMAGING: During hospital admission head cervical spine CT on presentation did not an acute injury. Patient had left maxillary sinusitis. Right hand x-ray did not have any acute injury. Right wrist x-ray did not have any acute injury. Chest x-ray did not have an acute cardiopulmonary process. Right shoulder did not have any acute injury. Left shoulder had osteoarthritis. Echocardiogram had mild to moderate aortic stenosis without any aortic insufficiency ejection fraction of 60% with normal wall motion. Electrocardiogram on presentation had sinus bradycardia otherwise it was normal EKG. HOSPITAL COURSE SUMMARY: Ms. Martin 73 years old lady who presented on 06/16/2019 with chief complaints of weakness and fall. Patient at baseline lives in intermediate facility and uses a walker for ambulation. She had gone to [place] and [place] she was trying to sit down into the chair while she was standing. She started feeling weak and that made her to fall down. She did not hit her head after fall but after she started having diffuse pain around her body especially neck, shoulder girdle region and she was also having headache. She did not lose consciousness so because of fall and weakness patient decided to come to the emergency room. In the emergency room, patient had bradycardia with heart rate of 54. CT scan of body images were unremarkable for any acute head injury or cervical spine injury. Her initial lab had suggested sodium of 120 so hospitalist team was consulted further management. The patient was admitted and urine studies and further review of medication was performed. The patient's cortisol and TSH were within normal limit. Her urine osmolality was 205 and urine random sodium was 38. On review of the medication it was noted patient was on Depakote and trazodone which potentially could cause hyponatremia. The patient previously has had worsening of her psychiatric illnesses when her psychiatric medications were changed so a conservative approach was practiced and she was continued on her Depakote and she was started on fluid restriction and gentle diuresis. The patient had significant urine output and she had more than 3 L of urine output for consecutive 48 hours and her sodium gradually increased from 120 to 127 at the time of this dictation. Patient is feeling stronger and physical therapy was also continued so it was decided to discharge her. The patient was counseled about having a followup appointment with psychiatrist to have a proper medication reconciliation. She should also have a discussion about possibly discontinuing Depakote considering her hyponatremia. TIME SPENT: More than 30 minutes. cc: Mingo Melara MD MTDD
--- NOTE | 2019-06-19 17:32 | PROGRESS NOTE ---
DATE: 06/19/2019 INTERVAL HISTORY: No acute events overnight. SUBJECTIVE: Mr. Martin is now feeling better. Complains of some neck pain. We discussed about improving sodium level. I answered all of her questions. VITAL SIGNS: Temperature 98.7 degrees, pulse 62, respiratory 18, blood pressure 136/60, saturating 99% room air. PHYSICAL EXAMINATION: General: Not in acute distress. HEENT: Oral cavity is moist. Respiratory: Air entry bilaterally equal. No wheeze or rhonchi. She has mild inspiratory crackles infrascapular region both lungs. Cardiovascular: S1, S2 normal. Systolic crescendo- decrescendo murmur best heard at right second intercostal space without any radiation. No rub or gallop. Abdomen: Soft, nontender. Extremity: She has bilateral lower extremity edema, more pronounced on the left side which is decreasing. She is alert and oriented x3. Input and output suggests -3.1 L urine so far. LABS: Suggestive of sodium of 127, chloride 90, BUN is 10, creatinine 0.6. Her magnesium is 1.5, which is currently being repleted. No new microbiological data. No new imaging. ASSESSMENT: 1. Fall due to polypharmacy with medications including tramadol, trazodone, fesoterodine, Depakote, oxybutynin among others. Hyponatremia could have also contributed to fall. 2. Hyponatremia in the setting of use of trazodone, and Depakote. The patient has also been drinking a lot of water to help her swallow food which could be a contributing factor. 3. Generalized body ache, neck pain and arthritis with history of fibromyalgia, severe osteoarthritis, bilateral knee replacement and shoulder surgery leading to chronic pain. 4. History of mood disorder. The patient has been on multiple medications however she denied any anxiety or depression or bipolar mood disorder. 5. History of insulin-dependent diabetes mellitus, currently well controlled on sliding scale. 6. History of essential hypertension Currently acceptable. PLAN: I will give her additional dose of Lasix since I think that the patient has hypervolemic hyponatremia. Though her echocardiogram was unremarkable she did have hypoalbuminemia on presentation. I will follow up with sodium level tomorrow. Previously, patient has had worsening of psychiatric issues when her mood disorder medications were changed so I am continuing her on Depakote. Though the medication reconciliation states she has been on ziprasidone in the senior living records that I saw, was not supposed to be on ziprasidone. DISPOSITION: I will watch the patient overnight to get a repeat sodium level tomorrow. Based on that, I will anticipate discharge in next 24 hours. Patient is in agreement with the plan. cc: Mingo Melara MD MTDD
[2019-06-19] MEDS: MAG-OX PO SCH ×2 (17:52→20:58)
[2019-06-19] MEDS: DUONEB (A & A) INH PRN ×2 (20:16→23:35)
[2019-06-19] MEDS: TOVIAZ PO SCH (20:57)
[2019-06-19] MEDS: DITROPAN XL PO SCH (20:57)
[2019-06-19] MEDS: MELATONIN PO SCH (20:58)
[2019-06-19] MEDS: SINGULAIR PO SCH (20:58)
[2019-06-19] MEDS ORDERED: MYRBETRIQ E.R. PO SCH (21:00)
[2019-06-19] MEDS: ULTRAM PO PRN (23:49)
[2019-06-20] MEDS: DUONEB (A & A) INH PRN ×2 (03:26→07:54)
[2019-06-20] MEDS: PEPCID PO SCH (05:45)
[2019-06-20] MEDS: SYNTHROID PO SCH (05:45)
[2019-06-20] MEDS: HUMULIN R SUBQ SCH ×2 (06:29→12:28)
[2019-06-20 08:02] VITALS: BP 146/70
[2019-06-20 08:21] LABS: ESTIMATED GFR > 60
[2019-06-20 08:41] LABS: AGAP 14; BUN 7 mg/dL (8-22); CALCIUM 9.1 mg/dL (8.8-10.2); CHLORIDE 85 mmol/L (98-107); COSMO 248; CREATININE 0.6 mg/dL (0.5-0.9); GLUCOSE 103 mg/dL (70-104); POTASSIUM 3.8 mmol/L (3.5-5.1); SODIUM 124 mmol/L (136-145); TCO2 25 mmol/L (25-35)
[2019-06-20] MEDS: SYSTANE EYE DROPS BOTH EYES SCH (09:25)
[2019-06-20] MEDS: ZYRTEC PO SCH (09:25)
[2019-06-20] MEDS: DEPAKOTE SPRINKLE PO SCH (09:25)
[2019-06-20] MEDS: ISOPTIN SR PO SCH (09:26)
[2019-06-20] MEDS: MAG-OX PO SCH (09:26)
--- NOTE | 2019-06-20 11:45 | PROGRESS NOTE ---
DATE: 06/20/2019 INTERVAL HISTORY: No acute events overnight. SUBJECTIVE: Ms. Martin denies any complaint. She denies any chest pain, shortness of breath, nausea, vomiting, abdominal pain. We discussed about possible contributors of hyponatremia, including her use of Depakote. We discussed about water restriction. We discussed about outpatient psychiatric evaluation and having a discussion about discontinuing Depakote as tolerated. She understood it. We also discussed about the fact that she has not been receiving insulin because her blood sugars were normal. VITALS: Temperature 98 degrees, pulse 87, respiratory 18, blood pressure 146/70, saturating 95% on room air. PHYSICAL EXAMINATION: General: Not in acute distress. Oral cavity: Moist. Lungs: Air entry bilaterally equal. No wheeze, rhonchi, crackles. Heart: S1, S2 normal. Systolic murmur affecting right second intercostal space. No rub or gallop. Abdomen: Soft, nontender. Extremities: Mild bilateral lower extremity edema. Neurologic: She is alert and oriented x3. LABS: Suggestive of sodium of 124, chloride of 85. MICROBIOLOGY: No new data. X-RAYS: No new imaging. ASSESSMENT AND PLAN: 1. Mechanical fall without any syncope or head injury. 2. Hyponatremia in the setting of use of trazodone, ziprasidone, and Depakote. Also, patient has been drinking a large amount of water to help her swallow because of dysphagia. Her Depakote was continued since previously she has had worsening of her mood disorder, and I advised her to have outpatient follow up with her psychiatrist. 3. Generalized body ache, neck pain, fibromyalgia, severe osteoarthritis, bilateral knee pain and chronic pain disorder. 4. History of dysphagia requiring endoscopy and dilatation according to history. 5. History of mood disorder. 6. History of insulin-dependent diabetes mellitus. 7. History of essential hypertension. Her sodium level has been stable since admission, around 125. She has not had sodium levels go down. She has not had any further hyponatremia, and looking at the previous record, her hyponatremia appears chronic. We discussed about having outpatient followup. She denies any hyponatremia-related symptoms like dizziness or confusion, and she is deemed appropriate for discharge back to the long term. She is in agreement with the plan. cc: Mingo Melara MD
== END 2019-06-20 12:29 | DRG 641 ==
LOC: SUPCPDRO → ED 15:26 → 3N 21:27 → SUATTDRO 21:27
PROVIDERS: ATTEND Internal Medicine

== ENCOUNTER 2019-06-29 18:25 | Inpatient (IN) ==
[2019-06-29] MEDS ORDERED: NS 1,000 ML IV ONE ×2 (19:56→21:58)
--- NOTE | 2019-06-29 20:47 | Diag Imaging Result Doc PS360 ---
CHEST-PORTABLE - 06/29/2019 INDICATION: AMS COMPARISON: 06/16/2019 FINDINGS: There is some scattered linear atelectasis in the left lung base. Otherwise the lungs are clear. Heart size remains borderline enlarged. Lung volumes remain low. IMPRESSION: No specific abnormality. Electronically signed by Hernando Renteria 06/29/2019 8:44 PM
[2019-06-29 20:53] LABS: BASO# 0.06 X1000 (0.0-0.2); BASO% 0.6 % (0.0-0.8); EOS# 0.11 X1000 (0.0-0.7); HEMATOCRIT 41.1 % (37.0-47.0); HEMOGLOBIN 13.6 g/dL (12.0-16.0); IMM GRAN# 0.06 X1000 (0.0-0.04); IMM GRAN% 0.6 % (0.0-0.5); LYMPH# 2.28 X1000 (1.2-3.4); MCH 29.2 PG (27-31); MCHC 33.1 g/dL (33-37); MCV 88.4 FL (81-99); MONO# 1.71 X1000 (0.11-0.59); MONO% 15.8 % (1.7-9.3); MPV 10.3 FL (7.4-10.4); NEUT# 6.63 X1000 (1.4-6.5); PLT 160 X1000 (130-400); RBC 4.65 XMIL (4.2-5.4); RDW 13.7 % (11.5-14.5); WBC 10.85 X1000 (4.8-10.8)
--- NOTE | 2019-06-29 21:23 | Diag Imaging Result Doc PS360 ---
CT HEAD W/O CONTRAST - 06/29/2019 INDICATION: encephalopathy COMPARISON: 06/16/2019 FINDINGS: There is stable severe opacification of the left maxillary sinus indicating chronic sinusitis. There is some stable mild patchy cerebral white matter chronic microvascular ischemia. No intracranial mass or hemorrhage. The skull is intact. IMPRESSION: No acute process. This exam was performed using automated exposure control, adjustment of mA or kV according to patient size, and/or use of iterative reconstruction technique Electronically signed by Hernando Renteria 06/29/2019 9:20 PM
[2019-06-29 21:28] LABS: AGAP 15; ALB/GLOB RATIO 1.3; ALBUMIN 3.7 g/dL (3.5-5.0); ALKALINE PHOSPHATASE 101 U/L (32-104); BUN 8 mg/dL (8-22); CALCIUM 9.3 mg/dL (8.8-10.2); CHLORIDE 94 mmol/L (98-107); COSMO 264; CREATININE 0.6 mg/dL (0.5-0.9); ESTIMATED GFR > 60; GLUCOSE 124 mg/dL (70-104); GOT 26 U/L (10-30); GPT 15 U/L (10-36); LIPASE 12 U/L (13-60); POTASSIUM 4.3 mmol/L (3.5-5.1); SODIUM 132 mmol/L (136-145); TCO2 23 mmol/L (25-35); TOTAL BILIRUBIN 0.79 mg/dL (0.20-1.00); TOTAL PROTEIN 6.6 g/dL (6.3-8.3)
[2019-06-29 21:41] LABS: URINE SOURCE CATH
[2019-06-29 21:55] LABS: UR AMPHETAMINES QUAL NONE DETECTED (NONE DETECT); UR BARBITUATES QUAL NONE DETECTED (NONE DETECT); UR BENZODIAZEPIN QUAL NONE DETECTED (NONE DETECT); UR CANNABINOIDS QUAL NONE DETECTED (NONE DETECT); UR COCAINE QUAL NONE DETECTED (NONE DETECT); UR METHADONE QUAL NONE DETECTED (NONE DETECT); UR OPIATES QUAL NONE DETECTED (NONE DETECT); UR OXYCODONE QUAL NONE DETECTED (NONE DETECT); UR PCP QUAL NONE DETECTED (NONE DETECT)
--- NOTE | 2019-06-29 21:59 | PROVIDER DOCUMENTATION ---
This chart was entered by Merced Mclean Scribe, acting as scribe for Toshia Vargas MD. HPI-General Adult - General Chief Complaint: Altered Mental Status Stated Complaint: AMS Time Seen by Provider: 06/29/19 19:07 Source: patient Unable to obtain history due to:: altered Allergies/Adverse Reactions: Patient Allergies Allergy/AdvReac Type Severity Reaction Status Date / Time Neuromuscular Blockers, AdvReac Severe SWELLING Verified 06/29/19 19:46 Steroidal [Steroidal Neuromuscular Blockers] Home Medications: Home Medication List Medication Instructions Recorded Confirmed Last Taken Type Levothyroxine [Synthroid] 50 microgm PO HS 04/25/13 06/29/19 05/06/18 History Verapamil HCl [Verapamil ER] 240 mg PO BID 04/25/13 06/29/19 05/07/18 09:14 History Montelukast [Singulair] 10 mg PO QHS 07/12/17 06/29/19 05/06/18 21:21 History Carvedilol [Coreg] 25 mg PO Q12HR tablet 05/07/18 06/29/19 05/07/18 09:14 Rx Allopurinol [Zyloprim] 100 mg PO DAILY #30 tab 06/06/18 06/29/19 Unknown Rx Melatonin 10 mg PO QHS #0 tablet 06/06/18 06/29/19 Unknown Rx Nystatin Powder [Mycostatin Powder] 1 applic TOP BID #1 bottle 06/06/18 06/29/19 Unknown Rx ATORVAstatin [Lipitor] 1 tab PO QHS 06/16/19 06/29/19 Unknown History Acetaminophen [Acetaminophen Extra 1 tab PO Q6H PRN 06/16/19 06/29/19 Unknown History Strength] Carboxymethylcellulose Sodium 2 drp BOTH EYES BID 06/16/19 06/29/19 Unknown History [Refresh Celluvisc] Cetirizine [Zyrtec] 1 tab PO DAILY 06/16/19 06/29/19 Unknown History Divalproex [Depakote Sprinkle] 300 mg PO BID 06/16/19 06/29/19 Unknown History Estradiol [Yuvafem] 1 supp VAG DIRECTED 06/16/19 06/29/19 Unknown History Famotidine [Pepcid] 1 tab PO DAILY 06/16/19 06/29/19 Unknown History Fesoterodine E.r [Toviaz] 1 tab PO DAILY 06/16/19 06/29/19 Unknown History Ipratropium/Albuterol Sulfate 3 ml INH Q4H PRN 06/16/19 06/29/19 Unknown History [Iprat-Albut 0.5-3(2.5) mg/3 ml] Mirabegron [Myrbetriq] 1 tab PO DAILY 06/16/19 06/29/19 Unknown History Phenazopyridine [Pyridium] 2 tab PO TID PRN 06/16/19 06/29/19 Unknown History Tramadol [Ultram] 1 tab PO BID 06/16/19 06/29/19 Unknown History - History of Present Illness -Gen Adult Nature of Presenting Problems: Pt is a 73 yom who presents to the ED via EMS from [facility]. Per [facility] patient was normal yesterday and became altered today. Reports hx of dementia. Pt is a poor historian and replies "no" when asked questions. Pt is A&Ox0 an donly contiues to say no and flail her hands in the air. Per nurse patient reported Dysuria. Review of Systems - Adult - REVIEW OF SYSTEMS - ADULT ROS:: limited per condition (Patient told nurse that it hurts with urination.) Constitutional: reports: see HPI Eyes: reports: see HPI Ears, Nose, Mouth & Throat: reports: see HPI Cardiovascular: reports: see HPI Respiratory: reports: see HPI Gastrointestinal: reports: see HPI Genitourinary: reports: see HPI, dysuria Musculoskeletal: reports: see HPI Integumentary: reports: see HPI Neurological: reports: see HPI, other (AMS) Psychiatric: reports: see HPI Endocrine: reports: see HPI Hematologic/Lymphatic: reports: no symptoms reported Allergic/Immunologic: reports: no symptoms reported All Other Systems: Reviewed and Negative Past History - Adult - PAST MEDICAL HISTORY-ADULT Review of Records: reports: Old Records Reviewed, Nursing Assessment Review, Medications Reviewed, Social history reviewed & non-contributory. Major Childhood Illnesses: reports: denies history Cardiovascular: reports: HTN, hyperlipidemia Respiratory: reports: asthma, sleep apnea, other (sleep apnea) Gastrointestinal: reports: diverticulosis, GERD Obstetrical/Gynecological: reports: other (R breast CA) Genitourinary: reports: chronic UTI's Musculoskeletal: reports: arthritis (OA), chronic pain, fibromyalgia, other (bursitis L knee) Neurological: reports: CVA, TIA Psychiatric: reports: psychiatric problems Endocrine/Immune: reports: Diabetes, thyroid disorder Other Conditions: reports: denies history, cataract/glaucoma, MRSA - PRIOR SURGERIES/PROCEDURES Surgical/Procedure History: reports: hysterectomy, tonsillectomy, orthopedic (extremity) (R shoulder), joint replacement (knee), breast (mastectomy), other (cataract removal, lymphectomy, cystohydro dilation) - IMMUNIZATION STATUS Childhood Immunizations: See Nurse Assessment Flu Vaccine: See Nurse Assessment - FAMILY HISTORY Family History: reviewed, not pertinent - SOCIAL HISTORY Living Situation: care facility Physical Exam-General - PHYSICAL EXAM-ADULT Initial Vital Signs Reviewed: Yes - CONSTITUTIONAL General Appearance: alert, no apparent distress, other (flailing hands in the air yelling "no") - EYES Eyes: PERRL/EOMI, pink conjunctivae - HEAD, EARS, NOSE, MOUTH & THROAT HENMT: normocephalic/atraumatic, other (dry mucous membranes) - NECK Neck: full range of motion, supple, normal inspection - RESPIRATORY Respiratory: chest non-tender, normal breath sounds, no respiratory distress, no accessory muscle use. negative: lungs clear (mildly decreased lung sounds) - CARDIOVASCULAR Cardiovascular: normal peripheral pulses, regular rate, rhythm, systolic murmur (in all 4 quadrants). negative: no murmur - GASTROINTESTINAL (ABDOMEN) Abdominal Exam: normal bowel sounds, soft, tenderness (RLQ). negative: non tender - MUSCULOSKELETAL Extremity: normal range of motion, non-tender, normal inspection, no pedal edema , no calf tenderness - SKIN Integumentary: normal color, warm/dry - NEUROLOGIC Neurologic: grossly normal - PSYCHIATRIC Psych/Mental Status: disoriented x 3. negative: normal mood/affect, normal thought content, normal thought process, oriented x 3 Progress - PLAN OF CARE/RESULTS Progress/Plan/Lab Results: Vital Signs - 8 hr 06/29/19 19:33 Temperature 98.1 F Pulse Rate 73 Respiratory Rate 17 Blood Pressure 155/116 O2 Sat by Pulse Oximetry 97 Laboratory Results - last 24 hr 06/29/19 19:31 POC Glucose 168 H Orders Category Date Time Status CHEST-PORTABLE [RAD] Stat Exams 06/29/19 19:[address] HEAD W/O CONTRAST [CT] Stat Exams 06/29/19 19:52 Ordered BLOOD CULTURE [BLDCUL] Stat Lab 06/29/19 20:23 Ordered CBC WITH ELECTRONIC DIFF [HEME] Stat Lab 06/29/19 20:23 Ordered COMPREHENSIVE METABOLIC PANEL [CHEM] Stat Lab 06/29/19 19:52 Uncollected FREE T4 Stat Lab 06/29/19 19:55 Uncollected LACTATE, PLASMA [CHEM] Stat Lab 06/29/19 19:54 Uncollected LIPASE [CHEM] Stat Lab 06/29/19 19:52 Uncollected PRO B-NATRIURETIC PEPTIDE Stat Lab 06/29/19 19:54 Uncollected TSH Stat Lab 06/29/19 19:55 Ordered URINALYSIS W/POSS RFLX CULT [URINALYSIS] Stat Lab 06/29/19 19:52 Uncollected URINE DRUG SCREEN Stat Lab 06/29/19 19:52 Uncollected 0.9% Sodium Chloride Inj [Ns] 1,000 ml Med 06/29/19 19:56 Active IV 999 mls/hr Patient that appears very dry and labs indicating slight dehydration. Unknown what her baseline is. CT Head negative for anything acute. CXR negative for PNA. UA + for UTI. Spoke to Dr Leos marine propulsion technician for hospitalist and discussed OBS admission. Further orders to be placed by their team. Result Diagrams: 06/29/19 20:05 06/29/19 20:44 - XRAY 1 XRAY Study: Chest (CHEST-PORTABLE - 06/29/2019 INDICATION: AMS COMPARISON: 06/16/2019 FINDINGS: There is some scattered linear atelectasis in the left lung base. Otherwise the lungs are clear. Heart size remains borderline enlarged. Lung volumes remain low. IMPRESSION: No specific abnormality. Electronically signed by Hernando Renteria 06/29/2019 8:44 PM) - CT/MRI 1 CT Study: Head ( CT HEAD W/O CONTRAST - 06/29/2019 INDICATION: encephalopathy COMPARISON: 06/16/2019 FINDINGS: There is stable severe opacification of the left maxillary sinus indicating chronic sinusitis. There is some stable mild patchy cerebral white matter chronic microvascular ischemia. No intracranial mass or hemorrhage. The skull is intact. IMPRESSION: No acute process. This exam was performed using automated exposure control, adjustment of mA or kV according to patient size, and/or use of iterative reconstruction technique Electronically signed by Hernando Renteria 06/29/2019 9:20 PM) - CONSULTS/PCP/HOSPITALIST Notification #1 *Consult/PCP/Hospitalist*: Dr Leos Time Discussed: 22:15 Consult Disposition: Admit Departure - Departure Date of Disposition Decision: 06/29/19 Time of Disposition Decision: 22:15 DIAGNOSIS: Altered mental state, Hyponatremia, Dehydration, UTI (urinary tract infection) Disposition: ADMITTED INPATIENT 09 Certified Medical Emergency: Emergent Condition: Stable Referrals and Follow-Ups: Darvin Vega MD [Primary Care Provider] - - Critical Care Note This patient required my direct & personal management of CC.: No Attestation - Physician/ YOLANDE Attestation Patient care was provided by Advanced Practice Provider:: No The physician spent face to face time with patient:: Yes Advanced Practice Provider documentation review:: Supervising physician onsite and consulted in the evaluation and care of this patient. The physician did have a face to face encounter with the patient. This chart was documented by the indicated scribe, (Merced Mclean Scribe) and accurately reflects the services I performed and decisions made by me, Toshia Vargas MD, as attested by the provider's signature.
[2019-06-29 22:35] LABS: BILIRUBIN URINE NEGATIVE (NEGATIVE); BLOOD URINE NEGATIVE (NEGATIVE); COLOR YELLOW; GLUCOSE URINE NEGATIVE (NEGATIVE); KETONE URINE NEGATIVE (NEGATIVE); LEUKOCYTES URINE LARGE (NEGATIVE); NITRITE URINE NEGATIVE (NEGATIVE); PH URINE 7.5; PROTEIN URINE NEGATIVE (NEGATIVE); SP GRAVITY URINE 1.009; TURBIDITY URINE HAZY (CLEAR); UROBILINOGEN URINE 2 mg/dL (NORMAL)
[2019-06-29 22:36] LABS: UR EPITHELIAL CELLS <10 /HPF (<10); URINE BACTERIA 1+ /HPF; URINE RBC <10 /HPF (<10); URINE WBC TNTC /HPF (<10)
[2019-06-29] MEDS ORDERED: ROCEPHIN 1 GM in NS 50 ML IV SCH (23:00)
--- NOTE | 2019-06-29 23:43 | HISTORY AND PHYSICAL ---
PRIMARY CARE PHYSICIAN: Dr. Darvin Vega. CHIEF COMPLAINT: Altered mental status. HISTORY OF PRESENTING ILLNESS: A 71-year-old elderly female with a history of hypertension, CVA, hypothyroidism, diabetes mellitus type 2, depression and psychosis, who had presented to emergency department with worsening confusion over the past several days. When she presented to the emergency department she was moderately confused. She was not making any sense and her speech seemed somewhat pressured. She was evaluated in the emergency department, it was thought that possibly she had a UTI and maybe mild dehydration. Subsequently, it was thought that we would place her under observation for further evaluation and management. At the time of my examination, the patient's speech was somewhat garbled and was not making any sense and most of the history is obtained from family member. PAST MEDICAL HISTORY: Includes asthma, CVA, hypothyroidism, diabetes mellitus type 2, sleep apnea, GERD, hypertension, depression, hyperlipidemia. PAST SURGICAL HISTORY: Hysterectomy, right mastectomy, bilateral knee replacement, right shoulder repair, tonsillectomy, cataract surgery. ALLERGIES: Neuromuscular blockade and steroidal agents. CURRENT MEDICATIONS: Allopurinol 100 mg p.o. daily, atorvastatin 10 mg p.o. at bedtime, carvedilol 12.5 mg p.o. q.12 hours, Depakote 300 mg p.o. b.i.d., estradiol 1 suppository vaginally as directed, Pepcid 20 mg p.o. daily, levothyroxine 50 mcg p.o. at bedtime, mirabegron 50 mg 1 p.o. daily, Singular 10 mg p.o. daily, tramadol 50 mg p.o. b.i.d., verapamil 240 mg p.o. b.i.d. SOCIAL HISTORY: No history of smoking, alcohol or illicit drug use. She is at the [facility]. FAMILY HISTORY: No history of coronary disease. REVIEW OF SYSTEMS: Limited due to patient being confused and altered. PHYSICAL EXAMINATION: GENERAL: The patient is resting comfortably, but is moderately confused and her speech is somewhat pressured. VITAL SIGNS: Temperature 98.1 degrees, pulse 73, respirations 17, blood pressure 155/116. HEENT: Atraumatic, normocephalic. Extraocular movements intact. PERRLA. NECK: No masses. CHEST: Clear to auscultation. CARDIOVASCULAR: Regular rate and rhythm. ABDOMEN: Soft. Positive bowel sounds. EXTREMITIES: No edema. NEUROLOGIC: She is awake and arousable. Speech is somewhat garbled and not making any sense. GENITOURINARY: No bladder distention. SKIN: Warm. LABORATORIES AND STUDIES: WBC 10.85, hemoglobin 13.6, hematocrit 41.1, platelets 160,000. UA shows large leukocytes and +1 bacteria. Sodium 132, potassium 4.3, chloride 94, CO2 is 23, BUN is 8, creatinine 0.[address]; no acute process. Chest x-ray; no specific abnormality. ASSESSMENT: A 73-year-old female with a history of asthma, cerebrovascular accident, hypothyroidism, diabetes mellitus type 2, sleep apnea and depression who had presented to emergency department with several days history of confusion and garbled speech. She was evaluated in the emergency department, it was thought that possibly she had a UTI and mild dehydration. Subsequently, she will require admission for further management. ASSESSMENT: 1. Altered mental status multifactorial from possible dehydration to urinary tract infection to psychosis which led to her previous admission. 2. Urinary tract infection. 3. Mild dehydration. 4. Diabetes mellitus type 2. 5. Hypertension. 6. Sleep apnea. PLAN: 1. We will admit patient for observation. 2. Neuro checks. 3. Continue will check urine cultures. Start patient on IV antibiotics. 4. We will continue IV fluids. 5. Monitor blood glucose and put patient on sliding scale insulin regimen. 6. Monitor blood pressure resume antihypertensive agent. 7. We will restart patient back on a CPAP machine. 8. Put patient on DVT prophylaxis with SCDs. 9. We will continue to follow, reassess and make further recommendations based on clinical course. 10. We will obtain neurologic and psychiatric consults also. cc: Cody Leos MD [facility]
[2019-06-30] MEDS ORDERED: PYRIDIUM PO PRN (00:47)
[2019-06-30] MEDS ORDERED: ZOFRAN IV PRN (00:47)
[2019-06-30] MEDS: NS 1,000 ML IV SCH ×3 (06:33→16:51)
[2019-06-30] MEDS: PEPCID PO SCH (10:03)
[2019-06-30] MEDS: MYCOSTATIN POWDER TOP SCH ×2 (10:03→22:13)
[2019-06-30] MEDS: SYSTANE EYE DROPS OPH SCH ×2 (10:03→22:14)
[2019-06-30] MEDS: MYRBETRIQ E.R. PO SCH (10:03)
[2019-06-30] MEDS: ISOPTIN SR PO SCH ×2 (10:04→22:35)
[2019-06-30] MEDS: ZYLOPRIM PO SCH (10:04)
[2019-06-30] MEDS: TOVIAZ PO SCH (10:04)
[2019-06-30] MEDS: DEPAKOTE SPRINKLE PO SCH ×2 (10:11→22:15)
[2019-06-30] MEDS ORDERED: GEODON PO ONE (12:50)
--- NOTE | 2019-06-30 13:18 | PROGRESS NOTE ---
DATE: 06/30/2019 INTERVAL HISTORY: No acute events overnight. Mr. Martin was admitted for acute mental status changes. In the morning time, Ms. Martin appears alert but she exhibits some bizarre behavior and she keeps repeating the same words again and again and does not answer my questions appropriately, though she follows commands and allows physical examination. She denies any chest pain, shortness of breath. She states she is coughing, but when I asked her about the nature of her sputum she states pink and then she keeps on repeating the word pink like 10 or 15 times, but when I question her again she denies any cough, expectoration. VITALS: Temperature of 98.8 degrees, pulse 80, respiratory rate 16, blood pressure 148/86. She is saturating 99% room air. PHYSICAL EXAMINATION: General: She is not in acute distress. HEENT: Oral cavity is moist. Lungs: Air entry bilaterally equal. No wheeze, rhonchi, crackles. Cardiovascular: S1, S2 normal. No murmur, rub, or gallop. Abdomen: Soft, nontender. Extremities: She does not have any lower extremity edema. Neurologic: She is alert. She could tell me her name, but she is not able to participate in the encounter meaningfully. [place]S: [place] [address], hemoglobin 13.6, platelet 160,000. Sodium is 132, chloride 94, BUN 8, creatinine 0.6. She has pyuria. Urine toxicology was negative. Blood cultures and urine cultures in lab. Head CT on presentation was unremarkable. ASSESSMENT AND PLAN: 1. Acute encephalopathy could be related to acute cystitis without hematuria. I will keep her on intravenous ceftriaxone and follow up final blood culture and urine culture results. Her head CT was unremarkable. Her baseline cognitive dysfunction and psychiatric illness could also be contributing to her current presentation. 2. History of psychosis. I will continue her home Depakote, and start her on Geodon. Will appreciate further recommendation from [facility] as she may need inpatient psychiatric admission for current psychiatric illness. On my evaluation, she does appear to have abnormal behavior. In the past, she has had hyponatremia and Depakote could also be a contributing factor. I will appreciate psychiatrist recommendation about changing her regimen as appropriate. 3. Others. Continue atorvastatin for hyperlipidemia, famotidine for gastroesophageal reflux disease. Levothyroxine for hypothyroidism, fesoterodine, phenazopyridine for her bladder spasm, verapamil for hypertension, she also has history of fibromyalgia, diffuse osteoarthritis, and insulin-dependent diabetes mellitus for which I will continue her on pattern blood sugar and diabetic diet. DISPOSITION: I will continue to monitor patient inside the hospital as I further away [facility]. Plan of care discussed with the patient. Her questions have been answered. I will discuss plan of care with the nursing team. cc: Mingo Melara MD
--- NOTE | 2019-06-30 20:46 | NEUROLOGY CONSULTATION ---
DATE: 06/30/2019 REASON FOR CONSULTATION: Altered mental status. HISTORY OF PRESENT ILLNESS: This is a 73-year-old female with history of hypertension, reported stroke, diabetes, depression, and psychosis as well as hypothyroidism. She was admitted yesterday with worsening confusion over the last few days. History is from chart review as there is no family currently available and the patient is not able to tell me what happened. The patient lives at [facility]. The ER note states that she seemed normal today prior, but became altered afterwards. There is also a history of reported dementia. There is no report of witnessed seizure activity or new-onset focal weakness. I am not certain of her baseline. The patient was felt to be dehydrated and to likely have a urinary tract infection and she is being managed for that. Sodium was mildly low at 132. Blood glucose was mildly elevated at 124. Otherwise, the kidney function, liver function, and thyroid studies are within normal limits. Toxicology was negative. PAST MEDICAL HISTORY: Reported dementia, hypertension, stroke, hypothyroidism, type 2 diabetes, depression and psychosis, asthma, sleep apnea, GERD, hyperlipidemia, hysterectomy, right mastectomy, bilateral knee replacement, right shoulder repair, and cataract surgery. FAMILY HISTORY: Listed as no coronary disease. I was not able to obtain this from the patient. SOCIAL HISTORY: It is listed no smoking, alcohol, or illicits. She lives at [facility]. She reports not having children and not being . ALLERGIES LISTED: Neuromuscular blockers and steroidal agents. MEDICATIONS AN OUTPATIENT: Include allopurinol, atorvastatin, carvedilol, Depakote 300 mg p.o. b.i.d., estradiol, Pepcid, levothyroxine, mirabegron, Singulair, tramadol 50 mg p.o. b.i.d., and verapamil. REVIEW OF SYSTEMS: Unobtainable due to the patient's mental status. PHYSICAL EXAMINATION: Vital Signs: Afebrile, blood pressure 155/116 on arrival and current 165/78, pulse 69, respirations 16, and oxygen saturation 98% on room air. Neurologic: Miss Martin is sitting up in bed. She is awake and alert. She states her name. She answers hospital for multiple choice. She does not otherwise answer orientation questions. She repeats herself continuously various words during our interaction. At times it fluctuates and is less apparent. She follows most commands and participates with much of the exam. She seems mostly attentive. At times I need to redirect her though. Her behavior is unusual. I do not detect a definite language disturbance. I do not detect significant dysarthria. Pupils are equal and reactive. Gaze is conjugate. She has full lateral eye movements. Blinks to threat. Face is symmetric with equal activation. Tongue is midline. I could not visualize the palate. She seems to guard the right shoulder during examination. She also seems to express brief bouts of pain in various locations during strength testing. Her power appears to be symmetric and as best I can tell preserved in the limbs. It is limited somewhat by lack of continued participation. She performs [id number] with both hands and rapid alternating movements slowly with both hands symmetric. She is a little tremulous, but I do not detect asterixis or other obvious identifiable tremor. Reflexes are 1+ at the biceps and absent at the wrists, knees, and ankles. There is no clonus or plantar responses with excessive withdrawal. Appears downgoing. I did not test her gait. She responds to mild noxious sensory stimulus in all limbs equally. DIAGNOSTICS: Noncontrast head CT showing no acute findings. Stable mild patchy cerebral white matter and chronic microvascular ischemic changes. LABORATORIES: Reviewed in the chart as per above. White count 10.85. Sodium 132. BUN, creatinine, AST, and ALT normal. Glucose 124 to 168. TSH and free T4 are normal. Urinalysis suspicious for a urinary tract infection. Culture is pending. Toxicology negative. ASSESSMENT AND PLAN: Mental status change, acute confusional state of uncertain etiology. Her behavior during my time at the bedside is unusual. I do not detect obvious focal neurologic findings or abnormalities. Negative head CT is reassuring. I would agree with treating her urinary tract infection and any dehydration as you are doing. I agree with Psychiatry consultation. If she does not show some improvement, we could consider some further workup if felt indicated. Thank you for the consult. cc: MD PERCY Barnes
[2019-06-30] MEDS: TYLENOL PO PRN (22:11)
[2019-06-30] MEDS: ROCEPHIN 1 GM in NS 50 ML IV SCH (22:12)
[2019-06-30] MEDS: GEODON PO SCH (22:13)
[2019-06-30] MEDS: SINGULAIR PO SCH (22:13)
[2019-06-30] MEDS: LIPITOR PO SCH (22:13)
[2019-06-30] MEDS: SYNTHROID PO SCH (22:14)
[2019-07-01] MEDS: NS 1,000 ML IV SCH (03:21)
[2019-07-01 05:37] LABS: BASO# 0.07 X1000 (0.0-0.2); BASO% 0.8 % (0.0-0.8); EOS% 5.8 % (0.0-10.0); HEMATOCRIT 37.2 % (37.0-47.0); HEMOGLOBIN 12.1 g/dL (12.0-16.0); IMM GRAN# 0.05 X1000 (0.0-0.04); IMM GRAN% 0.6 % (0.0-0.5); LYMPH# 3.34 X1000 (1.2-3.4); LYMPH% 38.5 % (20.5-51.1); MCH 29.4 PG (27-31); MCHC 32.5 g/dL (33-37); MCV 90.3 FL (81-99); MONO# 1.38 X1000 (0.11-0.59); MONO% 15.9 % (1.7-9.3); NEUT# 3.33 X1000 (1.4-6.5); NEUT% 38.4 % (42.2-75.2); PLT 314 X1000 (130-400); RBC 4.12 XMIL (4.2-5.4); RDW 13.9 % (11.5-14.5); WBC 8.67 X1000 (4.8-10.8)
[2019-07-01] MEDS: ISOPTIN SR PO SCH ×2 (09:49→23:13)
[2019-07-01] MEDS: GEODON PO SCH ×2 (09:49→23:13)
[2019-07-01] MEDS: PEPCID PO SCH (09:49)
[2019-07-01] MEDS: DEPAKOTE SPRINKLE PO SCH ×2 (09:49→23:13)
[2019-07-01] MEDS: MYRBETRIQ E.R. PO SCH (09:49)
[2019-07-01] MEDS: ZYLOPRIM PO SCH (09:50)
[2019-07-01] MEDS: TOVIAZ PO SCH (09:50)
[2019-07-01] MEDS: SYSTANE EYE DROPS OPH SCH (09:50)
[2019-07-01] MEDS: MYCOSTATIN POWDER TOP SCH ×2 (09:51→23:14)
--- NOTE | 2019-07-01 11:26 | NEUROLOGY PROGRESS NOTE ---
DATE: 07/01/2019 LOCATION: Room 112. SUBJECTIVE: Dr. Story saw Ms. Martin for Neurology consultation yesterday. There is reported previously diagnosed dementia, stroke, diabetes mellitus, depression, dyslipidemia, hypothyroidism. She presented with altered mental state and evidence of UTI. Home medication list includes 19 entries. Of these, potential REGULATORY AFFAIRS COORDINATOR active agents include divalproex 300 mg b.i.d. (I am not certain about this dose), and p.r.n. tramadol. There is not cholinesterase inhibitor or memantine on the list. She received ziprasidone here 20 mg IM overnight, 1 dose. Records show she was admitted last month, discharged 06/19/2019, following a fall. She had 21 medication entries then, and trazodone was stopped. This time, lab showed sodium 132, blood sugars 120s to 160s, normal TSH and free T4. Urine drug screen was all negative. She has been afebrile. Noncontrast CT shows nothing remarkable and no significant change compared to 06/16/2019 scan. Computer record shows 05/21/2018 brain MRI with similar appearance. OBJECTIVE: On exam today, she is awake, alert, mostly attentive. She appears to voluntarily choose to answer and voluntarily choose not to answer questions. Her communication is difficult to categorize. She answered a few questions correctly. Some of her utterance were gibberish, some were words with no context, and some were appropriate. She moved all limbs vigorously and purposefully. Limb tone is symmetric. She generally moved each limb opposite to my instructions, and demonstrated good power throughout. Plantar response is silent bilaterally. She counted fingers correctly once in each visual field, and then refused to count fingers further. She protruded her tongue in midline. Facial motility is symmetric. IMPRESSION: No definite neurologic diagnosis. I do not know about her prior dementia diagnosis and stroke diagnosis. Negative imaging is reassuring. I do not know if current behavior is near her baseline or not. I agree with Psychiatry consultation as requested. I do not strongly suspect subclinical seizure or ictal stupor, but I will order electroencephalogram to be certain. Thank you for asking Neurology to see Ms. Martin. cc: MD PERCY Marin III
--- NOTE | 2019-07-01 12:25 | PROGRESS NOTE ---
DATE: 07/01/2019 INTERVAL HISTORY: No acute events overnight. SUBJECTIVE: Mr. Martin is awake and alert but she appears to have psychosis and is not engaging in the clinical encounter meaningfully. VITALS: Temperature 97.6 degrees, pulse 85, respiratory rate 20, blood pressure 150/80, saturating 98% on room air. PHYSICAL EXAMINATION: Oral cavity is moist. Lungs: Air entry bilaterally equal. No wheeze, rhonchi, crackles. S1, S2 normal. No murmur, rub, or gallop. Abdomen: Soft, nontender. No lower extremity edema. She has a urine catheter and I discussed with the nurse about taking it out. LABS: Suggestive of WBC 8.6, hemoglobin 12.1, platelets 314,000. She does not have any BMP. MICROBIOLOGY: Urine culture is growing gram-negative mireya. Final culture and sensitivity is pending. ASSESSMENT AND PLAN: 1. Acute encephalopathy. Head CT was unremarkable. This is likely in the setting of her probably baseline cognitive dysfunction and psychiatric illnesses. I am awaiting Ceasar Mclain consultation in next 24 hours. 2. History of psychosis. Continue home Depakote. Start Geodon and once medically ready, consult Ceasar Mclain. She also had hyponatremia in the past, possibly related to Depakote use. Currently, sodium levels are within acceptable range. 3. Acute cystitis without hematuria due to gram-negative rods with multiple urinary tract infections in the past. Continue intravenous ceftriaxone. Follow up on her urine culture results. 4. Others. Continue atorvastatin for hyperlipidemia; famotidine for gastroesophageal reflux disease; levothyroxine for hypothyroidism; fesoterodine and phenazopyridine for bladder spasm; verapamil for hypertension. She has a history of fibromyalgia, diffuse osteoarthritis, and start her on analgesic medication as tolerated. Start blood sugar checks for her history of insulin-dependent diabetes mellitus and keep her on sliding scale insulin. 5. Disposition. Monitor patient inside the hospital. Plan of care discussed with Ms. Martin. I will contact her family. cc: Mingo Melara MD
--- NOTE | 2019-07-01 14:50 | EKG Report ---
Test Performed on : 07/01/2019 2:42:53 PM Test Reason : Monitor for QTc. Blood Pressure : / mmHG Vent. Rate : 083 BPM Atrial Rate : 083 BPM P-R Int : 152 ms QRS Dur : 072 ms QT Int : 378 ms P-R-T Axes : 047 024 042 degrees QTc Int : 444 ms Normal sinus rhythm. ST & T wave abnormality, consider anterior ischemia Abnormal ECG When compared with ECG of 17-JUN-2019 00:43, T wave inversion now evident in Anterior leads QT has shortened Confirmed by Julio C Burkett MD ([id number]) on 07/02/2019 9:26:07 PM
--- NOTE | 2019-07-01 15:27 | EEG REPORT ---
DATE: 07/01/2019 ROOM: 112. EEG #: [id number]. DATE OF STUDY: 07/01/2019. COMMENT: This is a digitally recorded EEG on a 73-year-old patient with odd behavior, question of psychosis, reported previously diagnosed dementia and depression. There is question of subclinical seizure. FINDINGS: Much of the record is obscured by frontal muscle contraction artifact. Legible portions show low amplitude polymorphic and rhythmic theta symmetrically across the frontal and central regions. Ten hertz posterior rhythm is occasionally identified, often obscured by muscle contraction artifact. Drowsing and stage II sleep were not recorded. Photic stimulation did not significantly alter the record. Hyperventilation was not done. No definite epileptiform discharge was identified. INTERPRETATION: Normal electroencephalogram. CORRELATION: The absence of epileptiform discharges on a single EEG does not exclude a clinical diagnosis of seizures, but there is nothing on this record to suggest subclinical seizure as the reason for her current appearance. cc: Meenu Puentes III, MD MTDD
[2019-07-01] MEDS: HUMALOG SUBQ SCH ×2 (18:15→18:16)
[2019-07-01] MEDS ORDERED: GEODON PO SCH (21:00)
[2019-07-01] MEDS: SYNTHROID PO SCH (23:13)
[2019-07-01] MEDS: ROCEPHIN 1 GM in NS 50 ML IV SCH (23:13)
[2019-07-01] MEDS: LIPITOR PO SCH (23:13)
[2019-07-01] MEDS: SINGULAIR PO SCH (23:13)
[2019-07-02] MEDS: SYSTANE EYE DROPS OPH SCH ×3 (04:57→21:15)
[2019-07-02] MEDS: HUMALOG SUBQ SCH ×4 (04:57→19:00)
--- NOTE | 2019-07-02 07:43 | EKG Report ---
Test Performed on : 07/02/2019 06:54:32 AM Test Reason : Follow up QTc Blood Pressure : / mmHG Vent. Rate : 070 BPM Atrial Rate : 070 BPM P-R Int : 154 ms QRS Dur : 076 ms QT Int : 430 ms P-R-T Axes : 018 006 024 degrees QTc Int : 464 ms Normal sinus rhythm. Nonspecific ST abnormality Abnormal ECG When compared with ECG of 01-JUL-2019 14:42, (Unconfirmed) No significant change was found Confirmed by Julio C Burkett MD ([id number]) on 07/02/2019 9:31:08 PM
[2019-07-02] MEDS: TOVIAZ PO SCH (09:16)
[2019-07-02] MEDS: ZYLOPRIM PO SCH (09:16)
[2019-07-02] MEDS: ISOPTIN SR PO SCH ×2 (09:16→20:44)
[2019-07-02] MEDS: GEODON PO SCH ×2 (09:16→20:44)
[2019-07-02] MEDS: DEPAKOTE SPRINKLE PO SCH ×2 (09:16→20:45)
[2019-07-02] MEDS: MYRBETRIQ E.R. PO SCH (09:16)
[2019-07-02] MEDS: PEPCID PO SCH (09:17)
[2019-07-02] MEDS: MYCOSTATIN POWDER TOP SCH ×2 (10:19→20:49)
[2019-07-02] MEDS ORDERED: BLISTEX MEDICATED BERRY LIP BALM TOP PRN (11:00)
[2019-07-02] MEDS: TYLENOL PO PRN (13:30)
--- NOTE | 2019-07-02 18:15 | PROGRESS NOTE ---
DATE: 07/02/2019 INTERVAL HISTORY: I had a detailed discussion about Ms. Martin's clinical condition and medical management plan with her sister at bedside and all of her questions were satisfactorily answered. We had discussed about slowly up titrating ziprasidone dose. SUBJECTIVE: Ms. Martin was sleeping and was easily arousable. She does not appear in any acute distress. She is not able to provide meaningful history. PHYSICAL EXAMINATION: General: Ms. Martin is not in acute distress. Vital Signs: Temperature 97.6 degrees, pulse 66, respiratory 22, blood pressure 154/67, saturating 100% on room air. HEENT: Oral cavity is moist. Lungs: No wheezes or crackles. Cardiovascular: S1, S2 normal. No murmur, rub, or gallop. Abdomen: Soft, nontender. Extremity: Mild lower extremity edema. Neurologic: She is alert. She is oriented to herself. She does not answer questions regarding orientation correctly. She reiterates my name and then talks irrelevantly. She did not answer questions related to hallucinations. LABS: No CBC today. Blood glucose 107. Urine culture final report is pending. ASSESSMENT AND PLAN: 1. Acute psychosis with History of psychosis and now worsening of her baseline psychiatric illness. 2. Acute cystitis without hematuria due to gram-negative rods pending final cultures. 3. Acute encephalopathy, likely because of worsening of her underlying psychiatric illness. PLAN: 1. I will continue her on current dose of ziprasidone as well as divalproex. Previously, she had developed hyponatremia when divalproex dose had been increased. I will continue her on intravenous ceftriaxone. Follow up final urine culture results. 2. I will continue atorvastatin for hyperlipidemia; famotidine for GERD; levothyroxine for hypothyroidism and fesoterodine and phenazopyridine for bladder spasm. She is also receiving verapamil for hypertension. She has history of fibromyalgia, diffuse osteoarthritis, and chronic pain. Her blood sugars have been well controlled, and she has not been needing long- acting insulin. DISPOSITION: Once urine culture results are back, my plan is to consult Ceasar Mclain for inpatient psychiatric needs. cc: Mingo Melara MD [facility]
[2019-07-02] MEDS: SINGULAIR PO SCH (20:44)
[2019-07-02] MEDS: SYNTHROID PO SCH (20:45)
[2019-07-02] MEDS: LIPITOR PO SCH (20:45)
[2019-07-02] MEDS: ROCEPHIN 1 GM in NS 50 ML IV SCH (22:44)
[2019-07-03] MEDS: HUMALOG SUBQ SCH ×4 (04:11→18:38)
[2019-07-03] MEDS: DEPAKOTE SPRINKLE PO SCH ×2 (09:45→21:40)
[2019-07-03] MEDS: SYSTANE EYE DROPS OPH SCH ×2 (09:45→21:39)
[2019-07-03] MEDS: ISOPTIN SR PO SCH ×3 (09:45→22:06)
[2019-07-03] MEDS: MYRBETRIQ E.R. PO SCH (09:45)
[2019-07-03] MEDS: PEPCID PO SCH (09:45)
[2019-07-03] MEDS: ZYLOPRIM PO SCH (09:45)
[2019-07-03] MEDS: TOVIAZ PO SCH (09:46)
[2019-07-03] MEDS: MYCOSTATIN POWDER TOP SCH ×2 (09:47→21:41)
[2019-07-03] MEDS: GEODON PO SCH ×2 (09:47→21:40)
[2019-07-03] MEDS: KEFLEX PO SCH ×3 (10:32→21:40)
--- NOTE | 2019-07-03 12:50 | PROGRESS NOTE ---
DATE: 07/03/2019 INTERVAL HISTORY: Her urine culture grew Klebsiella pneumoniae which is sensitive to 1st generation of cephalosporins. Antibiotics have been changed from intravenous ceftriaxone to oral Keflex. SUBJECTIVE: Ms. Martin was asleep but easily wakes up to verbal stimuli. She demonstrates bizarre behavior, and is not able to participate in clinical encounter meaningfully. OBJECTIVE: Vital Signs: Temperature 97.9 degrees, pulse 74, respiratory 16, blood pressure 140/82, and saturating 100% on room air. General: Oral cavity is dry. Lungs: Air entry bilaterally equal. No wheeze, rhonchi, or crackles. Cardiovascular: S1, S2 normal. No murmur or gallop. Abdomen: Soft, nontender. Extremities: No lower extremity edema. Neurologic: She is alert, but does not participate in encounter and does not appear oriented. She often times answers questions irrelevantly. Musculoskeletal: During my physical encounter, when I ask her to check her pulse, she made her right upper extremity extremely stiff and started moaning for unclear reasons. LABORATORY: Blood glucose 121. MICROBIOLOGY: Urine culture growing Klebsiella pneumoniae, sensitive to cefazolin. Electrocardiogram yesterday had nonspecific ST abnormality. QTc was within acceptable range. ASSESSMENT AND PLAN: 1. Acute psychosis with history of psychosis and now worsening of her baseline psychiatric illness. 2. Acute cystitis without hematuria due to Klebsiella pneumoniae UTI. 3. Acute encephalopathy, likely because of worsening of her underlying psychiatric illness. 4. Previous history of hyponatremia thought to be related to use of multiple psychiatric medications including Depakote. PLAN: 1. I will change her antibiotics to oral Keflex to complete 2 remaining days of antibiotics. 2. I will continue her on Depakote and oral ziprasidone. Would await further recommendations from Ceasar Mclain. 3. Continue atorvastatin for hyperlipidemia; allopurinol for history of gout; famotidine for chronic GERD; fesoterodine or Toviaz for bladder spasm; sliding scale insulin for noninsulin- dependent diabetes mellitus; levothyroxine for history of hypothyroidism; phenazopyridine and for history of bladder spasm; verapamil for essential hypertension. 4. Disposition: Awaiting Ceasar Mclain recommendations. cc: MD PERCY Philip
--- NOTE | 2019-07-03 21:34 | DISCHARGE SUMMARY ---
ADMISSION DATE: 07/01/2019 DISCHARGE DATE: This is a summary till 07/03/2019. DISCHARGE DISPOSITION: Likely to a psychiatric facility pending formal evaluation. DISCHARGE CONDITION: Ms. Martin is hemodynamically stable. She continues to have bizarre behavior, likely acute psychosis on top of her history of psychotic disorder. Her oral intake is poor. She has been able to take oral medications by mouth though. DISCHARGE DIAGNOSES: 1. Acute psychosis with history of psychosis and worsening of her baseline psychiatric illness. 2. Acute cystitis without hematuria due to gram-negative rods, which turned out to be Klebsiella pneumoniae. 3. Acute encephalopathy due to worsening of her underlying psychiatric illness. 4. Mild intravascular volume depletion. OTHER DIAGNOSES: 1. History of fibromyalgia. 2. History of insulin-dependent diabetes mellitus. 3. Essential hypertension. 4. History of recurrent urinary tract infection. 5. History of overactive bladder and bladder spasm. 6. Hypothyroidism. 7. Severe osteoarthritis with bilateral knee replacement and shoulder surgeries leading to chronic pain disorder. 8. History of anxiety and depression. 9. Recent history of fall due to polypharmacy and hyponatremia, thought to be related to trazodone and Depakote use. DISCHARGE MEDICATIONS: 1. Atorvastatin 10 mg at nighttime. 2. Montelukast 10 mg at nighttime. 3. Ziprasidone 40 mg at nighttime. 4. Ziprasidone 20 mg in the morning time. 5. Keflex 500 mg every 6 hours for a total of 6 more doses. 6. Acetaminophen 650 mg every 6 hours as needed for pain or fever. 7. Allopurinol 100 mg daily. 8. Depakote 250 mg orally b.i.d. 9. Famotidine 20 mg daily. 10. Fesoterodine 4 mg daily. 11. Insulin lispro subcutaneously every 6 hours. 12. Levothyroxine 50 mcg at nighttime. 13. Mirabegron 50 mg daily. 14. Ondansetron 4 mg every 6 hours orally as needed for nausea and vomiting. 15. Phenazopyridine 200 mg t.i.d. as needed for bladder spasm. 16. Verapamil 240 mg b.i.d. 17. Systane eyedrops b.i.d. PRESENT VITALS: Temperature 97.9 degrees, pulse 74, respiratory rate 16, blood pressure 140/80, saturating 100% room air. CURRENT PHYSICAL EXAMINATION: Not in acute distress. Oral cavity is dry. Air entry bilaterally equal. No wheeze or crackles. S1, S2 normal. No murmur or gallop. The abdomen is obese, soft, nontender. No lower extremity edema. She was easily arousable and alert. She reiterated whatever question that was presented to her, other than answering meaningfully. CURRENT LABORATORIES: WBC 8.6, hemoglobin 12.1, platelets 314,000. Sodium 132, chloride 94, BUN 8, creatinine 0.6. Blood glucose 121. Urine toxicology was negative. Urinalysis had large pyuria. Microbiology during hospital admission: Blood culture did not have any growth. Urine culture had Klebsiella pneumoniae sensitive to cefazolin. IMAGING DURING HOSPITAL ADMISSION: 1. Chest x-ray, did not have any acute cardiopulmonary process. 2. Head CT did not have any acute process except mild patchy cerebral white matter chronic microvascular ischemia. 3. Electrocardiogram on presentation had normal sinus rhythm, ST-T abnormality consider anterior ischemia. T-wave inversions were evident on anterior leads. 4. Repeat electrocardiogram 24 hours later had normal sinus rhythm, nonspecific ST abnormality. 5. Electroencephalogram on June 30 had normal electroencephalogram. CONSULTATION DURING HOSPITAL ADMISSION: Neurology, Dr. Puentes. HOSPITAL COURSE SUMMARY: Ms. Martin is a 73-year-old lady with past medical history of psychosis who was admitted to [facility] in May 2018, came in with chief complaint of altered mental status. Apparently, the patient was discharged from [facility] only 10 days prior to current presentation, when she was admitted for fall thought to be related to hyponatremia. However, after going back to a [facility] facility, she had worsening confusion over several days. When she presented to the emergency room, she was moderately confused. She had pressured speech and she was not able to participate in the clinical encounter meaningfully. Vitals had a temperature of 98.1 degrees, pulse of 73, blood pressure of 155/116, and oxygen saturation of 97%. She was found to have a mild leukocytosis of 10.8, and pyuria with [id number] WBCs. It was thought that possibly acute UTI was contributing to her mental status. She was resuscitated with intravenous fluids and intravenous antibiotics were started and she was admitted for further management. However, with intravenous fluids and intravenous antibiotics, the patient's clinical condition did not improve. She was on appropriate antibiotics which were later on changed, according to the culture and sensitivity. It was thought that her mental status was related to her baseline psychotic and other psychiatric illnesses, so [facility] has been consulted. The patient's family was kept up-to-date about patient's clinical condition and plan for [facility] consultation. The plan is for patient to be discharged to a psychiatric facility whenever they accept her, most likely on 07/03/2019, though we are awaiting formal recommendations and evaluation. TIME SPENT: Thirty-five minutes have been spent in this process of discharging her. cc: Mingo Melara MD [facility]TD[facility]o
[2019-07-03] MEDS: SINGULAIR PO SCH (21:40)
[2019-07-03] MEDS: LIPITOR PO SCH (21:40)
[2019-07-03] MEDS: SYNTHROID PO SCH (21:40)
[2019-07-03] MEDS: PATIENT'S OWN MED VAG SCH (21:42)
[2019-07-03] MEDS: TYLENOL PO PRN (21:47)
[2019-07-04] MEDS: HUMALOG SUBQ SCH ×4 (01:08→19:14)
[2019-07-04] MEDS: KEFLEX PO SCH ×4 (03:02→21:39)
[2019-07-04] MEDS: DEPAKOTE SPRINKLE PO SCH (10:16)
[2019-07-04] MEDS: MYRBETRIQ E.R. PO SCH (10:16)
[2019-07-04] MEDS: TOVIAZ PO SCH (10:16)
[2019-07-04] MEDS: ISOPTIN SR PO SCH ×2 (10:16→21:38)
[2019-07-04] MEDS: GEODON PO SCH ×2 (10:16→21:38)
[2019-07-04] MEDS: PEPCID PO SCH (10:16)
[2019-07-04] MEDS: SYSTANE EYE DROPS OPH SCH ×2 (10:17→21:39)
[2019-07-04] MEDS: ZYLOPRIM PO SCH (10:17)
[2019-07-04] MEDS: LOVENOX SUBQ SCH (11:41)
[2019-07-04 11:48] LABS: BASO# 0.15 X1000 (0.0-0.2); BASO% 1.5 % (0.0-0.8); EOS# 0.11 X1000 (0.0-0.7); EOS% 1.1 % (0.0-10.0); HEMATOCRIT 43.8 % (37.0-47.0); HEMOGLOBIN 14.3 g/dL (12.0-16.0); IMM GRAN# 0.06 X1000 (0.0-0.04); IMM GRAN% 0.6 % (0.0-0.5); LYMPH# 2.32 X1000 (1.2-3.4); LYMPH% 23.2 % (20.5-51.1); MCH 29.5 PG (27-31); MCHC 32.6 g/dL (33-37); MCV 90.3 FL (81-99); MONO# 1.31 X1000 (0.11-0.59); MONO% 13.1 % (1.7-9.3); MPV 9.4 FL (7.4-10.4); NEUT# 6.04 X1000 (1.4-6.5); NEUT% 60.5 % (42.2-75.2); PLT 375 X1000 (130-400); RBC 4.85 XMIL (4.2-5.4); WBC 9.99 X1000 (4.8-10.8)
[2019-07-04 12:14] LABS: AGAP 16; ALB/GLOB RATIO 0.8; ALKALINE PHOSPHATASE 87 U/L (32-104); BUN 20 mg/dL (8-22); CHLORIDE 99 mmol/L (98-107); COSMO 276; CREATININE 0.6 mg/dL (0.5-0.9); ESTIMATED GFR > 60; GLUCOSE 133 mg/dL (70-104); GOT 42 U/L (10-30); GPT 18 U/L (10-36); POTASSIUM 3.9 mmol/L (3.5-5.1); SODIUM 136 mmol/L (136-145); TCO2 21 mmol/L (25-35); TOTAL BILIRUBIN 0.62 mg/dL (0.20-1.00); TOTAL PROTEIN 6.8 g/dL (6.3-8.3)
[2019-07-04] MEDS ORDERED: LR 1,000 ML IV SCH (13:15)
--- NOTE | 2019-07-04 14:15 | PROGRESS NOTE ---
DATE: 07/04/2019 INTERVAL HISTORY: [facility] had evaluated Ms. Martin and they did not accept her. I was informed by the nursing team that this happened because patient did not have any guardian anymore and they were not able to get in touch with the guardian. I do not have the details of it. SUBJECTIVE: Ms. Martin is not able to participate in the clinical encounter meaningfully. She answers some questions, though not reliably, however, does not appear in any acute distress. VITALS: Temperature of 97.7 degrees, pulse 89, respiratory rate 17, blood pressure 150/78. She is saturating 100% on room air. PHYSICAL EXAMINATION: Morbidly obese, not in any acute distress. Oral cavity is moist. Oral cavity is dry.Lungs: Air entry bilaterally equal. No wheeze, rhonchi, crackles. Cardiovascular: S1, S2 normal. No murmur or gallop. Abdomen: Soft, nontender. Extremity: No lower extremity edema. She is alert. She does not answer questions regarding orientation. She is moving all extremities spontaneously. I could not assess her thought process since she does not answer any of the questions. However, she does demonstrate bizarre behavior. It does not seem as if she was hallucinating, though. LABS: WBC 9.9, hemoglobin 14.3, platelet 375,000. Sodium 136, potassium 3.9, BUN is 20, creatinine 0.6. Urine culture is growing Klebsiella pneumoniae, which is sensitive to cefazolin. No new imaging. ASSESSMENT AND PLAN: 1. Acute psychosis with history of psychosis and now presenting with worsening of her baseline psychiatric illness. Continue ziprasidone at nighttime and morning time. I will consider increasing the Depakote dose. 2. Acute cystitis without hematuria due to Klebsiella pneumoniae, and acute urinary tract infection. Continue oral cefazolin. 3. Others: Continue atorvastatin for hyperlipidemia; allopurinol for gout; levothyroxine for hypothyroidism; mirabegron, phenazopyridine, and fesoterodine for bladder spasm; verapamil for essential hypertension. She has history of fibromyalgia, osteoarthritis affecting multiple joints and chronic pain. I will continue her on sliding scale insulin for insulin-dependent diabetes mellitus. Change her diet to mechanical soft. DISPOSITION: Continue to monitor patient inside the hospital as we await inpatient psychiatric placement. [facility] team on board and several referrals have been sent out. cc: Mingo Melara MD
[2019-07-04] MEDS: MYCOSTATIN POWDER TOP SCH ×2 (15:07→21:39)
[2019-07-04] MEDS: DEPAKOTE PO SCH (21:38)
[2019-07-04] MEDS: LIPITOR PO SCH (21:38)
[2019-07-04] MEDS: SINGULAIR PO SCH (21:39)
[2019-07-04] MEDS: SYNTHROID PO SCH (21:39)
[2019-07-05] MEDS: HUMALOG SUBQ SCH ×4 (00:39→18:55)
[2019-07-05] MEDS: KEFLEX PO SCH ×2 (02:50→10:09)
[2019-07-05] MEDS: TOVIAZ PO SCH (10:08)
[2019-07-05] MEDS: MYRBETRIQ E.R. PO SCH (10:08)
[2019-07-05] MEDS: PEPCID PO SCH (10:08)
[2019-07-05] MEDS: ISOPTIN SR PO SCH ×2 (10:09→21:37)
[2019-07-05] MEDS: DEPAKOTE SPRINKLE PO SCH (10:13)
[2019-07-05] MEDS: GEODON PO SCH ×2 (10:13→21:38)
[2019-07-05] MEDS: MYCOSTATIN POWDER TOP SCH ×2 (10:13→22:23)
[2019-07-05] MEDS: ZYLOPRIM PO SCH (10:21)
[2019-07-05] MEDS: LOVENOX SUBQ SCH (12:41)
--- NOTE | 2019-07-05 15:02 | PROGRESS NOTE ---
DATE: 07/05/2019 INTERVAL HISTORY: No acute events overnight. SUBJECTIVE: Ms. Martin has not been eating food at all. She has been lying down in the bed. She received liter of intravenous fluids yesterday. SUBJECTIVE: She is slightly more awake and alert and talking today than yesterday. She answers some questions briefly. She does not engage in conversation to contribute to the history. VITALS: Temperature 97.7 degrees, pulse 81, respiratory 19, blood pressure 160/80, she is saturating 98% room air. PHYSICAL EXAMINATION: Not in acute distress. She just ate some yogurt and I could see that stuck to her teeth. Air entry bilateral equal. No wheeze, rhonchi crackles. S1 normal no gallop.Abdomen: Soft, nontender, obese. No lower extremity edema. She is alert, she could recognize me. She is able to lift both upper and lower extremity above ground level but she does not answer questions appropriately. When I ask her what place she was in she said [place]. LABS: Yesterday WBC 9.9, hemoglobin 14.3, platelet 375,000, BUN 20, creatinine 0.6, blood sugar 99. Microbiology no new data. No new imaging. ASSESSMENT AND PLAN: 1. Acute psychosis with history of psychosis. Increase the dose of nighttime Depakote. Continue higher dose of nighttime ziprasidone. Continue daytime ziprasidone and Depakote. 2. Acute cystitis without hematuria due to Klebsiella pneumoniae and acute urinary tract infection status post antibiotics which she completed on July 03. 3. Others, continue atorvastatin for hyperlipidemia, allopurinol for gout, levothyroxine for hypothyroidism, mirabegron, phenazopyridine and fesoterodine for bladder spasm, verapamil for essential hypertension. She has history of fibromyalgia, osteoarthritis affecting multiple joints and chronic pain. Continue sliding scale insulin for insulin- dependent diabetes mellitus and continue mechanical soft diet. DISPOSITION: Unfortunately we have not been able to find a psychiatric facility for her which she is in need for. Plan of care discussed with patient and her questions have been satisfactorily answered though she is not engaging in participation engaging the clinical encounter meaningfully, I will try and reach out to her family and update her about her course. ADDENDUM: I called patient's family member and I discussed with her that Ms. Martin has been medically stable. However, we are awaiting in patient psychiatric facility for discharge. Unfortunately, we haven't found one yet. Ms. Braun says that she will try and get a temporary guardianship from the court tomorrow. cc: Mingo Melara MD [facility]TD[facility]o
[2019-07-05] MEDS: SYSTANE EYE DROPS OPH SCH ×2 (18:35→22:23)
[2019-07-05] MEDS: SYNTHROID PO SCH (21:38)
[2019-07-05] MEDS: DEPAKOTE PO SCH (21:38)
[2019-07-05] MEDS: SINGULAIR PO SCH (21:38)
[2019-07-05] MEDS: TYLENOL PO PRN (21:38)
[2019-07-05] MEDS: LIPITOR PO SCH (21:38)
[2019-07-06] MEDS: HUMALOG SUBQ SCH ×4 (01:26→18:52)
[2019-07-06] MEDS: DEPAKOTE SPRINKLE PO SCH (10:19)
[2019-07-06] MEDS: GEODON PO SCH ×2 (10:19→22:17)
[2019-07-06] MEDS: PEPCID PO SCH (10:19)
[2019-07-06] MEDS: SYSTANE EYE DROPS OPH SCH ×2 (10:20→22:18)
[2019-07-06] MEDS: ZYLOPRIM PO SCH (10:20)
[2019-07-06] MEDS: LOVENOX SUBQ SCH (10:20)
[2019-07-06] MEDS: ISOPTIN SR PO SCH ×2 (10:20→22:18)
[2019-07-06] MEDS: MYRBETRIQ E.R. PO SCH (10:20)
[2019-07-06] MEDS: TOVIAZ PO SCH (10:20)
[2019-07-06] MEDS: MYCOSTATIN POWDER TOP SCH ×2 (10:33→22:20)
[2019-07-06] MEDS: NORVASC PO SCH (13:11)
--- NOTE | 2019-07-06 14:16 | PROGRESS NOTE ---
DATE: 07/06/2019 INTERVAL HISTORY: No acute events overnight. The patient ate a little bit of her breakfast this morning. She does not appear in any acute distress. SUBJECTIVE: She states she is feeling fine, but she is not able to participate in the clinical encounter meaningfully. She is not able to provide adequate historical data. OBJECTIVE: Vital Signs: Temperature 98 degrees, pulse 74, respiratory rate 17, blood pressure 154/81, she is saturating 99% on room air. General: Ms. Martin is not in any acute distress. HEENT: Oral cavity is dry. Lungs: Air entry bilaterally equal. No wheeze, rhonchi, crackles. Heart: S1, S2 normal. No murmur or gallop. Abdomen: Obese, soft, nontender. Extremities: No lower extremity edema. Neurologic: She is alert. She is not oriented. She often times exhibits bizarre behavior. She is not able to speak during most of the encounter; however, occasionally answers with irrelevant words. LABORATORY DATA: No labs today. Blood glucose 110. MICROBIOLOGY/IMAGING: No new microbiological or imaging data. ASSESSMENT AND PLAN: 1. Acute psychosis with history of psychosis. Continue Depakote and ziprasidone. I have talked with the psychiatrist on the phone, who would kindly evaluate the patient tomorrow. Supervisor Remelt is on board and working on inpatient psychiatric hospital placement. 2. Acute cystitis without hematuria due to Klebsiella pneumoniae and acute urinary tract infection, status post antibiotics which she completed on 07/04/2019. 3. Others. Continue atorvastatin for hyperlipidemia, allopurinol for gout, and levothyroxine for hypothyroidism. 4. Essential hypertension. I will continue current dose of diltiazem, and add amlodipine for better control of blood pressure. 5. Continue mirabegron, phenazopyridine, and fesoterodine for bladder spasm. 6. The patient has history of fibromyalgia, osteoarthritis affecting multiple joints with chronic pain, which are currently stable. 7. I will keep her on sliding scale insulin for diabetes mellitus, and continue mechanical soft diet. 8. Disposition. I had in-depth discussion about the patient's clinical condition with the patient's only relative, Ms. Braun, on the phone on 07/05/2019. Ms. Braun is in the process of obtaining temporary guardianship so that she could make decisions on behalf of Ms. Martin. Also, Supervisor Remelt has been working on finding a psychiatric facility. So far though, it has been unsuccessful. I will appreciate psychiatric team's recommendation regarding any modification in her psychiatric medicine regimen as appropriate. cc: Mingo Melara MD MTDD
[2019-07-06] MEDS: SYNTHROID PO SCH (22:18)
[2019-07-06] MEDS: DEPAKOTE PO SCH (22:18)
[2019-07-06] MEDS: LIPITOR PO SCH (22:18)
[2019-07-06] MEDS: PATIENT'S OWN MED VAG SCH (22:20)
[2019-07-06] MEDS: SINGULAIR PO SCH (22:22)
[2019-07-07] MEDS: HUMALOG SUBQ SCH ×2 (05:12→20:14)
[2019-07-07] MEDS: TYLENOL PO PRN (09:52)
[2019-07-07] MEDS: TOVIAZ PO SCH (09:52)
[2019-07-07] MEDS: ISOPTIN SR PO SCH ×2 (09:52→21:00)
[2019-07-07] MEDS: GEODON PO SCH (09:52)
[2019-07-07] MEDS: PEPCID PO SCH (09:53)
[2019-07-07] MEDS: LOVENOX SUBQ SCH (09:53)
[2019-07-07] MEDS: SYSTANE EYE DROPS OPH SCH ×2 (09:53→21:02)
[2019-07-07] MEDS: DEPAKOTE SPRINKLE PO SCH (09:53)
[2019-07-07] MEDS: MYCOSTATIN POWDER TOP SCH ×2 (09:53→21:03)
[2019-07-07] MEDS: MYRBETRIQ E.R. PO SCH (09:53)
[2019-07-07] MEDS: NORVASC PO SCH (09:53)
[2019-07-07] MEDS: ZYLOPRIM PO SCH (09:53)
--- NOTE | 2019-07-07 12:11 | PROVIDER PROGRESS NOTE ---
- Subjective CC: confusion, disorientation, bizarre behaviors HPI: Note this is the initial encounter by this provider on this pt. Pt is 73yo WF w/ reported but not certain h/o dementia, depression, anxiety & psychosis, admitted now to [facility] Hospitalist medical service from [facility], where she is reportedly a resident, for acute AMS w/ bizarre behaviors. [employer] PROFESS[employer], pt had reportedly been relatively stable clinically at the facility, w/ abrupt, severe change in mentation prompting ED evaluation. Upon admission, pt was discovered to have UTI, as possible exacerbating factor, for which she has been treated w/ Abx. Pt's subsequent neurological & [employer] INST[employer]ER [employer] REPAIRER imaging evaluations have been reassuring for no acute intracranial process and no definitive acute neurological condition. Pt has remained very confused, disoriented & bizarre. She is unable to provide meaningful history or report given her very disorganized TP & ABDIFATAH w/ word salad. She is not somnolent, stuporous, or clearly catatonic, though she is resistant to prompts or inquiries and has been resistant at times to care, eg, meals. She has not been violent or combative or o/w clearly aggressive. She is grossly psychotic given her very d/o TP & ABDIFATAH but she has not been clearly observed hallucinating or making paranoid statements. She is unable to provide any report about her mood or anxiety, but she has not been observed attempting to harm herself or others. No sources of collateral report are available at this time, though pt reportedly has a niece who is pursuing guardianship in the Probate Court. PAST MEDICAL HISTORY: reported to include asthma, CVA, hypothyroidism, diabetes mellitus type 2, sleep apnea, GERD, hypertension, depression, hyperlipidemia. PAST SURGICAL HISTORY: reported to include hysterectomy, right mastectomy, bilateral knee replacement, right shoulder repair, tonsillectomy, cataract surgery. ALLERGIES: reported to include neuromuscular blockade and steroidal agents. CURRENT MEDICATIONS: reviewed in EMR SOCIAL HISTORY: reportedly no history of smoking, alcohol or illicit drug use. She is reportedly resident at [facility]. FAMILY HISTORY: no known h/o psychis disease. ROS: comprehensive 12 point ROS unable to be obtained d/t pt's clinical condition. Physical Exam Objective Vital Signs - 8 hr 07/06/ 08:00 Temperature 97.9 F Pulse Rate 81 Respiratory Rate 15 Blood Pressure 159/91 O2 Sat by Pulse Oximetry 96 - Constitutional General Appearance: alert, no apparent distress - PSYCHIATRIC Psych/Mental Status: other (Please see expanded Psych Exam section for detailed MSE) Active Medications Generic Name Dose Route Start Last Admin Trade Name Freq PRN Reason Stop Dose Admin Acetaminophen 650 mg 06/30/19 00:47 07/07/19 09:52 Tylenol PO 650 mg Q6H PRN PRN Administration Fever or Pain Allopurinol 100 mg 06/30/19 09:00 07/07/19 09:53 Zyloprim PO 100 mg DAILY CARY Administration Amlodipine Besylate 5 mg 07/06/19 11:30 07/07/19 09:53 Norvasc PO 5 mg DAILY CARY Administration Atorvastatin Calcium 10 mg 06/30/19 21:00 07/06/19 22:18 Lipitor PO 10 mg QHS CARY Administration Divalproex Sodium 250 mg 07/05/19 09:00 07/07/19 09:53 Depakote Sprinkle PO 250 mg DAILY CARY Administration Divalproex Sodium 500 mg 07/04/19 21:00 07/06/19 22:18 Depakote PO 500 mg QHS CARY Administration Enoxaparin Sodium 40 mg 07/04/19 10:45 07/07/19 09:53 Lovenox SUBQ 40 mg Q24H CARY Administration Famotidine 20 mg 06/30/19 09:00 07/07/19 09:53 Pepcid PO 20 mg DAILY CARY Administration Fesoterodine Fumarate 4 mg 06/30/19 09:00 07/07/19 09:52 Toviaz PO 4 mg DAILY CARY Administration Insulin Human Lispro 0 units 07/01/19 12:15 07/07/19 05:12 Humalog SUBQ Not Given Q6H [facility] Protocol Levothyroxine Sodium 50 microgm 06/30/19 21:00 07/06/19 22:18 Synthroid PO 50 microgm HS CARY Administration Montelukast Sodium 10 mg 06/30/19 21:00 07/06/19 22:22 Singulair PO 10 mg QHS CARY Administration Nystatin 0 gm 06/30/19 09:00 07/07/19 09:53 Mycostatin Powder TOP 1 dose BID CARY Administration Ondansetron HCl 4 mg 06/30/19 00:47 Zofran IV Q4H PRN PRN Nausea And Vomiting Oxybenzone/Padimate O/Dimethicone 0 gm 07/02/19 11:00 Blistex Medicated Tanner Lip Summers TOP PRN PRN Dry Lips Estradiol(Yuvafem) 1 each 07/03/19 21:00 07/06/19 22:20 Vag Supp VAG Not Given MoFr CARY Phenazopyridine HCl 200 mg 06/30/19 00:47 07/02/19 09:16 Pyridium PO 200 mg TID PRN PRN Administration Mild Pain Propylene Glycol 0 each 06/30/19 09:00 07/07/19 09:53 Systane Eye Drops OPH 1 each BID CARY Administration Verapamil HCl 240 mg 06/30/19 09:00 07/07/19 09:52 Isoptin Sr PO 240 mg BID CARY Administration Ziprasidone 40 mg 07/01/19 21:00 07/06/19 22:17 Geodon PO 40 mg QHS CARY Administration Ziprasidone 20 mg 07/02/19 09:00 07/07/19 09:52 Geodon PO 20 mg DAILY CARY Administration Laboratory Results - last 24 hr 07/06/19 07/07/19 07/07/19 18:33 00:05 05:42 POC Glucose 87 95 82 Laboratory Tests 06/29/19 06/29/19 06/29/19 19:31 20:05 20:05 WBC 10.85 H RBC 4.65 Hgb 13.6 Hct 41.1 MCV 88.4 MCH 29.2 MCHC 33.1 RDW Std Deviation 13.7 Plt Count 160 MPV 10.3 Immature Gran % (Auto) 0.6 H Neut % (Auto) 61.0 Lymph % (Auto) 21.0 [place] % (Auto) 15.8 H Eos % (Auto) 1.0 Baso % (Auto) 0.6 Immature Gran # (Auto) 0.06 H Neut # (Auto) 6.63 H Lymph # (Auto) 2.28 [place] # (Auto) 1.71 H Eos # (Auto) 0.11 Baso # (Auto) 0.06 Sodium Potassium Chloride Carbon Dioxide Anion Gap BUN Creatinine Estimated GFR/1.73 m2 BUN/Creatinine Ratio Glucose POC Glucose 168 H Calculated Osmolality Calcium Total Bilirubin AST ALT Alkaline Phosphatase Oag-Z-Ttjzcgvoifq Pept Total Protein Albumin Globulin Albumin/Globulin Ratio Lipase Plasma Lactate TSH 1.75 Free T4 Urine Source Urine Color Urine Turbidity Urine pH Ur Specific [place] Urine Protein Ur Glucose (Stick) Ur Ketones (Stick) Urine Blood Urine Nitrite Urine Bilirubin Urobilinogen Dipstick Urine Leukocytes Urine WBC (Auto) Urine RBC (Auto) U Epithel Cells (Auto) Urine Bacteria (Auto) Urine Opiates Screen Ur Oxycodone Screen Ur Methadone, Qual Ur Barbiturates Screen Ur Phencyclidine Scrn Ur Amphetamines Screen U Benzodiazepines Scrn Urine Cocaine Screen U Cannabinoids Screen 06/29/19 06/29/19 06/29/19 20:26 20:26 20:44 WBC RBC Hgb Hct MCV MCH MCHC RDW Std Deviation Plt Count MPV Immature Gran % (Auto) Neut % (Auto) Lymph % (Auto) [place] % (Auto) Eos % (Auto) Baso % (Auto) Immature Gran # (Auto) Neut # (Auto) Lymph # (Auto) [place] # (Auto) Eos # (Auto) Baso # (Auto) Sodium 132 L Potassium 4.3 Chloride 94 L Carbon Dioxide 23 L Anion Gap 15 BUN 8 Creatinine 0.6 Estimated GFR/1.73 m2 > 60 BUN/Creatinine Ratio 13 Glucose 124 H POC Glucose Calculated Osmolality 264 Calcium 9.3 Total Bilirubin 0.79 AST 26 ALT 15 Alkaline Phosphatase 101 Lxk-E-Mdbnrdokarn Pept Total Protein 6.6 Albumin 3.7 Globulin 2.9 Albumin/Globulin Ratio 1.3 Lipase 12 L Plasma Lactate TSH Free T4 Urine Source CATH Urine Color YELLOW Urine Turbidity HAZY Urine pH 7.5 Ur Specific [place] 1.009 Urine Protein NEGATIVE Ur Glucose (Stick) NEGATIVE Ur Ketones (Stick) NEGATIVE Urine Blood NEGATIVE Urine Nitrite NEGATIVE Urine Bilirubin NEGATIVE Urobilinogen Dipstick 2 A Urine Leukocytes LARGE A Urine WBC (Auto) TNTC A Urine RBC (Auto) <10 U Epithel Cells (Auto) <10 Urine Bacteria (Auto) 1+ Urine Opiates Screen NONE DETECTED Ur Oxycodone Screen NONE DETECTED Ur Methadone, Qual NONE DETECTED Ur Barbiturates Screen NONE DETECTED Ur Phencyclidine Scrn NONE DETECTED Ur Amphetamines Screen NONE DETECTED U Benzodiazepines Scrn NONE DETECTED Urine Cocaine Screen NONE DETECTED U Cannabinoids Screen NONE DETECTED 06/29/19 06/29/19 06/29/19 20:44 20:44 20:44 WBC RBC Hgb Hct MCV MCH MCHC RDW Std Deviation Plt Count MPV Immature Gran % (Auto) Neut % (Auto) Lymph % (Auto) [place] % (Auto) Eos % (Auto) Baso % (Auto) Immature Gran # (Auto) Neut # (Auto) Lymph # (Auto) [place] # (Auto) Eos # (Auto) Baso # (Auto) Sodium Potassium Chloride Carbon Dioxide Anion Gap BUN Creatinine Estimated GFR/1.73 m2 BUN/Creatinine Ratio Glucose POC Glucose Calculated Osmolality Calcium Total Bilirubin AST ALT Alkaline Phosphatase Shu-H-Zkkpqpdwssl Pept 523 H Total Protein Albumin Globulin Albumin/Globulin Ratio Lipase Plasma Lactate 1.7 TSH Free T4 1.57 Urine Source Urine Color Urine Turbidity Urine pH Ur Specific [place] Urine Protein Ur Glucose (Stick) Ur Ketones (Stick) Urine Blood Urine Nitrite Urine Bilirubin Urobilinogen Dipstick Urine Leukocytes Urine WBC (Auto) Urine RBC (Auto) U Epithel Cells (Auto) Urine Bacteria (Auto) Urine Opiates Screen Ur Oxycodone Screen Ur Methadone, Qual Ur Barbiturates Screen Ur Phencyclidine Scrn Ur Amphetamines Screen U Benzodiazepines Scrn Urine Cocaine Screen U Cannabinoids Screen 06/30/19 07/01/19 07/01/19 20:29 05:05 12:32 WBC 8.67 RBC 4.12 L Hgb 12.1 Hct 37.2 MCV 90.3 MCH 29.4 MCHC 32.5 L RDW Std Deviation 13.9 Plt Count 314 D MPV 9.0 Immature Gran % (Auto) 0.6 H Neut % (Auto) 38.4 L Lymph % (Auto) 38.5 [place] % (Auto) 15.9 H Eos % (Auto) 5.8 Baso % (Auto) 0.8 Immature Gran # (Auto) 0.05 H Neut # (Auto) 3.33 Lymph # (Auto) 3.34 [place] # (Auto) 1.38 H Eos # (Auto) 0.50 Baso # (Auto) 0.07 Sodium Potassium Chloride Carbon Dioxide Anion Gap BUN Creatinine Estimated GFR/1.73 m2 BUN/Creatinine Ratio Glucose POC Glucose 139 H 120 H Calculated Osmolality Calcium Total Bilirubin AST ALT Alkaline Phosphatase Kqb-H-Skoajmmddrh Pept Total Protein Albumin Globulin Albumin/Globulin Ratio Lipase Plasma Lactate TSH Free T4 Urine Source Urine Color Urine Turbidity Urine pH Ur Specific [place] Urine Protein Ur Glucose (Stick) Ur Ketones (Stick) Urine Blood Urine Nitrite Urine Bilirubin Urobilinogen Dipstick Urine Leukocytes Urine WBC (Auto) Urine RBC (Auto) U Epithel Cells (Auto) Urine Bacteria (Auto) Urine Opiates Screen Ur Oxycodone Screen Ur Methadone, Qual Ur Barbiturates Screen Ur Phencyclidine Scrn Ur Amphetamines Screen U Benzodiazepines Scrn Urine Cocaine Screen U Cannabinoids Screen 07/01/19 07/02/19 07/02/19 18:14 00:22 05:54 WBC RBC Hgb Hct MCV MCH MCHC RDW Std Deviation Plt Count MPV Immature Gran % (Auto) Neut % (Auto) Lymph % (Auto) [place] % (Auto) Eos % (Auto) Baso % (Auto) Immature Gran # (Auto) Neut # (Auto) Lymph # (Auto) [place] # (Auto) Eos # (Auto) Baso # (Auto) Sodium Potassium Chloride Carbon Dioxide Anion Gap BUN Creatinine Estimated GFR/1.73 m2 BUN/Creatinine Ratio Glucose POC Glucose 98 109 H 91 Calculated Osmolality Calcium Total Bilirubin AST ALT Alkaline Phosphatase Svd-B-Drgxyjrsisr Pept Total Protein Albumin Globulin Albumin/Globulin Ratio Lipase Plasma Lactate TSH Free T4 Urine Source Urine Color Urine Turbidity Urine pH Ur Specific [place] Urine Protein Ur Glucose (Stick) Ur Ketones (Stick) Urine Blood Urine Nitrite Urine Bilirubin Urobilinogen Dipstick Urine Leukocytes Urine WBC (Auto) Urine RBC (Auto) U Epithel Cells (Auto) Urine Bacteria (Auto) Urine Opiates Screen Ur Oxycodone Screen Ur Methadone, Qual Ur Barbiturates Screen Ur Phencyclidine Scrn Ur Amphetamines Screen U Benzodiazepines Scrn Urine Cocaine Screen U Cannabinoids Screen 07/02/19 07/02/19 07/02/19 11:37 18:24 20:49 WBC RBC Hgb Hct MCV MCH MCHC RDW Std Deviation Plt Count MPV Immature Gran % (Auto) Neut % (Auto) Lymph % (Auto) [place] % (Auto) Eos % (Auto) Baso % (Auto) Immature Gran # (Auto) Neut # (Auto) Lymph # (Auto) [place] # (Auto) Eos # (Auto) Baso # (Auto) Sodium Potassium Chloride Carbon Dioxide Anion Gap BUN Creatinine Estimated GFR/1.73 m2 BUN/Creatinine Ratio Glucose POC Glucose 107 H 122 H 115 H Calculated Osmolality Calcium Total Bilirubin AST ALT Alkaline Phosphatase Gxd-V-Pjvamvvnvud Pept Total Protein Albumin Globulin Albumin/Globulin Ratio Lipase Plasma Lactate TSH Free T4 Urine Source Urine Color Urine Turbidity Urine pH Ur Specific [place] Urine Protein Ur Glucose (Stick) Ur Ketones (Stick) Urine Blood Urine Nitrite Urine Bilirubin Urobilinogen Dipstick Urine Leukocytes Urine WBC (Auto) Urine RBC (Auto) U Epithel Cells (Auto) Urine Bacteria (Auto) Urine Opiates Screen Ur Oxycodone Screen Ur Methadone, Qual Ur Barbiturates Screen Ur Phencyclidine Scrn Ur Amphetamines Screen U Benzodiazepines Scrn Urine Cocaine Screen U Cannabinoids Screen 07/03/19 07/03/19 07/03/19 00:25 05:50 11:51 WBC RBC Hgb Hct MCV MCH MCHC RDW Std Deviation Plt Count MPV Immature Gran % (Auto) Neut % (Auto) Lymph % (Auto) [place] % (Auto) Eos % (Auto) Baso % (Auto) Immature Gran # (Auto) Neut # (Auto) Lymph # (Auto) [place] # (Auto) Eos # (Auto) Baso # (Auto) Sodium Potassium Chloride Carbon Dioxide Anion Gap BUN Creatinine Estimated GFR/1.73 m2 BUN/Creatinine Ratio Glucose POC Glucose 129 H 103 121 H Calculated Osmolality Calcium Total Bilirubin AST ALT Alkaline Phosphatase Mfi-Q-Rbxnhxsmmss Pept Total Protein Albumin Globulin Albumin/Globulin Ratio Lipase Plasma Lactate TSH Free T4 Urine Source Urine Color Urine Turbidity Urine pH Ur Specific [place] Urine Protein Ur Glucose (Stick) Ur Ketones (Stick) Urine Blood Urine Nitrite Urine Bilirubin Urobilinogen Dipstick Urine Leukocytes Urine WBC (Auto) Urine RBC (Auto) U Epithel Cells (Auto) Urine Bacteria (Auto) Urine Opiates Screen Ur Oxycodone Screen Ur Methadone, Qual Ur Barbiturates Screen Ur Phencyclidine Scrn Ur Amphetamines Screen U Benzodiazepines Scrn Urine Cocaine Screen U Cannabinoids Screen 07/03/19 07/04/19 07/04/19 17:47 01:03 05:52 WBC RBC Hgb Hct MCV MCH MCHC RDW Std Deviation Plt Count MPV Immature Gran % (Auto) Neut % (Auto) Lymph % (Auto) [place] % (Auto) Eos % (Auto) Baso % (Auto) Immature Gran # (Auto) Neut # (Auto) Lymph # (Auto) [place] # (Auto) Eos # (Auto) Baso # (Auto) Sodium Potassium Chloride Carbon Dioxide Anion Gap BUN Creatinine Estimated GFR/1.73 m2 BUN/Creatinine Ratio Glucose POC Glucose 120 H 110 H 115 H Calculated Osmolality Calcium Total Bilirubin AST ALT Alkaline Phosphatase Qwn-P-Zhcavvzzayj Pept Total Protein Albumin Globulin Albumin/Globulin Ratio Lipase Plasma Lactate TSH Free T4 Urine Source Urine Color Urine Turbidity Urine pH Ur Specific [place] Urine Protein Ur Glucose (Stick) Ur Ketones (Stick) Urine Blood Urine Nitrite Urine Bilirubin Urobilinogen Dipstick Urine Leukocytes Urine WBC (Auto) Urine RBC (Auto) U Epithel Cells (Auto) Urine Bacteria (Auto) Urine Opiates Screen Ur Oxycodone Screen Ur Methadone, Qual Ur Barbiturates Screen Ur Phencyclidine Scrn Ur Amphetamines Screen U Benzodiazepines Scrn Urine Cocaine Screen U Cannabinoids Screen 07/04/19 07/04/19 07/04/19 11:36 11:36 12:27 WBC 9.99 RBC 4.85 Hgb 14.3 Hct 43.8 MCV 90.3 MCH 29.5 MCHC 32.6 L RDW Std Deviation 14.0 Plt Count 375 MPV 9.4 Immature Gran % (Auto) 0.6 H Neut % (Auto) 60.5 Lymph % (Auto) 23.2 [place] % (Auto) 13.1 H Eos % (Auto) 1.1 Baso % (Auto) 1.5 H Immature Gran # (Auto) 0.06 H Neut # (Auto) 6.04 Lymph # (Auto) 2.32 [place] # (Auto) 1.31 H Eos # (Auto) 0.11 Baso # (Auto) 0.15 Sodium 136 Potassium 3.9 Chloride 99 Carbon Dioxide 21 L Anion Gap 16 BUN 20 Creatinine 0.6 Estimated GFR/1.73 m2 > 60 BUN/Creatinine Ratio 33 Glucose 133 H POC Glucose 104 Calculated Osmolality 276 Calcium 9.0 Total Bilirubin 0.62 AST 42 H ALT 18 Alkaline Phosphatase 87 Gba-J-Wglscdadura Pept Total Protein 6.8 Albumin 3.0 L Globulin 3.8 Albumin/Globulin Ratio 0.8 Lipase Plasma Lactate TSH Free T4 Urine Source Urine Color Urine Turbidity Urine pH Ur Specific [place] Urine Protein Ur Glucose (Stick) Ur Ketones (Stick) Urine Blood Urine Nitrite Urine Bilirubin Urobilinogen Dipstick Urine Leukocytes Urine WBC (Auto) Urine RBC (Auto) U Epithel Cells (Auto) Urine Bacteria (Auto) Urine Opiates Screen Ur Oxycodone Screen Ur Methadone, Qual Ur Barbiturates Screen Ur Phencyclidine Scrn Ur Amphetamines Screen U Benzodiazepines Scrn Urine Cocaine Screen U Cannabinoids Screen 07/04/19 07/04/19 07/05/19 18:15 22:51 05:46 WBC RBC Hgb Hct MCV MCH MCHC RDW Std Deviation Plt Count MPV Immature Gran % (Auto) Neut % (Auto) Lymph % (Auto) [place] % (Auto) Eos % (Auto) Baso % (Auto) Immature Gran # (Auto) Neut # (Auto) Lymph # (Auto) [place] # (Auto) Eos # (Auto) Baso # (Auto) Sodium Potassium Chloride Carbon Dioxide Anion Gap BUN Creatinine Estimated GFR/1.73 m2 BUN/Creatinine Ratio Glucose POC Glucose 103 95 99 Calculated Osmolality Calcium Total Bilirubin AST ALT Alkaline Phosphatase Aji-A-Lnyfxwdwdag Pept Total Protein Albumin Globulin Albumin/Globulin Ratio Lipase Plasma Lactate TSH Free T4 Urine Source Urine Color Urine Turbidity Urine pH Ur Specific [place] Urine Protein Ur Glucose (Stick) Ur Ketones (Stick) Urine Blood Urine Nitrite Urine Bilirubin Urobilinogen Dipstick Urine Leukocytes Urine WBC (Auto) Urine RBC (Auto) U Epithel Cells (Auto) Urine Bacteria (Auto) Urine Opiates Screen Ur Oxycodone Screen Ur Methadone, Qual Ur Barbiturates Screen Ur Phencyclidine Scrn Ur Amphetamines Screen U Benzodiazepines Scrn Urine Cocaine Screen U Cannabinoids Screen 07/05/19 07/05/19 07/05/19 12:12 18:48 20:48 WBC RBC Hgb Hct MCV MCH MCHC RDW Std Deviation Plt Count MPV Immature Gran % (Auto) Neut % (Auto) Lymph % (Auto) [place] % (Auto) Eos % (Auto) Baso % (Auto) Immature Gran # (Auto) Neut # (Auto) Lymph # (Auto) [place] # (Auto) Eos # (Auto) Baso # (Auto) Sodium Potassium Chloride Carbon Dioxide Anion Gap BUN Creatinine Estimated GFR/1.73 m2 BUN/Creatinine Ratio Glucose POC Glucose 99 106 H 98 Calculated Osmolality Calcium Total Bilirubin AST ALT Alkaline Phosphatase Fcj-M-Mqfmlbitaod Pept Total Protein Albumin Globulin Albumin/Globulin Ratio Lipase Plasma Lactate TSH Free T4 Urine Source Urine Color Urine Turbidity Urine pH Ur Specific [place] Urine Protein Ur Glucose (Stick) Ur Ketones (Stick) Urine Blood Urine Nitrite Urine Bilirubin Urobilinogen Dipstick Urine Leukocytes Urine WBC (Auto) Urine RBC (Auto) U Epithel Cells (Auto) Urine Bacteria (Auto) Urine Opiates Screen Ur Oxycodone Screen Ur Methadone, Qual Ur Barbiturates Screen Ur Phencyclidine Scrn Ur Amphetamines Screen U Benzodiazepines Scrn Urine Cocaine Screen U Cannabinoids Screen 07/06/19 07/06/19 07/06/19 00:06 07:12 11:50 WBC RBC Hgb Hct MCV MCH MCHC RDW Std Deviation Plt Count MPV Immature Gran % (Auto) Neut % (Auto) Lymph % (Auto) [place] % (Auto) Eos % (Auto) Baso % (Auto) Immature Gran # (Auto) Neut # (Auto) Lymph # (Auto) [place] # (Auto) Eos # (Auto) Baso # (Auto) Sodium Potassium Chloride Carbon Dioxide Anion Gap BUN Creatinine Estimated GFR/1.73 m2 BUN/Creatinine Ratio Glucose POC Glucose 110 H 93 110 H Calculated Osmolality Calcium Total Bilirubin AST ALT Alkaline Phosphatase Jiv-K-Izdcebvmirt Pept Total Protein Albumin Globulin Albumin/Globulin Ratio Lipase Plasma Lactate TSH Free T4 Urine Source Urine Color Urine Turbidity Urine pH Ur Specific [place] Urine Protein Ur Glucose (Stick) Ur Ketones (Stick) Urine Blood Urine Nitrite Urine Bilirubin Urobilinogen Dipstick Urine Leukocytes Urine WBC (Auto) Urine RBC (Auto) U Epithel Cells (Auto) Urine Bacteria (Auto) Urine Opiates Screen Ur Oxycodone Screen Ur Methadone, Qual Ur Barbiturates Screen Ur Phencyclidine Scrn Ur Amphetamines Screen U Benzodiazepines Scrn Urine Cocaine Screen U Cannabinoids Screen 07/06/19 07/07/19 07/07/19 18:33 00:05 05:42 WBC RBC Hgb Hct MCV MCH MCHC RDW Std Deviation Plt Count MPV Immature Gran % (Auto) Neut % (Auto) Lymph % (Auto) [place] % (Auto) Eos % (Auto) Baso % (Auto) Immature Gran # (Auto) Neut # (Auto) Lymph # (Auto) [place] # (Auto) Eos # (Auto) Baso # (Auto) Sodium Potassium Chloride Carbon Dioxide Anion Gap BUN Creatinine Estimated GFR/1.73 m2 BUN/Creatinine Ratio Glucose POC Glucose 87 95 82 Calculated Osmolality Calcium Total Bilirubin AST ALT Alkaline Phosphatase Ulr-K-Zlizauovheg Pept Total Protein Albumin Globulin Albumin/Globulin Ratio Lipase Plasma Lactate TSH Free T4 Urine Source Urine Color Urine Turbidity Urine pH Ur Specific [place] Urine Protein Ur Glucose (Stick) Ur Ketones (Stick) Urine Blood Urine Nitrite Urine Bilirubin Urobilinogen Dipstick Urine Leukocytes Urine WBC (Auto) Urine RBC (Auto) U Epithel Cells (Auto) Urine Bacteria (Auto) Urine Opiates Screen Ur Oxycodone Screen Ur Methadone, Qual Ur Barbiturates Screen Ur Phencyclidine Scrn Ur Amphetamines Screen U Benzodiazepines Scrn Urine Cocaine Screen U Cannabinoids Screen CT HEAD W/O CONTRAST -- FINDINGS: There is stable severe opacification of the left maxillary sinus indicating chronic sinusitis. There is some stable mild patchy cerebral white matter chronic microvascular ischemia. No intracranial mass or hemorrhage. The skull is intact. IMPRESSION: No acute process. CHEST X-RAY -- FINDINGS: There is some scattered linear atelectasis in the left lung base. Otherwise the lungs are clear. Heart size remains borderline enlarged. Lung volumes remain low. IMPRESSION: No specific abnormality. EEG -- REPORT: This is a digitally recorded EEG on a 73-year-old patient with odd behavior, question of psychosis, reported previously diagnosed dementia and depression. There is question of subclinical seizure. FINDINGS: Much of the record is obscured by frontal muscle contraction artifact. Legible portions show low amplitude polymorphic and rhythmic theta symmetrically across the frontal and central regions. Ten hertz posterior rhythm is occasionally identified, often obscured by muscle contraction artifact. Drowsing and stage II sleep were not recorded. Photic stimulation did not significantly alter the record. Hyperventilation was not done. No definite epileptiform discharge was identified. INTERPRETATION: Normal electroencephalogram. Repeat EKG indicates NSR and normal QTc. - Assessment & Plan (1) Alzheimer's disease with late onset Status: Suspected (2) Dementia in other diseases classified elsewhere with behavioral disturbance Status: Suspected (3) Psychotic disorder with delusions due to known physiological condition Status: Suspected (4) Delirium Status: Acute - Progress Note Disposition: --Recommend pursuing acute psychiatric hospitalization for safety & stabilization once guardianship is in place. --Agree with continuing Depakote at current dosages & schedules for mood & behaviors. Monitor for hyponatremia, hyperammonemia, and obtain VPA trough serum level. --Would consider consolidating her AP regimen from BID Geodon to low-dose Seroquel at bedtime (eg, 50mg QHS) given risk-benefit analysis, titrating up de pending upon symptomology (eg, worsening psychosis, agitation, etc.) by 25-50mg dosage increments (eg, from 50mg QHS to 75mg QHS & 25mg QAM). --Would consider initiating Aricept 5mg PO QHS for likely dementia & delirium. --Please call w/ any questions of concerns. Glad to be of assistance. Psychiatric Specialty Exam Allergies/Adverse Reactions: Allergies Allergy/AdvReac Type Severity Reaction Status Date / Time Neuromuscular Blockers, AdvReac Severe SWELLING Verified 06/29/19 19:46 Steroidal [Steroidal Neuromuscular Blockers] Current Medications: Generic Name Dose Route Start Last Admin Trade Name Freq PRN Reason Stop Dose Admin Acetaminophen 650 mg 06/30/19 00:47 07/07/19 09:52 Tylenol PO 650 mg Q6H PRN PRN Administration Fever or Pain Allopurinol 100 mg 06/30/19 09:00 07/07/19 09:53 Zyloprim PO 100 mg DAILY CARY Administration Amlodipine Besylate 5 mg 07/06/19 11:30 07/07/19 09:53 Norvasc PO 5 mg DAILY CARY Administration Atorvastatin Calcium 10 mg 06/30/19 21:00 07/06/19 22:18 Lipitor PO 10 mg QHS CARY Administration Divalproex Sodium 250 mg 07/05/19 09:00 07/07/19 09:53 Depakote Sprinkle PO 250 mg DAILY CARY Administration Divalproex Sodium 500 mg 07/04/19 21:00 07/06/19 22:18 Depakote PO 500 mg QHS CARY Administration Enoxaparin Sodium 40 mg 07/04/19 10:45 07/07/19 09:53 Lovenox SUBQ 40 mg Q24H CARY Administration Famotidine 20 mg 06/30/19 09:00 07/07/19 09:53 Pepcid PO 20 mg DAILY CARY Administration Fesoterodine Fumarate 4 mg 06/30/19 09:00 07/07/19 09:52 Toviaz PO 4 mg DAILY CARY Administration Insulin Human Lispro 0 units 07/01/19 12:15 07/07/19 05:12 Humalog SUBQ Not Given Q6H [facility] Protocol Levothyroxine Sodium 50 microgm 06/30/19 21:00 07/06/19 22:18 Synthroid PO 50 microgm HS CARY Administration Montelukast Sodium 10 mg 06/30/19 21:00 07/06/19 22:22 Singulair PO 10 mg QHS CARY Administration Nystatin 0 gm 06/30/19 09:00 07/07/19 09:53 Mycostatin Powder TOP 1 dose BID CARY Administration Ondansetron HCl 4 mg 06/30/19 00:47 Zofran IV Q4H PRN PRN Nausea And Vomiting Oxybenzone/Padimate O/Dimethicone 0 gm 07/02/19 11:00 Blistex Medicated Tanner Lip [employer]mers TOP PRN PRN Dry Lips Estradiol(Yuvafem) 1 each 07/03/19 21:00 07/06/19 22:20 Vag Supp VAG Not Given MoFr CARY Phenazopyridine HCl 200 mg 06/30/19 00:47 07/02/19 09:16 Pyridium PO 200 mg TID PRN PRN Administration Mild Pain Propylene Glycol 0 each 06/30/19 09:00 07/07/19 09:53 Systane Eye Drops OPH 1 each BID CARY Administration Verapamil HCl 240 mg 06/30/19 09:00 07/07/19 09:52 Isoptin Sr PO 240 mg BID CARY Administration Ziprasidone 40 mg 07/01/19 21:00 07/06/19 22:17 Geodon PO 40 mg QHS CARY Administration Ziprasidone 20 mg 07/02/19 09:00 07/07/19 09:52 Geodon PO 20 mg DAILY CARY Administration Vital Signs: Temperature 97.9 F 07/07/19 08:00 Pulse Rate 81 07/07/19 08:00 Respiratory Rate 15 07/07/19 08:00 Blood Pressure 159/91 07/07/19 08:00 O2 Sat by Pulse Oximetry 96 07/07/19 08:00 General Appearance/Manner: Disheveled, Unkempt Musculoskeletal (Strength/Tone): Normal (upon gross inspection) Musculoskeletal (Gait/Station): Lying in Bed Speech: Increased Prosody, Decreased Spontaneity Language: Expressive Aphasia, Receptive Aphasia, Other (word salad) Mood: Labile Affect: Labile Thought Processes: Confused, Disorganized Associations: ABDIFATAH Thought Content: Other (Grossly psychotic). negative: Suicidal Ideations (none evidenced), Homicidal Ideations (none evidenced) Orientation: Person (?). negative: Place, Time, Situation Memory: Impaired Recent, Impaired Remote Fund of Knowledge: Inadequate Attention/Concentration: Poor, Alert Insight/Judgment: Poor
--- NOTE | 2019-07-07 17:22 | PROGRESS NOTE ---
DATE: 07/07/2019 SUBJECTIVE: Today, Ms. Mercado refers to be doing well. No new complaints. She still remains quite confused. Otherwise, she is very polite during the encounter. OBJECTIVE: Vital signs: Blood pressure is 154/90, pulse of 79, respirations 15, temperature 98 degrees. General: Ms. Mercado is a 73-year-old elderly female. She is in bed. No distress. Mucosa is pink and moist. Anicteric. Acyanotic. Neck: Supple. Chest: Good air entry bilaterally. No crepitations. No rhonchi. Cardiovascular: Regular rate and rhythm. Abdomen: Soft, distended, but nontender. Extremities: No pedal edema. Central Nervous System: The patient is awake, alert. Follows basic commands, but she is disoriented to place and to time. Seems for the most part quite polite during the interview. LABORATORY DATA: None for today. Microbiology shows urine cultures positive for Escherichia coli. ASSESSMENT: 1. Delirium with psychotic features. 2. Recurrent urinary tract infection with current culture showing Klebsiella pneumoniae. The patient has completed antimicrobial coverage. 3. History of Alzheimer's dementia with occasional behavioral disturbances. The patient has been evaluated by psychiatry. 4. 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 Recommendation from Psychiatry has been noted and changes made to the patient's medication list. cc: Tomy Raya MD
[2019-07-07] MEDS: SYNTHROID PO SCH (21:02)
[2019-07-07] MEDS: DEPAKOTE PO SCH (21:02)
[2019-07-07] MEDS: SINGULAIR PO SCH (21:02)
[2019-07-07] MEDS: LIPITOR PO SCH (21:02)
[2019-07-07] MEDS: SEROQUEL PO SCH (21:36)
[2019-07-08 05:30] LABS: HEMATOCRIT 41.3 % (37.0-47.0); HEMOGLOBIN 13.5 g/dL (12.0-16.0); MCH 29.7 PG (27-31); MCHC 32.7 g/dL (33-37); MPV 9.3 FL (7.4-10.4); RBC 4.54 XMIL (4.2-5.4); RDW 13.8 % (11.5-14.5); WBC 7.46 X1000 (4.8-10.8)
[2019-07-08 06:03] LABS: AGAP 11; ALBUMIN 3.2 g/dL (3.5-5.0); BUN 22 mg/dL (8-22); CALCIUM 9.1 mg/dL (8.8-10.2); CHLORIDE 99 mmol/L (98-107); COSMO 277; CREATININE 0.6 mg/dL (0.5-0.9); ESTIMATED GFR > 60; GLUCOSE 94 mg/dL (70-104); PHOSPHORUS 3.7 mg/dL (2.7-4.5); POTASSIUM 3.5 mmol/L (3.5-5.1); SODIUM 137 mmol/L (136-145); TCO2 27 mmol/L (25-35)
[2019-07-08] MEDS: HUMALOG SUBQ SCH ×2 (06:50→17:24)
[2019-07-08] MEDS: MYRBETRIQ E.R. PO SCH (09:52)
[2019-07-08] MEDS: PEPCID PO SCH (09:52)
[2019-07-08] MEDS: ISOPTIN SR PO SCH (09:52)
[2019-07-08] MEDS: ARICEPT PO SCH (09:53)
[2019-07-08] MEDS: TOVIAZ PO SCH (09:53)
[2019-07-08] MEDS: NORVASC PO SCH (09:53)
[2019-07-08] MEDS: DEPAKOTE SPRINKLE PO SCH (09:53)
[2019-07-08] MEDS: MYCOSTATIN POWDER TOP SCH (09:54)
[2019-07-08] MEDS: LOVENOX SUBQ SCH (10:15)
[2019-07-08] MEDS: ZYLOPRIM PO SCH (10:15)
[2019-07-08] MEDS: TYLENOL PO PRN (10:19)
--- NOTE | 2019-07-08 16:00 | PROGRESS NOTE ---
DATE: 07/08/2019 SUBJECTIVE: This morning Ms. Martin refers to be doing well. She was not really giving any reasonable answers to the questions, but she will articulate very clearly but not in response to whatever that she was being asked. OBJECTIVE: Vital signs: Blood pressure is 144/69, pulse of 71 respiration is 18, temperature is 98.4, patient was saturating 100% on room air. General: Ms. Martin is a 73-year-old, elderly, female. She was in bed, in no distress. HEENT: Mucosa is pink and moist. Anicteric. Acyanotic. Neck: Supple. Chest: Good air entry bilaterally. There was no crepitations, no rhonchi. Cardiovascular: Regular rate and rhythm. GI: Abdomen was soft, nontender. Bowel sounds present. Extremities: No pedal edema. There are bilateral scars on both knees from previous knee surgeries. MOBILE PET GROOMER: The patient is awake, alert, oriented to person but disoriented to time and place. Psychiatric: The patient is polite, but keeps talking off target. She does not respond appropriately to the questions asked. She keeps saying that she is in a bathroom. LABORATORY DATA: CBC is completely normal. Chemistry is also within normal range. So far, urine culture has grown Klebsiella pneumoniae which is sensitive to Pip-Tazo, Levaquin and cefazolin. The patient has already completed treatment with antimicrobial therapy. ASSESSMENT: 1. Delirium with psychotic features. The patient continues to be very disorganized in her thought process. She is clearly showing evidence of not being able to make personal health related decisions and I recommend that she definitely gets a guardian to help her with medical decision making. 2. Recurrent urinary tract infection with current culture showing Klebsiella pneumoniae. The patient has completed antimicrobial therapy. 3. Advanced Alzheimer's dementia with occasional behavioral disturbances. The patient has been evaluated by Psych. 4. 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 Psychiatry has already made recommendations as to her antipsychotic medications, we started that yesterday. We are going to continue to observe. In general, Ms. Martin is completely disorganized in her thought process. She is showing clinical evidence of psychosis, even though her urinary tract infection has completely been treated. We are going to continue with her antipsychotic medications. She is still pending placement to a psych facility per recommendation from the psychiatrist and we have also recommended that she gets a guardian to help her with her medical decisions going forward. cc: Tomy Raya MD
[2019-07-08] MEDS: SYSTANE EYE DROPS OPH SCH (17:25)
[2019-07-09] MEDS: ISOPTIN SR PO SCH ×3 (00:01→22:08)
[2019-07-09] MEDS: SEROQUEL PO SCH ×2 (00:01→22:08)
[2019-07-09] MEDS: SINGULAIR PO SCH ×2 (00:01→22:08)
[2019-07-09] MEDS: LIPITOR PO SCH ×2 (00:01→22:08)
[2019-07-09] MEDS: DEPAKOTE PO SCH ×2 (00:01→22:08)
[2019-07-09] MEDS: MYCOSTATIN POWDER TOP SCH ×3 (00:02→22:10)
[2019-07-09] MEDS: SYSTANE EYE DROPS OPH SCH ×3 (00:40→22:08)
[2019-07-09] MEDS: HUMALOG SUBQ SCH ×4 (00:43→17:23)
[2019-07-09] MEDS: ZYLOPRIM PO SCH (09:41)
[2019-07-09] MEDS: ARICEPT PO SCH (09:41)
[2019-07-09] MEDS: DEPAKOTE SPRINKLE PO SCH (09:41)
[2019-07-09] MEDS: NORVASC PO SCH (09:41)
[2019-07-09] MEDS: MYRBETRIQ E.R. PO SCH (09:41)
[2019-07-09] MEDS: PEPCID PO SCH (09:41)
[2019-07-09] MEDS: TOVIAZ PO SCH (09:41)
[2019-07-09] MEDS: LOVENOX SUBQ SCH (09:54)
--- NOTE | 2019-07-09 14:41 | PROGRESS NOTE ---
DATE: 07/09/2019 SUBJECTIVE: I have seen and examined Ms. Martin today. Ms. Martin refers to be doing a lot better. She is more alert and more communicative. We are still pending guardianship to get her to a safe discharge. OBJECTIVE: Vital Signs: Blood pressure is 145/72, pulse of 74, respirations are 17, temperature is 97.9 degrees. General Examination: Ms. Martin is a 73-year-old, elderly, female. She is in bed. No distress. HEENT: Mucosa is pink and moist. Anicteric. Acyanotic. Neck: Supple. Chest: Clear to auscultation. No crepitations. No rhonchi. Cardiovascular: Regular rate and rhythm. No murmurs, no rubs, no gallops. GI: Abdomen was soft. Bowel sounds present. Extremities: No pedal edema. There are bilateral scars on both knees from previous surgery. SYSTEMATIC THEOLOGY PROFESSOR: The patient is awake, alert, oriented to person but disoriented to place and time. Psychiatry: Patient continues to be polite but she still responds inappropriately to questions but with very clear speech. No laboratory data for this morning. ASSESSMENT: 1. Klebsiella pneumoniae urinary tract infection. This has been completely treated. 2. Delirium, most likely due to underlying urinary tract infection associated with psychotic features, improved. 3. Advanced Alzheimer's dementia with occasional behavioral disturbances. 4. 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 The patient has been evaluated by psychiatry. Recommendations for antipsychotic medications have been noted. We will continue to monitor. Ms. Martin continues to be very disorganized in her thought process. We will be pending guardianship to get her to a safe discharge place. cc: Tomy Raya MD
[2019-07-09] MEDS: SYNTHROID PO SCH ×2 (22:08)
[2019-07-10] MEDS: HUMALOG SUBQ SCH ×3 (06:40→11:51)
[2019-07-10] MEDS: ZYLOPRIM PO SCH (10:32)
[2019-07-10] MEDS: SYSTANE EYE DROPS OPH SCH ×2 (10:32→21:36)
[2019-07-10] MEDS: DEPAKOTE SPRINKLE PO SCH (10:32)
[2019-07-10] MEDS: LOVENOX SUBQ SCH (10:32)
[2019-07-10] MEDS: PEPCID PO SCH (10:32)
[2019-07-10] MEDS: MYRBETRIQ E.R. PO SCH (10:33)
[2019-07-10] MEDS: NORVASC PO SCH (10:33)
[2019-07-10] MEDS: ISOPTIN SR PO SCH ×2 (10:33→21:09)
[2019-07-10] MEDS: TOVIAZ PO SCH (10:33)
[2019-07-10] MEDS: MYCOSTATIN POWDER TOP SCH ×2 (10:34→21:11)
[2019-07-10] MEDS: ARICEPT PO SCH (10:34)
--- NOTE | 2019-07-10 15:07 | PROGRESS NOTE ---
DATE: 07/10/2019 SUBJECTIVE: This morning Miss Martin refers to be doing well and did not have any new complaints. OBJECTIVE: Vital signs: Blood pressure is 145/70, pulse of 82, respiration is 18, temperature 98.1 degrees, and the patient is saturating 100% on room air. General: Miss Martin is a 73-year- old, elderly, female. She is in bed. No distress. heent: Mucus is pink and moist. Anicteric. Acyanotic. Neck: Supple. Chest: Clear to auscultation. No crepitations. No rhonchi. Cardiovascular: Regular rate and rhythm. No murmurs, no rubs, no gallops. Gastrointestinal: Abdomen is soft, nontender. Bowel sounds present. Extremities: No pedal edema. Both knees have old surgical scars. CENTRAL NERVOUS SYSTEM: The patient is awake, alert, and oriented to person. She says she is in the hospital, but she was not able to tell me which hospital she is in. She is disoriented to time. The patient continues to be very polite, but delusional at the same time. LABORATORY DATA: No laboratory data for today. The patient is tolerating her meals every now and then. ASSESSMENT: 1. Klebsiella pneumoniae urinary tract infection, treated. 2. Delirium secondary to urinary tract infection associated with psychotic features. 3. Advanced Alzheimer's dementia with occasional behavioral disturbances. 4. 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 The patient was evaluated by Psychiatry. Recommendations have been followed. DISPOSITION: Pending guardianship role and placement. cc: Tomy Raya MD
[2019-07-10] MEDS: LIPITOR PO SCH (21:10)
[2019-07-10] MEDS: SEROQUEL PO SCH (21:10)
[2019-07-10] MEDS: SYNTHROID PO SCH (21:11)
[2019-07-10] MEDS: SINGULAIR PO SCH (21:11)
[2019-07-10] MEDS: PATIENT'S OWN MED VAG SCH (21:12)
[2019-07-10] MEDS: DEPAKOTE PO SCH (21:36)
[2019-07-11] MEDS: HUMALOG SUBQ SCH ×3 (02:45→20:50)
[2019-07-11] MEDS: TYLENOL PO PRN (06:28)
[2019-07-11] MEDS: ZYLOPRIM PO SCH (09:49)
[2019-07-11] MEDS: ARICEPT PO SCH (09:49)
[2019-07-11] MEDS: TOVIAZ PO SCH (09:49)
[2019-07-11] MEDS: DEPAKOTE SPRINKLE PO SCH (09:49)
[2019-07-11] MEDS: MYRBETRIQ E.R. PO SCH (09:49)
[2019-07-11] MEDS: NORVASC PO SCH (09:49)
[2019-07-11] MEDS: PEPCID PO SCH (09:49)
[2019-07-11] MEDS: LOVENOX SUBQ SCH (09:49)
[2019-07-11] MEDS: ISOPTIN SR PO SCH ×2 (09:49→20:56)
[2019-07-11] MEDS: SYSTANE EYE DROPS OPH SCH ×2 (09:49→21:13)
[2019-07-11] MEDS: MYCOSTATIN POWDER TOP SCH ×2 (09:50→20:57)
--- NOTE | 2019-07-11 15:43 | PROGRESS NOTE ---
DATE: 07/11/2019 SUBJECTIVE: I have seen and examined Ms. Martin. Today, she refers to be doing well. No new complaints. OBJECTIVE: Vital signs: Blood pressure is 151/79, pulse of 65, respiration is 18, temperature 97.9 degrees. General: Ms. Martin is a 73-year-old female. She is in bed, no distress. HEENT: Mucosa is pink and moist. Anicteric. Acyanotic. Neck: Supple. Chest: Good air entry bilateral. There was no crepitations, no rhonchi. Cardiovascular: Regular rate and rhythm. There is no murmurs, no rubs, no gallops. GI: Abdomen is soft, nontender. Bowel sounds present. Extremities: No pedal edema. Both knees have old surgical scars. SENIOR SYSTEMS DEVELOPER: Patient is awake, alert, oriented to person, disoriented to place and time. Psychiatric: Patient is very polite, but she continues to be delusional. She says things off the chart, I understand last night she was extremely agitated. LABORATORY DATA: None for today. Glucose is 90. ASSESSMENT: 1. Klebsiella pneumoniae urinary tract infection treated. 2. Delirium on presentation secondary to urinary tract infection associated with psychotic features. 3. Advanced Alzheimer's dementia with occasionally behavioral disturbances. 4. Psychotic disorder with delusion due to other physiological medical condition. The patient was evaluated by Psychiatry. We will continue with their recommendations. 5. Neck pain presumably due to degenerative disk disease. We will get an initial x-ray of the neck. Will continue with pain management and get a cervical spine and follow it up accordingly. cc: Tomy Raya MD
--- NOTE | 2019-07-11 15:49 | Diag Imaging Result Doc PS360 ---
EXAM: CERVICAL SPINE 2-VIEWS HISTORY: neck pain TECHNIQUE: Three views COMPARISON: None. FINDINGS: There is reversal of the normal curvature as well as mild scoliosis. Prominent bone spurring in the lower cervical spine. No precervical soft tissue swelling. IMPRESSION: Reversal of the normal curvature with prominent degenerative changes in lower cervical spine. Electronically signed by Piero Mendenhall 07/11/2019 3:47 PM
[2019-07-11] MEDS ORDERED: CELEBREX PO ONE (16:33)
[2019-07-11] MEDS: SINGULAIR PO SCH (20:56)
[2019-07-11] MEDS: DEPAKOTE PO SCH (20:56)
[2019-07-11] MEDS: LIPITOR PO SCH (20:56)
[2019-07-11] MEDS: SYNTHROID PO SCH (20:56)
[2019-07-11] MEDS: SEROQUEL PO SCH (20:56)
[2019-07-12] MEDS: HUMALOG SUBQ SCH ×4 (04:24→18:46)
[2019-07-12] MEDS: ISOPTIN SR PO SCH ×3 (04:33→21:10)
[2019-07-12] MEDS: DEPAKOTE PO SCH ×2 (04:34→21:11)
[2019-07-12] MEDS: LIPITOR PO SCH ×2 (04:34→21:11)
[2019-07-12] MEDS: SEROQUEL PO SCH ×2 (04:35→21:11)
[2019-07-12] MEDS: TYLENOL PO PRN (06:51)
[2019-07-12] MEDS: MYRBETRIQ E.R. PO SCH (09:45)
[2019-07-12] MEDS: PEPCID PO SCH (09:46)
[2019-07-12] MEDS: DEPAKOTE SPRINKLE PO SCH (09:46)
[2019-07-12] MEDS: ZYLOPRIM PO SCH (09:46)
[2019-07-12] MEDS: CELEBREX PO SCH (09:46)
[2019-07-12] MEDS: NORVASC PO SCH (09:46)
[2019-07-12] MEDS: TOVIAZ PO SCH (09:46)
[2019-07-12] MEDS: SYSTANE EYE DROPS OPH SCH ×2 (09:46→21:15)
[2019-07-12] MEDS: ARICEPT PO SCH (09:46)
[2019-07-12] MEDS: MYCOSTATIN POWDER TOP SCH ×2 (09:47→21:20)
[2019-07-12] MEDS: LOVENOX SUBQ SCH (10:39)
--- NOTE | 2019-07-12 14:49 | PROGRESS NOTE ---
DATE: 07/12/2019 SUBJECTIVE: I have seen and examined Ms. Martin today. She refers to be doing well. She continues to have periods of delusional thoughts and talking out of her head. OBJECTIVE: Vital Signs: Blood pressure is 153/69, pulse of 82, respirations 19, temperature 97.9 degrees. General: Ms. Martin is a 73-year-old, elderly, female. She is in bed. No distress. HEENT: Mucosa is pink and moist. Anicteric. Acyanotic. Neck: Supple. Chest: Clear to auscultation. No crepitations. No rhonchi. Cardiovascular: Regular rate and rhythm. No murmurs, no rubs, no gallops. GI: Abdomen is soft, nontender. Bowel sounds present. Extremities: No pedal edema. The patient has scars on the anterior knees, consistent with previous knee surgeries. TRADING MANAGER: The patient is awake, alert, oriented to person, still disoriented to place and time. She is very polite, but continues to be delusional. LABORATORY DATA: No laboratory data today. ASSESSMENT: 1. Klebsiella pneumoniae urinary tract infection. The patient has completed treatment during the hospital course. 2. Delirium on presentation secondary to urinary tract infection, with psychotic features. 3. Advanced Alzheimer's dementia with occasional behavioral disturbances. 4. Psychotic disorder with delusions due to other physiologic medical condition. The patient has been evaluated by Psychiatry. We will continue to follow their recommendations. 5. Degenerative cervical spine disease. Will continue with pain management and physical therapy. In general, I think Ms. Martin is doing fairly okay. She continues to have episodes of delusions. We are going to increase her Seroquel to 75 at night. We are still pending placement. cc: Tomy Raya MD MTDD
[2019-07-12] MEDS ORDERED: CALMOSEPTINE OINTMENT TOP PRN (17:03)
[2019-07-12] MEDS: SINGULAIR PO SCH (21:11)
[2019-07-12] MEDS: SYNTHROID PO SCH (21:11)
[2019-07-13] MEDS: HUMALOG SUBQ SCH ×4 (01:36→19:56)
[2019-07-13 05:16] LABS: HEMATOCRIT 39.4 % (37.0-47.0); HEMOGLOBIN 13.2 g/dL (12.0-16.0); MCH 30.3 PG (27-31); MCHC 33.5 g/dL (33-37); MCV 90.6 FL (81-99); MPV 9.8 FL (7.4-10.4); RBC 4.35 XMIL (4.2-5.4); RDW 14.3 % (11.5-14.5); WBC 7.16 X1000 (4.8-10.8)
[2019-07-13 05:24] LABS: AGAP 14; ALBUMIN 2.8 g/dL (3.5-5.0); BUN 16 mg/dL (8-22); CHLORIDE 105 mmol/L (98-107); COSMO 286; CREATININE 0.5 mg/dL (0.5-0.9); ESTIMATED GFR > 60; GLUCOSE 100 mg/dL (70-104); PHOSPHORUS 4.1 mg/dL (2.7-4.5); POTASSIUM 3.6 mmol/L (3.5-5.1); SODIUM 143 mmol/L (136-145); TCO2 24 mmol/L (25-35)
[2019-07-13] MEDS: ZYLOPRIM PO SCH (09:48)
[2019-07-13] MEDS: TOVIAZ PO SCH (09:48)
[2019-07-13] MEDS: PEPCID PO SCH (09:48)
[2019-07-13] MEDS: ISOPTIN SR PO SCH ×2 (09:48→21:33)
[2019-07-13] MEDS: DEPAKOTE SPRINKLE PO SCH (09:48)
[2019-07-13] MEDS: NORVASC PO SCH (09:48)
[2019-07-13] MEDS: CELEBREX PO SCH (09:48)
[2019-07-13] MEDS: ARICEPT PO SCH (09:49)
[2019-07-13] MEDS: LOVENOX SUBQ SCH (09:49)
[2019-07-13] MEDS: SYSTANE EYE DROPS OPH SCH ×2 (09:49→21:36)
[2019-07-13] MEDS: MYRBETRIQ E.R. PO SCH (09:49)
[2019-07-13] MEDS: MYCOSTATIN POWDER TOP SCH ×2 (09:50→21:36)
--- NOTE | 2019-07-13 16:46 | PROGRESS NOTE ---
DATE: 07/13/2019 SUBJECTIVE: I have seen and examined Ms. Martin today. She refers to be doing well, but she continues to be exhibiting bizarre behavior, saying things that are irrelevant and are nonexistent. OBJECTIVE: Vital signs: Blood pressure 133/69, pulse of 74, respirations 16, temperature 98.0 degrees. General: Ms. Martin is a 73-year-old female. She is in bed, no distress. HEENT: Mucosa is pink and moist. Anicteric. Acyanotic. Neck: Supple. Chest: Clear to auscultation. No crepitations. No rhonchi. Cardiovascular: Regular rate and rhythm. GI: Abdomen is soft, nontender. Bowel sounds present. Extremities: No pedal edema. Both knees have scars from previous knee surgery. PRODUCTION DEPARTMENT SUPERVISOR: Patient is awake, alert, oriented to person, disoriented to place and time. Psych: Ms. Martin is very polite, but she continues to exhibit bizarre behaviors. Occasional she will make a fist and then just raise the hand out of the blue. She continues to say things that are irrelevant to the conversation. She continues to be completely delusional. LABORATORY DATA: CBC is completely normal. Chemistry is also normal. The patient has completed treatment with antibiotics. ASSESSMENT: 1. Altered mental status on presentation. 2. Klebsiella pneumoniae urinary tract infection. Patient has completed antimicrobial therapy during the hospital course. 3. Delirium on presentation, presumably due to urinary tract infection with psychotic features. 4. Advanced Alzheimer's dementia with behavioral disturbances. 5. Psychotic disorder with delusions due to other physiologic medical condition. The patient has been evaluated by Psychiatry. We are going to continue following their recommendations. 6. Degenerative cervical spine disease. We will continue pain management and physical therapy. PLAN: In general, Ms. Martin has been in the hospital for the past 12 days. Initially presented because of altered mental status and bizarre behaviors. I think her mentation is kind of back to her baseline. Infection has completely be treated, but she continued to exhibit clear delusional tendencies. We are going to continue with her antipsychotic medications. She now has guardianship and we are pending psych placement. I understand a call has been made to [facility] and we are waiting for their response. Social Work and Case Management are working on placement. cc: Tomy Raya MD
[2019-07-13] MEDS: SINGULAIR PO SCH (21:33)
[2019-07-13] MEDS: SYNTHROID PO SCH (21:33)
[2019-07-13] MEDS: DEPAKOTE PO SCH (21:33)
[2019-07-13] MEDS: SEROQUEL PO SCH (21:33)
[2019-07-13] MEDS: LIPITOR PO SCH (21:34)
[2019-07-13] MEDS: PATIENT'S OWN MED VAG SCH (22:53)
[2019-07-14] MEDS: HUMALOG SUBQ SCH ×3 (00:11→12:51)
[2019-07-14] MEDS: ZYLOPRIM PO SCH (08:56)
[2019-07-14] MEDS: CELEBREX PO SCH (08:56)
[2019-07-14] MEDS: ARICEPT PO SCH (08:56)
[2019-07-14] MEDS: TOVIAZ PO SCH (08:57)
[2019-07-14] MEDS: PEPCID PO SCH (08:57)
[2019-07-14] MEDS: DEPAKOTE SPRINKLE PO SCH (08:57)
[2019-07-14] MEDS: MYRBETRIQ E.R. PO SCH (08:57)
[2019-07-14] MEDS: SYSTANE EYE DROPS OPH SCH (08:57)
[2019-07-14] MEDS: NORVASC PO SCH (08:57)
[2019-07-14] MEDS: ISOPTIN SR PO SCH (08:57)
[2019-07-14] MEDS: MYCOSTATIN POWDER TOP SCH (09:07)
[2019-07-14] MEDS: LOVENOX SUBQ SCH (12:00)
[2019-07-14 15:57] VITALS: BP 132/78
--- NOTE | 2019-07-14 16:09 | DISCHARGE SUMMARY ---
ADMISSION DATE: 07/01/2019 DISCHARGE DATE: 07/14/2019 HISTORY OF PRESENT ILLNESS: Her doctor is Dr. Darvin Vega. She presented with altered mental status. A 73-year-old, elderly female with a history of hypertension, CVA, hypothyroidism, diabetes mellitus type 2, depression, and psychosis, who presented to the emergency department with worsening confusion over the past several days. When she presented to the emergency department, she was moderately confused, was not making any sense. Her speech seemed somewhat pressured. On evaluation in the emergency room, it was thought she probably might have a UTI and maybe some mild dehydration, so she was admitted. PAST MEDICAL HISTORY: Includes asthma, CVA, hypothyroidism, diabetes mellitus type 2, sleep apnea, gastroesophageal reflux disease, hypertension, depression, hyperlipidemia. ADMISSION DIAGNOSES: 1. Altered mental status, multifactorial, possible dehydration and possible urinary tract infection. 2. Possible urinary tract infection. 3. Mild dehydration. 4. Diabetes mellitus type 2. 5. Hypertension. 6. Sleep apnea. HOSPITAL COURSE: She was admitted for observation. Head CT without contrast showed no acute process. Chest x-ray, there was no specific abnormality, no infiltrate. Neurology was asked to see. Dr. Story evaluated. [place] mental status change, acute confusional state of uncertain etiology. Her behavior during that time at bedside was unusual. Did not detect any obvious focal neurologic findings. Negative head CT was reassuring. We treated her with some hydration and for a possible urinary tract infection. An EEG was done. It was a normal electroencephalogram. The patient did get a cervical spine and chest x-ray. Reversal of normal curvature with prominent degenerative changes in the lower cervical spine. DISCHARGE DIAGNOSES: 1. Altered mental status on presentation. 2. Klebsiella pneumoniae urinary tract infection, completed antimicrobial therapy during the hospital course. 3. Delirium on presentation, presumably due to urinary tract infection with psychotic features. 4. Advanced Alzheimer's dementia and behavior disturbance. 5. Psychotic disorder with delusions due to other physiological, medical condition. The patient has been evaluated by psychiatry and she wanted to go to [facility]. 6. Degenerative cervical spine. She has been hospitalized for 13 days. Initially presented because of altered mental status and bizarre behaviors. I think her mentation is back to baseline. Infection was completely treated. She continued to exhibit clear delusional tendencies so can continue antipsychotic medication. She now has guardianship and would like to go to [facility]. I think she is ready to go. DISCHARGE MEDICATIONS: She is on Zyloprim 100 mg daily, Norvasc 5 mg a day, Lipitor 10 mg at bedtime, Celebrex 200 mg a day, Depakote 250 mg a day and 500 mg at bedtime, Aricept 5 mg daily, estradiol vaginal suppository Mondays and Fridays, Pepcid 20 mg p.o. daily, Toviaz 4 mg daily, Synthroid 50 mcg at bedtime, Singulair 10 mg a day, Pyridium 200 mg t.i.d. p.r.n., Seroquel 75 mg at bedtime, and verapamil SR or Isoptin SR 240 mg b.i.d. cc: Rashad Oates MD
== END 2019-07-14 18:02 | DRG 690 ==
LOC: 1N 18:25 → ED 18:25 → SUATTDRO 23:48
PROVIDERS: ATTEND Emergency Medicine